=== PATIENT | male | born 1940 | race Caucasian/White ===

== ENCOUNTER → 2019-10-11 00:01 | Outpatient (RCR) | payer OTHER, SELFPAY | LOC: ONCRAD 09-12 14:19 | PROVIDERS: Family Provider Family Medicine; Visit Provider Specialist | DX: Z51.0 Encounter for antineoplastic radiation therapy (principal); C61 Malignant neoplasm of prostate | CPT/HCPCS: 77300; 77336 ×3; 77338; 77385 ×21 ==

== ENCOUNTER 2019-10-31 06:10 | Outpatient (RCR) | payer OTHER, SELFPAY ==
--- NOTE | 2019-10-18 09:43 | ONCRAD TMN_ITS ---
Radiation Oncology Weekly Treatment Management Patient: Gabriele Sommers MR#: [id number] : 1940 Age: 79 Sex: Male Dictated by: Dr. Vincenzo Oconnor Date of Service: 10/18/2019 Referring Physician(s) : Dr. Jose Chambers Primary Diagnosis: C61 - Malignant neoplasm of prostate, Diagnosed 01/15/2018 (Active) Stage X, T2b, NX, MX Radiotherapy to date: Course: Prostate2018, Treatment Site: [id number], Ref. ID: [id number], Energy: 6X, Dose/Fx (cGy): 200, #Fx: 33 / 33, Dose Correction (cGy): 0, Total Dose (cGy): 6,600, Start Date: 08/25/2019, End Date: 10/14/2019, Elapsed Days: 50 Course: Prostate2018, Treatment Site: [id number], Ref. ID: [id number], Energy: 6X, Dose/Fx (cGy): 200, #Fx: 2 / 3, Dose Correction (cGy): 0, Total Dose (cGy): 400, Start Date: 10/17/2019, Elapsed Days: 1 Current Complaints/Interval History: Constitutional Denies lack of appetite, fatigue, fever and night sweats. Gastrointestinal Denies constipation and diarrhea. Has no rectal bleeding or irritation Genitourinary (M) Complains of nocturia gets up about 2 to 3 times per night. Denies dysuria, frequency and urgency. Current Medications: Bicalutamide, calcium, lutein, magnesium, omega 3. Allergies: medical tape. Vital Signs: Performed on 10/18/2019 9:26 AM BMI - 26.0 kg/m2 (high), Height - 70.00 in, Weight - 181.2 lbs, Temperature - 98.6 f, Pulse - 72, Respiration - 20, O2 Sat - 97 %, Pain - 0, Fatigue - 0 and BP - 123/ 82 mm(hg). Physical Exam: Appears stable, no skin erythema or desquamation. Performance Status: 0 - Fully active, able to carry on all predisease activities without restrictions. (ECOG) Lab: None pending in Radiation Oncology. Imaging: No new diagnostic imaging was performed since the last weekly treatment visit. All radiation therapy related imaging (including but not limited to CBCT generated images) was reviewed. Appropriate changes, if any, were made to assure accurate target localization. Impression/Plan: Tolerating treatment well with expected side effects. Continue treatment as planned. CPT: 87830 Signed by: Dr. Vincenzo Oconnor>10/18/2019 9:40:56 AM <<Signature on File>>
[2019-10-31 13:48] LABS: Basophils % 0.4 %; Eosinophils # 0.3 10^3/uL (0.0-0.8); Eosinophils % 5.5 %; Hematocrit 37.9 % (42.0-52.0); Hemoglobin 12.8 g/dL (11.7-16.6); Lymphocytes # 0.5 10^3/uL (0.8-4.8); Lymphocytes % 10.4 %; Mean Corpuscular HGB Conc 33.8 g/dL (30.0-36.0); Mean Corpuscular Hemoglobin 31.3 pg (28.0-34.0); Mean Corpuscular Volume 92.7 fL (80-94); Mean Platelet Volume 10.1 fL (7.4-10.4); Monocytes # 0.3 10^3/uL (0.2-0.9); Monocytes % 6.7 %; Neutrophils # 3.9 10^3/uL (1.8-7.7); Neutrophils % 76.4 %; Nucleated Red Blood Cells % 0 %; Platelet Count 150 10^3/cmm (130-400); Red Blood Count 4.09 10^6/uL (4.1-5.3); Red Cell Distribution Width 13.8 % (12.1-15.1); White Blood Count 5.1 10^3/uL (4.0-10.0)
[2019-10-31 14:17] LABS: Prostate Specific Antigen < 0.02 ng/mL (0-4)
[2019-10-31 14:19] LABS: Testosterone Total 2.5 ng/dL (193-740)
[2019-10-31] MEDS: lidocaine 1% INJ 20 mL INJECTION (15:28)
--- NOTE | 2019-10-31 15:28 | ONC FU_ITS ---
Dr. Quintero follow up note Patient: Gabriele Sommers Unit #: [id number]: 1940 Dicatated By: Saturnino Quintero M.D.Date of Visit:Oct 31, 2019 Onc Med Follow-up/Prog Note History of Present Illness: Mr. Gabriele Sommers, is a 79-year-old gentleman with history of prostrate cancer with [place] score 7 tumor in the majority of right side of the prostate and left side was essentially benign except a small Micro Focus of [place] 6 at left apex underwent robotic-assisted laparoscopic radical prostatectomy on 04/05/2018 and final pathology report showed acinar adenocarcinoma primary [place] pattern 4, secondary [place] pattern 3, approximately 50% prostrate was involved tumor size 2 x 1.8 x 1.6 cm with extra prostatic extension and seminal vesicle invasion seen margins involved invasive carcinoma there is multifocal involvement of periprosthetic soft tissue margins in the anterior and mid aspect of right peripheral zone. There is also focal involvement of periprostatic soft tissue margin in the posterior aspect of the left peripheral zone. Adenocarcinoma also extends to within 1 mm of apical margin bilaterally, lymphovascular invasion seen along the perineural invasion. And now lymph nodes were identified. Post operatively patient developed persistent leakage And no return of erectile function During follow-up with his urologist on 08/19/2018 his PSA gone up to 0.11 compared to 0 .04 on previous visit, As per patient, at that point role of radiation therapy was discussed. But patient declined, patient also declined hormonal therapy rather wants to try herbal therapy e.g. black 'sev', knowing the risks involved this plan. Patient was referred to radiation oncology for evaluation, he was seen by Dr. Oconnor on 09/30/2018, salvage radiation was recommended but patient declined that too. Now being observed with PSA while on Alternative therapy with [place] herbs Finally patient agreed to see radiation oncology on 08/18/2019 because of progressive PSA and agreed to take Casodex in addition to Zoladex. Patient was started on radiation therapy to prostate bed last week and he has completed one month of Casodex.Completed radiation therapy on 10/19/2019 Came for follow-up, denies any specific complaints no fever or chills, no nausea or vomiting, no dysuria and no hematuria. Occasionally hot flashes. Has completed radiation therapy to prostate on 10/19/2019. Tolerating ADT with Zoladex well. Medications: Lutein 1 Tablet (of 20 mg) Oral daily, st. davis wort 1 Capsule Oral daily, Vitamin B12 1 Tablet Oral daily Allergies: medical tape Review of Systems: Constitutional - Appetite is good and weight is stable. No fever, chills, or night sweats. Energy level is good. Pt reports some hot flashes, ENMT - No sinus congestion/drainage. No mouth sores. No sore throat or difficulty swallowing, Hematologic/Lymphatic - No abnormal bruising or bleeding, Respiratory - No shortness of breath. No cough. No pleuritic pain or hemoptysis, Cardiovascular - No angina pain. No palpitations, Gastrointestinal - No nausea or vomiting. No heartburn or acid reflux. No diarrhea or constipation. No blood in the stool or black stools, Genitourinary (M) - No dysuria or hematuria. No urinary frequency. No urgency or incontinence, Musculoskeletal - No joint or bone pain, Neurologic - No headache or dizziness. No numbness/paresthesias or other focal neurologic symptoms, Psychiatric - No anxiety or depression. No insomnia. Vital Signs: Performed on Oct 31, 2019 14:41 Height - 70.00 in Weight - 181.4 lbs (HIGH) BSA - 2.00 sq.m BMI - 26.03 Temperature - 98.4 F Pulse - 63 /min Respiration - 18 /min BP - 128/79 mm(hg) O2 Sat - 97 % Pain - 0 Performance Status: 1 - No physically strenuous activity, but ambulatory and able to carry out light or sedentary work (e.g. office work, light house work). (ECOG) Physical Examination: ENMT - No oral exudates, ulcers, masses, thrush or mucositis. Oropharynx clear. Tongue normal, Respiratory - Lungs are clear to auscultation without rhonchi or wheezing, Cardiovascular - Regular rate and rhythm of heart, Abdomen - Non-tender, non-distended, Good bowel sounds. No guarding or rebound tenderness. No pulsatile masses, Extremities - no edema. Lab/Imaging: Test performed on Oct 31, 2019 13:05 Testosterone 2.5 ng/dL WBC 5.1 10 3/uL RBC 4.09 10^12/L HGB 12.8 g/dL HCT 37.9 % MCV 92.7 fL MCH 31.3 pg MCHC 33.8 g/dL RDW 13.8 % Platelet Count 150 10 3/cmm MPV 10.1 fL Lymphocytes 0.5 10^9/L Neutrophils 0.0 10 3/uL Monocytes 0.3 10^9/L Eosinophils 0.3 10^9/L Basophils 0.0 10^9/L Neutrophil % 5.5 % Manual Lymphocytes 10.4 % Manual Monocytes 6.7 % Manual Eosinophils 5.5 % Manual Basophils 0.4 % NRBCs 0.0 /100 WBC PSA 0.02 ng/mL Test performed on Jul 19, 2019 13:07 Sodium 140 mmol/L Potassium 4.2 mmol/L Chloride 103 mmol/L CO2 25 mmol/L Anion Gap 16.2 BUN 25 mg/dL Creatinine 1.2 mg/dL Cr Clearance (Est) 55.73 mL/min Glucose 118 mg/dl Calcium 9.3 mg/dL Protein, Total 6.6 g/dL Albumin 4.4 g/dL Globulin 2.2 gm/dL Bilirubin, Total 0.8 mg/dL ALT (SGPT) 17 U/L AST (SGOT) 17 U/L Alkaline Phosphatase 95 U/L Impression: Adenocarcinoma prostate status post robotic-assisted laparoscopic radical prostatectomy done on 04/05/2018 final pathology report showed pT3, tumor invades the right seminal vesicle, with positive surgical margins, pNx no lymph nodes submitted, stage pT3,pNx,pMx Intermediate risk Now with progressive PSA level. Initially patient tried alternative therapy but finally started on ADT with Zoladex and Casodex on 08/25/2019 and concurrent with radiation therapy which he completed on 10/19/2019 Plan: Discussed with patient regarding his labs white blood count 5.1 hemoglobin 12.8 crit 37.9 platelets 150,000 PSA 0.02, testosterone 2.5 Clinically, patient is doing well, with no evidence of disease progression.. Patient is tolerating ADT with Zoladex alone well. We'll proceed with next 3 monthly dose of Zoladex today and then return to clinic in 3 months and Being intermediate risk, planning was to give him a short course of adjuvant ADT Signed By: Saturnino Quintero M.D. <<Signature on File>>
[2019-10-31] MEDS: goserelin acetate 10.8 mg Implant IM (15:48)
== END 2019-11-11 23:59 | disposition home or self-care (01) ==
LOC: ONCMED 06:10
PROVIDERS: Family Provider Family Medicine; PCP Family Medicine; Visit Provider Internal Medicine Hematology & Oncology
DX: Z51.0 Encounter for antineoplastic radiation therapy (principal); C61 Malignant neoplasm of prostate; Z79.818 Long term (current) use of other agents affecting estrogen receptors and estrogen levels; Z79.899 Other long term (current) drug therapy; Z90.79 Acquired absence of other genital organ(s)
CPT/HCPCS: 77014; 77336; 77385; 77427; 84153; 84403; 85025; 96372; 96402; 99214; J2001; J9202

== ENCOUNTER 2020-01-30 13:55 | Outpatient (CLI) | payer OTHER, SELFPAY ==
[2020-01-30 14:52] LABS: Prostate Specific Antigen < 0.02 ng/mL (0-4)
[2020-01-30] MEDS: lidocaine 1% INJ 20 mL INJECTION (15:57)
[2020-01-30] MEDS: goserelin acetate 10.8 mg Implant IM (16:09)
--- NOTE | 2020-01-30 16:21 | ONC FU_ITS ---
Dr. Quintero follow up note Patient: Gabriele Sommers Unit #: [id number]: 1940 Dicatated By: Saturnino Quintero M.D.Date of Visit:Jan 30, 2020 Onc Med Follow-up/Prog Note History of Present Illness: Mr. 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 There is also focal involvement of periprostatic soft tissue margin in the posterior aspect of the left peripheral zone. Adenocarcinoma also extends to within 1 mm of apical margin bilaterally, lymphovascular invasion seen along the perineural invasion. And now lymph nodes were identified. Post operatively patient developed persistent leakage And no return of erectile function During follow-up with his urologist on 08/19/2018 his PSA gone up to 0.11 compared to 0 .04 on previous visit, As per patient, at that point role of radiation therapy was discussed. But patient declined, patient also declined hormonal therapy rather wants to try herbal therapy e.g. black 'sev', knowing the risks involved this plan. Patient was referred to radiation oncology for evaluation, he was seen by Dr. Oconnor on 09/30/2018, salvage radiation was recommended but patient declined that too. Now being observed with PSA while on Alternative therapy with [place] herbs Finally patient agreed to see radiation oncology on 08/18/2019 because of progressive PSA and agreed to take Casodex in addition to Zoladex. Patient was started on radiation therapy to prostate bed last week and he has completed one month of Casodex.Completed radiation therapy on 10/19/2019 Came for follow-up, denies any specific complaints no fever or chills, no nausea or vomiting, no dysuria and no hematuria. Occasionally hot flashes. Has completed radiation therapy to prostate on 10/19/2019. Tolerating ADT with Zoladex well Came for follow-up, denies any specific complaints, except generalized weakness and fatigue, occasionally hot flashes otherwise no fever or chills, no nausea vomiting and tolerating 3 monthly Zoladex well Medications: Calcium 1 Tablet (of 500 mg) Oral daily, Lutein 1 Tablet (of 20 mg) Oral daily, st. davis wort 1 Capsule Oral daily, Vitamin B12 1 Tablet Oral daily Allergies: medical tape Review of Systems: Review of Systems is not available for this patient. Vital Signs: Performed on Jan 30, 2020 15:06 Height - 70.00 in Weight - 186.6 lbs (HIGH) BSA - 2.03 sq.m BMI - 26.77 Temperature - 97.9 F (LOW) Pulse - 65 /min Respiration - 17 /min BP - 140/90 mm(hg) O2 Sat - 96 % Pain - 0 Performance Status: 0 - Fully active, able to carry on all predisease activities without restrictions. (ECOG) Physical Examination: ENMT - no sores or thrush, Tongue normal, Respiratory - Lungs are clear to auscultation, Cardiovascular - Regular rate and rhythm of heart, Abdomen - Non-tender, Good bowel sounds. No guarding or rebound tenderness, Extremities - no edema. Lab/Imaging: Test performed on Oct 31, 2019 13:05 Testosterone 2.5 ng/dL WBC 5.1 10 3/uL RBC 4.09 10^12/L HGB 12.8 g/dL HCT 37.9 % MCV 92.7 fL MCH 31.3 pg MCHC 33.8 g/dL RDW 13.8 % Platelet Count 150 10 3/cmm MPV 10.1 fL Lymphocytes 0.5 10^9/L Neutrophils 0.0 10 3/uL Monocytes 0.3 10^9/L Eosinophils 0.3 10^9/L Basophils 0.0 10^9/L Neutrophil % 5.5 % Manual Lymphocytes 10.4 % Manual Monocytes 6.7 % Manual Eosinophils 5.5 % Manual Basophils 0.4 % NRBCs 0.0 /100 WBC PSA 0.02 ng/mL Impression: Adenocarcinoma prostate status post robotic-assisted laparoscopic radical prostatectomy done on 04/05/2018 final pathology report showed pT3, tumor invades the right seminal vesicle, with positive surgical margins, pNx no lymph nodes submitted, stage pT3,pNx,pMx Intermediate risk Now with progressive PSA level. Initially patient tried alternative therapy but finally started on ADT with Zoladex and Casodex on 08/25/2019 and concurrent with radiation therapy which he completed on 10/19/2019 Plan: Discussed with patient regarding his labs his PSA is less than 0.02 Clinically, patient is doing well with no signs symptoms suggestive of recurrence/progression of prostrate cancer. His PSA is less than 0.02, and tolerating Zoladex well. We'll proceed with next 3 monthly dose of Zoladex today and then he will return to clinic in 3 months with PSA, patient continue to tolerate Zoladex well then we'll give him final dose of adjuvant Zoladex in 3 months. Signed By: Saturnino Quintero M.D. <<Signature on File>>
== END 2020-01-30 13:56 | disposition home or self-care (01) ==
PROVIDERS: Family Provider Family Medicine; PCP Family Medicine; Visit Provider Internal Medicine Hematology & Oncology
DX: C61 Malignant neoplasm of prostate (principal); Z79.818 Long term (current) use of other agents affecting estrogen receptors and estrogen levels; Z79.899 Other long term (current) drug therapy
CPT/HCPCS: 36415; 84153; 96372; 96402; 99214; J2001; J9202

== ENCOUNTER 2020-04-03 09:14 | Outpatient (CLI) | payer OTHER, SELFPAY ==
[2020-04-03 10:05] LABS: Prostate Specific Antigen 0.006 ng/mL (0-4)
[2020-04-03 10:06] LABS: Testosterone Total 2.5 ng/dL (193-740)
--- NOTE | 2020-04-03 18:46 | ONC FU_ITS ---
Dr. Quintero follow up note Patient: Gabriele Sommers Unit #: [id number]: 1940 Dicatated By: Saturnino Quintero M.D.Date of Visit:Apr 03, 2020 Onc Med Follow-up/Prog Note History of Present Illness: Mr. 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 There is also focal involvement of periprostatic soft tissue margin in the posterior aspect of the left peripheral zone. Adenocarcinoma also extends to within 1 mm of apical margin bilaterally, lymphovascular invasion seen along the perineural invasion. And now lymph nodes were identified. Post operatively patient developed persistent leakage And no return of erectile function During follow-up with his urologist on 08/19/2018 his PSA gone up to 0.11 compared to 0 .04 on previous visit, As per patient, at that point role of radiation therapy was discussed. But patient declined, patient also declined hormonal therapy rather wants to try herbal therapy e.g. black 'sev', knowing the risks involved this plan. Patient was referred to radiation oncology for evaluation, he was seen by Dr. Oconnor on 09/30/2018, salvage radiation was recommended but patient declined that too. Now being observed with PSA while on Alternative therapy with [place] herbs Finally patient agreed to see radiation oncology on 08/18/2019 because of progressive PSA and agreed to take Casodex in addition to Zoladex. Patient was started on radiation therapy to prostate bed last week and he has completed one month of Casodex.Completed radiation therapy on 10/19/2019 Now on 3 monthly Zoladex therapy Came for follow-up, denies any specific complaints except chronic bilateral shoulder pain more on the left side with restricted movement and also complaining of neck stiffness which is chronic in nature and bilateral wrist swellings. As per patient and his due to decline in his cognitive status he underwent MRI scan of the brain on March 02, 2020 which showed no significant abnormality but indeterminate 13 mm enhancing lesion within the right occipital bone which is nonspecific and bone scan was recommended so patient underwent bone scan on March 20, 2020 which showed calvarial lesion in question shows increased uptake and is concerning for potential neoplasm. And also asymmetric increased uptake pertaining to the left humeral head that may be simply represent degenerative changes although neoplasm cannot be excluded. Because of this abnormality he was sent to clinic for evaluation. Patient denies any trauma to his head or his right scalp. But he has a chronic left shoulder arthritis which is progressive and now restricting movement.Otherwise tolerating 3 monthly Zoladex well Medications: Calcium 1 Tablet (of 500 mg) Oral daily, Lutein 1 Tablet (of 20 mg) Oral daily, st. davis wort 1 Capsule Oral daily, Vitamin B12 1 Tablet Oral daily Allergies: medical tape Review of Systems: Constitutional - Appetite is good and weight is stable. No fever, chills, or night sweats. Energy level is good. Pt reports some hot flashes, ENMT - No sinus congestion/drainage. No mouth sores. No sore throat or difficulty swallowing, Hematologic/Lymphatic - No abnormal bruising or bleeding, Respiratory - No shortness of breath. No cough. No pleuritic pain or hemoptysis, Cardiovascular - No angina pain. No palpitations, Gastrointestinal - No nausea or vomiting. No heartburn or acid reflux. No diarrhea or constipation. No blood in the stool or black stools, Genitourinary (M) - No dysuria or hematuria. No urinary frequency. No urgency or incontinence, Musculoskeletal - No joint or bone pain, Neurologic - No headache or dizziness. No numbness/paresthesias or other focal neurologic symptoms, Psychiatric - No anxiety or depression. No insomnia. Vital Signs: Performed on Apr 03, 2020 08:19 Height - 70.00 in Weight - 188.0 lbs (HIGH) BSA - 2.03 sq.m BMI - 26.98 Temperature - 98.4 F Pulse - 66 /min Respiration - 18 /min BP - 126/87 mm(hg) O2 Sat - 97 % Pain - 5 Performance Status: 1 - No physically strenuous activity, but ambulatory and able to carry out light or sedentary work (e.g. office work, light house work). (ECOG) Physical Examination: ENMT - No mouth sores, no jaundice, no thrush, Respiratory - Lungs are clear, Cardiovascular - Regular rate and rhythm of heart, Abdomen - Soft, bowel sounds present, Extremities - No visible edema. Lab/Imaging: Test performed on Jan 30, 2020 14:13 PSA < 0.02 ng/mL Test performed on Oct 31, 2019 13:05 Testosterone 2.5 ng/dL WBC 5.1 10 3/uL RBC 4.09 10^12/L HGB 12.8 g/dL HCT 37.9 % MCV 92.7 fL MCH 31.3 pg MCHC 33.8 g/dL RDW 13.8 % Platelet Count 150 10 3/cmm MPV 10.1 fL Lymphocytes 0.5 10^9/L Neutrophils 0.0 10 3/uL Monocytes 0.3 10^9/L Eosinophils 0.3 10^9/L Basophils 0.0 10^9/L Neutrophil % 5.5 % Manual Lymphocytes 10.4 % Manual Monocytes 6.7 % Manual Eosinophils 5.5 % Manual Basophils 0.4 % NRBCs 0.0 /100 WBC Impression: Adenocarcinoma prostate status post robotic-assisted laparoscopic radical prostatectomy done on 04/05/2018 final pathology report showed pT3, tumor invades the right seminal vesicle, with positive surgical margins, pNx no lymph nodes submitted, stage pT3,pNx,pMx Intermediate risk Now with progressive PSA level. Initially patient tried alternative therapy but finally started on ADT with Zoladex and Casodex on 08/25/2019 and concurrent with radiation therapy which he completed on 10/19/2019 Plan: Discussed with patient regarding his bone scan/MRI scan of her head findings clinically it appears findings are very nonspecific and his last PSA was checked in January was almost undetectable and he is being treated with ADT with Zoladex with excellent disease control and his MRI scan of head findings were very nonspecific whereas bone scan findings again a single lesion in right calvarium and left humeral head lesion could be due to arthritis. We will repeat his PSA if his PSA shows progression then will consider further work-up which includes CT scan of abdomen pelvis otherwise we will continue with 3 monthly Zoladex which is due next month and repeat his bone scan in 3 months. Because of progressive musculoskeletal pain and arthritis involving bilateral wrists bilateral shoulder and neck, we will refer him to rheumatology for evaluation. Patient may benefit from MRI scan of left shoulder regarding shoulder pain and restricted movement management as well as evaluation of left humerus head lesion seen on bone scan. Patient return to clinic in a month for his 3 monthly scheduled Zoladex, and we will repeat his PSA at that time too. Signed By: Saturnino Quinetro M.D. <<Signature on File>>
== END 2020-04-03 09:15 | disposition home or self-care (01) ==
PROVIDERS: PCP Family Medicine; Visit Provider Internal Medicine Hematology & Oncology
DX: C61 Malignant neoplasm of prostate (principal); R97.21 Rising PSA following treatment for malignant neoplasm of prostate; R94.8 Abnormal results of function studies of other organs and systems; M79.10 Myalgia, unspecified site; M13.832 Other specified arthritis, left wrist; M13.831 Other specified arthritis, right wrist; M25.512 Pain in left shoulder; Z90.79 Acquired absence of other genital organ(s); Z79.818 Long term (current) use of other agents affecting estrogen receptors and estrogen levels
CPT/HCPCS: 84153; 84403; 99214

== ENCOUNTER → 2020-05-03 15:55 | Outpatient (BNVA) | payer OTHER, SELFPAY | PROVIDERS: PCP Family Medicine; Visit Provider Internal Medicine Rheumatology | DX: M19.90 Unspecified osteoarthritis, unspecified site (principal); Z79.899 Other long term (current) drug therapy; M25.541 Pain in joints of right hand; M25.542 Pain in joints of left hand; M75.00 Adhesive capsulitis of unspecified shoulder; G20 Parkinson's disease; C61 Malignant neoplasm of prostate; G89.29 Other chronic pain; M54.5 Low back pain | CPT/HCPCS: 99204 ==

== ENCOUNTER 2020-05-04 13:51 | Outpatient (CLI) | payer OTHER, SELFPAY ==
--- NOTE | 2020-05-04 13:55 | XRR_ITS ---
PROCEDURE INFORMATION: Exam: XR Left Foot Complete Exam date and time: 05/04/2020 2:22 PM Age: 80 years old Clinical indication: Foot; Left; Patient HX: C/O bilat joint pain extremities x 2 years. Inflammatory arthritis. HX of prostate cancer TECHNIQUE: Imaging protocol: XR Left foot. Views: 3 or more views. COMPARISON: No relevant prior studies available. FINDINGS: Bones/joints: Negative for acute bony abnormality Soft tissues: Normal. XR/XR foot LT min 3V* [id number] IMPRESSION: No acute findings.
--- NOTE | 2020-05-04 13:55 | XRR_ITS ---
PROCEDURE INFORMATION: Exam: XR Left Shoulder Exam date and time: 05/04/2020 2:22 PM Age: 80 years old Clinical indication: Shoulder; Left; Patient HX: C/O bilat joint pain extremities x 2 years. Inflammatory arthritis. HX of prostate cancer TECHNIQUE: Imaging protocol: XR Left shoulder. Views: 2 or more views. COMPARISON: No relevant prior studies available. FINDINGS: Bones/joints: Negative for acute bony abnormality. There is osteoarthritis involving the glenohumeral joint with narrowing sclerosis and bone spurs. Soft tissues: Unremarkable There is a ossific structure extending from the lateral aspect of the humeral head traversing the clavicle which may represent a normal variation XR/XR shoulder LT 1V [id number] IMPRESSION: 1. No acute findings. 2. Osteoarthritis
--- NOTE | 2020-05-04 13:55 | XRR_ITS ---
PROCEDURE INFORMATION: Exam: XR Right Shoulder Exam date and time: 05/04/2020 2:22 PM Age: 80 years old Clinical indication: Shoulder; Right; Patient HX: C/O bilat joint pain extremities x 2 years. Inflammatory arthritis. HX of prostate cancer TECHNIQUE: Imaging protocol: XR Right shoulder. Views: 1 view. COMPARISON: No relevant prior studies available. FINDINGS: Bones/joints: Negative for acute bony abnormality. Osteoarthritis is seen with sclerosis and narrowing with bone spurs in the glenohumeral joint. There is a nonanatomic structure extending from the lateral humeral head to the superior aspect of the clavicle. This finding is of unclear etiology . . Examination is negative for blastic metastatic changes associated with prostate disease Soft tissues: Unremarkable soft tissues. XR/XR shoulder RT 1V [id number] IMPRESSION: Osteoarthritis of the glenohumeral joint Negative for acute bony abnormality. Non anatomic structure right shoulder as described
--- NOTE | 2020-05-04 13:55 | XRR_ITS ---
PROCEDURE INFORMATION: Exam: XR Left Hand Exam date and time: 05/04/2020 2:17 PM Age: 80 years old Clinical indication: Hand; Left; Patient HX: C/O bilat joint pain extremities. Inflammatory arthritis. HX of prostate cancer TECHNIQUE: Imaging protocol: XR Left hand. Views: 3 or more views. COMPARISON: No relevant prior studies available. FINDINGS: Bones/joints: There is evidence of mild osteoarthritis seen with narrowing of the interphalangeal articulations and the radiocarpal articulation. No acute bony abnormalities seen. Soft tissues: Normal. XR/XR hand LT min 3V* [id number] IMPRESSION: No acute bony abnormality.
--- NOTE | 2020-05-04 13:55 | XRR_ITS ---
PROCEDURE INFORMATION: Exam: XR Right Foot Complete Exam date and time: 05/04/2020 2:20 PM Age: 80 years old Clinical indication: Foot; Right; Patient HX: C/O bilat joint pain extremities x 2 years. Inflammatory arthritis. HX of prostate cancer TECHNIQUE: Imaging protocol: XR Right foot. Views: 3 or more views. COMPARISON: No relevant prior studies available. FINDINGS: Bones/joints: Negative for acute bony abnormality. The exam is negative for bone changes corresponding to inflammatory arthritis Soft tissues: Normal. XR/XR foot RT min 3V* [id number] IMPRESSION: No acute findings.
--- NOTE | 2020-05-04 13:55 | XRR_ITS ---
PROCEDURE INFORMATION: Exam: XR Lumbosacral Spine, 2 or 3 Views Exam date and time: 05/04/2020 2:20 PM Age: 80 years old Clinical indication: Low back pain and other: Bilat joint pain; Patient HX: Low back pain x 2 weeks. Bilat joint pain x 2 years. HX of prostate cancer; Additional info: Inflammatory arthritis TECHNIQUE: Imaging protocol: XR of the lumbosacral spine, 2 or 3 views. COMPARISON: CT Abdomen/[facility]el[facility] [id number] 02/24/2018 10:11 AM FINDINGS: Vertebrae: Moderate to severe multilevel spine degenerative changes including degenerative disc disease, spondylosis and facet degenerative changes. Vasculature: Calcification of the abdominal aorta and/or iliac arteries consistent with atherosclerotic vessel disease. Soft tissues: Unremarkable. XR/XR lumbar spine 2-3V* [id number] IMPRESSION: Moderate to severe multilevel spine degenerative changes including degenerative disc disease, spondylosis and facet degenerative changes.
--- NOTE | 2020-05-04 13:55 | XRR_ITS ---
PROCEDURE INFORMATION: Exam: XR Chest, 2 Views Exam date and time: 05/04/2020 2:22 PM Age: 80 years old Clinical indication: Other: Bilat joint pain extremities; Patient HX: C/O bilat joint pain. No chest symptoms. Inflammatory arthritis. HX of prostate cancer TECHNIQUE: Imaging protocol: XR of the chest Views: 2 views. COMPARISON: No relevant prior studies available. FINDINGS: Lungs: Unremarkable. No consolidation. Pleural space: Unremarkable. No pleural effusion. No pneumothorax. Heart/Mediastinum: Unremarkable. No cardiomegaly. Bones/joints: Unremarkable. XR/XR chest 2V* [id number] IMPRESSION: No acute findings.
--- NOTE | 2020-05-04 13:55 | XRR_ITS ---
PROCEDURE INFORMATION: Exam: XR Right Hand Exam date and time: 05/04/2020 2:14 PM Age: 80 years old Clinical indication: Hand; Right; Patient HX: C/O bilat joint pain extremities x 2 years. Inflammatory arthritis. HX of prostate cancer TECHNIQUE: Imaging protocol: XR Right hand. Views: 3 or more views. COMPARISON: No relevant prior studies available. FINDINGS: Bones/joints: There is mild osteoarthritis seen with narrowing of the interphalangeal articulations of multiple digits. Sclerosis and narrowing is seen in the radiocarpal articulation and the 1st carpal metacarpal articulation. Exam is negative for acute fractures. Soft tissues: Normal. XR/XR hand RT min 3V* [id number] IMPRESSION: Negative for acute bony abnormality
[2020-05-04 14:40] LABS: Basophils % 0.4 %; Eosinophils # 0.2 10^3/uL (0.0-0.8); Eosinophils % 4.6 %; Hematocrit 38.7 % (42.0-52.0); Hemoglobin 12.8 g/dL (11.7-16.6); Lymphocytes # 0.9 10^3/uL (0.8-4.8); Mean Corpuscular HGB Conc 33.1 g/dL (30.0-36.0); Mean Corpuscular Hemoglobin 30.1 pg (28.0-34.0); Mean Corpuscular Volume 91.1 fL (80-94); Mean Platelet Volume 10.4 fL (7.4-10.4); Monocytes # 0.4 10^3/uL (0.2-0.9); Monocytes % 8.8 %; Neutrophils # 3.41 10^3/uL (1.8-7.7); Neutrophils % 68.4 %; Nucleated Red Blood Cells % 0 %; Platelet Count 147 10^3/cmm (130-400); Red Blood Count 4.25 10^6/uL (4.1-5.3); Red Cell Distribution Width 13.7 % (12.1-15.1)
[2020-05-04 15:08] LABS: Alanine Aminotransferase 15 U/L (0-41); Albumin Level 4.2 g/dL (3.5-5.2); Alkaline Phosphatase 78 IU/L (40-130); Aspartate Amino Transferase 16 U/L (0-40); C Reactive Protein 0.6 mg/L (0.0-4.9); Globulin 2.5 g/dL (1.3-4.6); Total Bilirubin 0.6 mg/dL (0.15-1.2); Total Protein 6.7 g/dL (6.6-8.7)
[2020-05-04 15:26] LABS: Erythrocyte Sedimentation Rate 13 mm/hr (0-10)
[2020-05-04 15:27] LABS: 25 Hydroxy Vitamin D 39 ng/mL (30-100)
[2020-05-04 16:10] LABS: Hepatitis C Virus Antibody Non-Reactive (Nonreactive)
[2020-05-04 16:11] LABS: Hepatitis B Surface Antigen Non-Reactive (Nonreactive)
[2020-05-04 16:21] LABS: Hepatitis B Core AB, Total Non-Reactive (Nonreactive)
[2020-05-07 12:45] LABS: Quantiferon Mitogen 9.92 IU/mL; Quantiferon Nil 0.01 IU/mL; Quantiferon Plus TB2 0.01 IU/mL; Quantiferon TB Gold NEGATIVE (NEGATIVE)
[2020-05-07 15:05] LABS: Cyclic Citrullinated Peptide <16 UNITS
== END 2020-05-04 13:52 | disposition home or self-care (01) ==
PROVIDERS: PCP Family Medicine; Visit Provider Internal Medicine Rheumatology
DX: M19.90 Unspecified osteoarthritis, unspecified site (principal); Z79.899 Other long term (current) drug therapy; Z11.59 Encounter for screening for other viral diseases; Z85.46 Personal history of malignant neoplasm of prostate; M19.012 Primary osteoarthritis, left shoulder; M19.011 Primary osteoarthritis, right shoulder; M51.36 Other intervertebral disc degeneration, lumbar region; M47.816 Spondylosis without myelopathy or radiculopathy, lumbar region
CPT/HCPCS: 36415; 71046; 72100; 73020; 73130; 73630; 80076; 82306; 82565; 85025; 85651; 86140; 86431; 86480; 86704; 86803; 87340

== ENCOUNTER → 2020-06-04 13:59 | Outpatient (BNVA) | payer OTHER, SELFPAY | PROVIDERS: PCP Family Medicine; Visit Provider Internal Medicine Rheumatology | DX: M25.541 Pain in joints of right hand (principal); Z79.899 Other long term (current) drug therapy; M25.542 Pain in joints of left hand; G20 Parkinson's disease; C61 Malignant neoplasm of prostate; M54.5 Low back pain; G89.29 Other chronic pain; M75.01 Adhesive capsulitis of right shoulder; M75.02 Adhesive capsulitis of left shoulder | CPT/HCPCS: 99214 ==

== ENCOUNTER 2020-06-21 10:25 | Outpatient (CLI) | payer OTHER, SELFPAY ==
--- NOTE | 2020-06-21 11:00 | MR_ITS ---
WS: [id number] MRI LEFT SHOULDER NONCONTRAST TECHNIQUE: Sagittal T2, coronal T1, T2 and proton density imaging. Axial gradient PDE imaging. CLINICAL INFORMATION: M19.90 Unspecified osteoarthritis, unspecified site COMPARISON: None. FINDINGS: Advanced degenerative arthritis AC joint. Loss of the subacromial space. Small amount of subacromial subdeltoid fluid. Advanced degenerative narrowing at the glenohumeral joint with subchondral cystic c hange involving the humeral head and glenoid. Advanced joint space narrowing. Hypertrophic spurring a long the medial humeral neck. Diffuse chronic thinning of the supraspinatus and infraspinatus. No full-thickness rotator cuff tears . Normal teres minor. Chronic thinning of the subscapularis. Normal biceps tendon in the bicipital gr oove. Physiologic fluid along the biceps tendon sheath. Cystic degenerative change involving the carlita ral head and greater tuberosity. MR/MR shoulder LT wo con* [id number] IMPRESSION: 1. Advanced degenerative arthritis at the glenohumeral joint with subchondral cystic change and complete loss of the joint space. 2. Loss of the subacromial space with chronic thinning of the rotator cuff. Ch ronic thinning of the supraspinatus and infraspinatus. No full-thickness rotato r cuff tears. 3. Normal biceps tendon in the bicipital groove. 4. Hypertrophic spurring along the medial humeral neck and glenoid. 5. Moderate degenerative arthritis AC joint with a small amount of edema.
--- NOTE | 2020-06-21 11:45 | MR_ITS ---
WS: [id number] MRI RIGHT SHOULDER NONCONTRAST TECHNIQUE: Sagittal T2, coronal T1, T2 and proton density imaging. Axial gradient PDE imaging. CLINICAL INFORMATION: M25.519 Pain in unspecified shoulder COMPARISON: None. FINDINGS: Advanced degenerative arthritis at the AC joint with a small amount of edema. Subacromial spurring. N arrowing of the subacromial space. Advanced degenerative narrowing at the glenohumeral joint with sub chondral cystic change. Hypertrophic spurring along the medial humeral neck. Normal supraspinatus and infraspinatus with chronic thinning. Normal teres minor. Chronic thinning of the subscapularis which is grossly intact. No full-thickness rotator cuff tears. Normal biceps tendon in the bicipital groove. Chronic degenerative fraying of the glenoid labrum. MR/MR shoulder RT wo con* [id number] IMPRESSION: 1. Moderate degenerative arthritis at the AC joint with small amount of edema and subacromial spurring. Narrowing of the subacromial space. 2. Advanced degenerative narrowing at the glenohumeral joint with hypertrophic spurring and subchondral cystic change. 3. Chronic thinning of the supraspinatus and infraspinatus. No full-thickness rotator cuff tears. 4. Normal biceps tendon in the bicipital groove.
== END 2020-06-21 10:26 | disposition home or self-care (01) ==
LOC: RADSHAW 10:26
PROVIDERS: PCP Family Medicine; Visit Provider Internal Medicine Rheumatology
DX: M19.90 Unspecified osteoarthritis, unspecified site (principal); R93.89 Abnormal findings on diagnostic imaging of other specified body structures; M19.011 Primary osteoarthritis, right shoulder; R60.0 Localized edema; M19.012 Primary osteoarthritis, left shoulder
CPT/HCPCS: 73221

== ENCOUNTER 2020-07-05 07:50 | Outpatient (CLI) | payer OTHER, SELFPAY ==
--- NOTE | 2020-07-05 07:56 | NM_ITS ---
WS: [id number] NUCLEAR MEDICINE BONE SCAN Radiopharmaceutical: 25.1 Tc-99m MDP mCi IV Injection site: Left antecubital Postinjection imaging delay: 1 hr CLINICAL INFORMATION: RE-STAGING EVALUATION/PROSTATE CA/BONE PAIN COMPARISON: FINDINGS: Bone lesions: There are no osseous lesions suspicious for metastatic disease. Soft tissue contours: Normal. Kidneys: Normal. Other findings: Degenerative arthritis left glenohumeral joint. This is stable since 2011. Previously described uptake at the left tibial tuberosity has decreased in intensity. NM/NM bone scan whole body* [id number] IMPRESSION: No evidence of osseous metastatic disease.
[2020-07-05 08:54] LABS: Prostate Specific Antigen < 0.006 ng/mL (0-4)
== END 2020-07-05 07:51 | disposition home or self-care (01) ==
LOC: NM 07:50
PROVIDERS: PCP Family Medicine; Visit Provider Internal Medicine Hematology & Oncology
DX: C61 Malignant neoplasm of prostate (principal)
CPT/HCPCS: 36415; 78306; 84153; A9561

== ENCOUNTER 2020-07-13 09:30 | Outpatient (CLI) | payer OTHER, SELFPAY ==
--- NOTE | 2020-07-13 12:20 | ONC FU_ITS ---
Dr. Quintero follow up note Patient: Gabriele Sommers Unit #: [id number]: 1940 Dicatated By: Saturnino Quintero M.D.Date of Visit:Jul 13, 2020 Onc Med Follow-up/Prog Note History of Present Illness: Mr. 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 There is also focal involvement of periprostatic soft tissue margin in the posterior aspect of the left peripheral zone. Adenocarcinoma also extends to within 1 mm of apical margin bilaterally, lymphovascular invasion seen along the perineural invasion. And now lymph nodes were identified. Post operatively patient developed persistent leakage And no return of erectile function During follow-up with his urologist on 08/19/2018 his PSA gone up to 0.11 compared to 0 .04 on previous visit, As per patient, at that point role of radiation therapy was discussed. But patient declined, patient also declined hormonal therapy rather wants to try herbal therapy e.g. black 'sev', knowing the risks involved this plan. Patient was referred to radiation oncology for evaluation, he was seen by Dr. Oconnor on 09/30/2018, salvage radiation was recommended but patient declined that too. Now being observed with PSA while on Alternative therapy with [place] herbs Finally patient agreed to see radiation oncology on 08/18/2019 because of progressive PSA and agreed to take Casodex in addition to Zoladex. Patient was started on radiation therapy to prostate bed last week and he has completed one month of Casodex.Completed radiation therapy on 10/19/2019 Patient continue with Zoladex still January 30, 2020, he was supposed to come back for 3 monthly dose in April 2020 but patient and his decided not to take anymore because of related side effects e.g. hot flashes. 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 Medications: Acetaminophen Extra Strength 2 Tablet (of 500 mg) Oral b.i.d., Calcium 1 Tablet (of 500 mg) Oral daily, Hydroxychloroquine Sulfate 1 Tablet (of 200 mg) Oral b.i.d., Lutein 1 Tablet (of 20 mg) Oral daily, st. davis wort 1 Capsule Oral daily, Vitamin B12 1 Tablet Oral daily Allergies: medical tape Review of Systems: Constitutional - Appetite is good and weight is stable. No fever, chills, or night sweats. Energy level is good. Pt reports some hot flashes, ENMT - No sinus congestion/drainage. No mouth sores. No sore throat or difficulty swallowing, Hematologic/Lymphatic - No abnormal bruising or bleeding, Respiratory - No shortness of breath. No cough. No pleuritic pain or hemoptysis, Cardiovascular - No angina pain. No palpitations, Gastrointestinal - No nausea or vomiting. No heartburn or acid reflux. No diarrhea or constipation. No blood in the stool or black stools, Genitourinary (M) - No dysuria or hematuria. No urinary frequency. No urgency or incontinence, Musculoskeletal - Positive for shoulder pain, Neurologic - No headache or dizziness. No numbness/paresthesias or other focal neurologic symptoms, Psychiatric - No anxiety or depression. No insomnia. Vital Signs: Performed on Jul 13, 2020 10:01 Height - 70.00 in Weight - 186.6 lbs (LOW) BSA - 2.03 sq.m BMI - 26.77 Temperature - 97.3 F (LOW) Pulse - 57 /min (LOW) Respiration - 20 /min BP - 159/92 mm(hg) (HIGH) O2 Sat - 99 % Pain - 0 Performance Status: 1 - No physically strenuous activity, but ambulatory and able to carry out light or sedentary work (e.g. office work, light house work). (ECOG) Physical Examination: ENMT - No mouth sores, no thrush no jaundice, Respiratory - Lungs are clear to auscultation, Cardiovascular - Regular rate and rhythm of heart, Abdomen - Soft, bowel sounds, Extremities - No visible edema. Lab/Imaging: Test performed on Apr 03, 2020 09:25 Testosterone, Total 2.5 ng/dL PSA 0.006 ng/mL Impression: Adenocarcinoma prostate status post robotic-assisted laparoscopic radical prostatectomy done on 04/05/2018 final pathology report showed pT3, tumor invades the right seminal vesicle, with positive surgical margins, pNx no lymph nodes submitted, stage pT3,pNx,pMx Intermediate risk Now with progressive PSA level. Initially patient tried alternative therapy but finally started on ADT with Zoladex and Casodex on 08/25/2019 and concurrent with radiation therapy which he completed on 10/19/2019 Plan: Discussed with patient regarding his labs PSA less than 0.006 and bone scan done on July 05, 2020 showed no evidence of bone mets Clinically, patient doing well with no new signs symptom except chronic bilateral shoulder pain more on the left side, patient is being followed by pot lining supervisor. As for the prostate cancer is concerned his PSA continues to improve now less than 0.006 and recently done follow-up bone scan shows no evidence of bone mets, patient decided to discontinue Zoladex on his own and did not come for his 3 monthly dose in April 2020 and now patient and his have decided to discontinue all the treatment rather opted for follow-up with observation alone. Knowing all the risk versus benefits involved with observation alone option. So at patient's request we will discontinue Zoladex rather observe he will return to clinic in 3 months with PSA. Signed By: Saturnino Quintero M.D. <<Signature on File>>
== END 2020-07-13 09:31 | disposition home or self-care (01) ==
LOC: ONCMED 09:31
PROVIDERS: PCP Family Medicine; Visit Provider Internal Medicine Hematology & Oncology
DX: C61 Malignant neoplasm of prostate (principal); Z92.23 Personal history of estrogen therapy; Z90.79 Acquired absence of other genital organ(s)
CPT/HCPCS: G0463

== ENCOUNTER → 2020-08-15 14:54 | Outpatient (BNVA) | payer OTHER, SELFPAY | PROVIDERS: PCP Family Medicine; Visit Provider Internal Medicine Rheumatology | DX: Z79.899 Other long term (current) drug therapy (principal) | CPT/HCPCS: 80076; 82565; 85025; 85651; 86140 ==

== ENCOUNTER → 2020-08-30 09:18 | Outpatient (BNVA) | payer OTHER, SELFPAY | PROVIDERS: PCP Family Medicine; Referring Provider Internal Medicine Rheumatology; Visit Provider Specialist | DX: M25.512 Pain in left shoulder (principal); M19.012 Primary osteoarthritis, left shoulder | CPT/HCPCS: 73030 ==

== ENCOUNTER → 2020-09-18 14:59 | Outpatient (BNVA) | payer OTHER, SELFPAY | PROVIDERS: PCP Family Medicine; Visit Provider Internal Medicine Rheumatology | DX: M15.9 Polyosteoarthritis, unspecified (principal); M75.00 Adhesive capsulitis of unspecified shoulder; Z79.899 Other long term (current) drug therapy; M54.5 Low back pain; G89.29 Other chronic pain; Z87.891 Personal history of nicotine dependence | CPT/HCPCS: 99214 ==

== ENCOUNTER 2020-11-06 11:18 | Outpatient (CLI) | payer OTHER, MEDICARE, SELFPAY ==
[2020-11-06 13:15] LABS: Prostate Specific Antigen 0.006 ng/mL (0-4)
--- NOTE | 2020-11-06 14:22 | ONC FU_ITS ---
Dr. Quintero follow up note Patient: Gabriele Sommers Unit #: [id number]: 1940 Dicatated By: Saturnino Quintero M.D.Date of Visit:Nov 06, 2020 Onc Med Follow-up/Prog Note History of Present Illness: Mr. 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 There is also focal involvement of periprostatic soft tissue margin in the posterior aspect of the left peripheral zone. Adenocarcinoma also extends to within 1 mm of apical margin bilaterally, lymphovascular invasion seen along the perineural invasion. And now lymph nodes were identified. Post operatively patient developed persistent leakage And no return of erectile function During follow-up with his urologist on 08/19/2018 his PSA gone up to 0.11 compared to 0 .04 on previous visit, As per patient, at that point role of radiation therapy was discussed. But patient declined, patient also declined hormonal therapy rather wants to try herbal therapy e.g. black 'sev', knowing the risks involved this plan. Patient was referred to radiation oncology for evaluation, he was seen by Dr. Oconnor on 09/30/2018, salvage radiation was recommended but patient declined that too.was observed with PSA while on Alternative therapy with [place] herbs Finally patient agreed to see radiation oncology on 08/18/2019 because of progressive PSA and agreed to take Casodex in addition to Zoladex. Patient was started on radiation therapy to prostate bed last week and he has completed one month of Casodex.Completed radiation therapy on 10/19/2019 Patient continue with Zoladex still January 30, 2020, he was supposed to come back for 3 monthly dose in April 2020 but patient and his decided not to take anymore because of related side effects e.g. hot flashes. Bone scan done on July 05, 2020 shows no evidence of bone metsAnd his PSA on July 05, 2020 was less than 0.006 Came for follow-up, denies any specific complaints, no fever chills, no nausea or vomiting, no diarrhea or constipation, no new bony pains, no hematuria or dysuria Medications: Acetaminophen Extra Strength 2 Tablet (of 500 mg) Oral b.i.d., Calcium 1 Tablet (of 500 mg) Oral daily, Hydroxychloroquine Sulfate 1 Tablet (of 200 mg) Oral b.i.d., Lutein 1 Tablet (of 20 mg) Oral daily, st. davis wort 1 Capsule Oral daily, Vitamin B12 1 Tablet Oral daily Allergies: medical tape Review of Systems: Review of Systems is not available for this patient. Vital Signs: Performed on Nov 06, 2020 13:24 Height - 70.00 in Weight - 190.6 lbs (HIGH) BSA - 2.05 sq.m BMI - 27.35 Temperature - 97.6 F (LOW) Pulse - 82 /min Respiration - 18 /min BP - 140/77 mm(hg) O2 Sat - 97 % Pain - 0 Performance Status: 0 - Fully active, able to carry on all predisease activities without restrictions. (ECOG) Physical Examination: ENMT - No mouth sores, no thrush, no jaundice, Respiratory - Lungs are clear to auscultation, Cardiovascular - Regular rate and rhythm of heart, Abdomen - Soft, bowel sounds present, Extremities - No visible edema. Lab/Imaging: Most recent lab results are not available for this patient. Impression: Adenocarcinoma prostate status post robotic-assisted laparoscopic radical prostatectomy done on 04/05/2018 final pathology report showed pT3, tumor invades the right seminal vesicle, with positive surgical margins, pNx no lymph nodes submitted, stage pT3,pNx,pMx Intermediate risk Now with progressive PSA level. Initially patient tried alternative therapy but finally started on ADT with Zoladex and Casodex on 08/25/2019 and concurrent with radiation therapy which he completed on 10/19/2019, At patient's request Zoladex was discontinued after dose given on January 30, 2020 And decided to observe with PSA Plan: Discussed with patient regarding his labs PSA 0.006 compared to 0.006 on April 03, 2020 Clinically, patient is doing well with no new signs symptoms suggestive of recurrence of disease, his PSA is subzero and stable we will continue to monitor return to clinic in 4 months with CMP and PSA Signed By: Saturnino Quintero M.D. <<Signature on File>>
== END 2020-11-06 11:19 | disposition home or self-care (01) ==
LOC: ONCMED 11:24
PROVIDERS: PCP Family Medicine; Visit Provider Internal Medicine Hematology & Oncology
DX: C61 Malignant neoplasm of prostate (principal); Z90.79 Acquired absence of other genital organ(s); Z92.3 Personal history of irradiation; Z92.23 Personal history of estrogen therapy
CPT/HCPCS: 36415; 84153; G0463

== ENCOUNTER → 2021-01-31 09:48 | Outpatient (BNVA) | payer OTHER, MEDICARE, SELFPAY | PROVIDERS: PCP Family Medicine; Visit Provider Internal Medicine Rheumatology | DX: M19.90 Unspecified osteoarthritis, unspecified site (principal); Z79.899 Other long term (current) drug therapy | CPT/HCPCS: 36415; 80076; 82565; 85025 ==

== ENCOUNTER → 2021-02-05 14:32 | Outpatient (BNVA) | payer OTHER, MEDICARE, SELFPAY | PROVIDERS: PCP Family Medicine; Visit Provider Internal Medicine Rheumatology | DX: M06.041 Rheumatoid arthritis without rheumatoid factor, right hand (principal); M06.042 Rheumatoid arthritis without rheumatoid factor, left hand; M15.9 Polyosteoarthritis, unspecified; Z79.899 Other long term (current) drug therapy; M75.01 Adhesive capsulitis of right shoulder; M75.02 Adhesive capsulitis of left shoulder; G89.29 Other chronic pain; M54.5 Low back pain; Z87.891 Personal history of nicotine dependence | CPT/HCPCS: 99214 ==

== ENCOUNTER → 2021-03-14 08:42 | Outpatient (BNVA) | payer OTHER, MEDICARE, SELFPAY | PROVIDERS: PCP Family Medicine; Visit Provider Internal Medicine Rheumatology | DX: M19.90 Unspecified osteoarthritis, unspecified site (principal); Z79.899 Other long term (current) drug therapy | CPT/HCPCS: 36415; 80076; 82565; 85025; 86140 ==

== ENCOUNTER 2021-04-04 08:53 | Outpatient (CLI) | payer OTHER, MEDICARE, SELFPAY ==
[2021-04-04 10:11] LABS: Prostate Specific Antigen 0.337 ng/mL (0-4)
[2021-04-04 10:22] LABS: Alanine Aminotransferase 11 U/L (0-41); Albumin Level 4.2 g/dL (3.5-5.2); Alkaline Phosphatase 93 IU/L (40-130); Anion Gap 15.3 (5-19); Aspartate Amino Transferase 18 U/L (0-40); Blood Urea Nitrogen 22 mg/dL (8-23); Calcium 9.1 mg/dL (8.5-10.5); Carbon Dioxide 23 mmol/L (22-29); Chloride 103 mmol/L (98-107); Globulin 1.7 g/dL (1.3-4.6); Glucose 104 mg/dL (65-115); Osmolality Calculated 288 mOsm/kg (285-295); Potassium 4.3 mmol/L (3.5-5.1); Sodium 137 mmol/L (136-145); Total Protein 5.9 g/dL (6.6-8.7)
--- NOTE | 2021-04-04 16:13 | ONC FU_ITS ---
Dr. Quintero follow up note Patient: Gabriele Sommers Unit #: [id number]: 1940 Dicatated By: Saturnino Quintero M.D.Date of Visit:Apr 04, 2021 Onc Med Follow-up/Prog Note History of Present Illness: Mr. 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 There is also focal involvement of periprostatic soft tissue margin in the posterior aspect of the left peripheral zone. Adenocarcinoma also extends to within 1 mm of apical margin bilaterally, lymphovascular invasion seen along the perineural invasion. And now lymph nodes were identified. Post operatively patient developed persistent leakage And no return of erectile function During follow-up with his urologist on 08/19/2018 his PSA gone up to 0.11 compared to 0 .04 on previous visit, As per patient, at that point role of radiation therapy was discussed. But patient declined, patient also declined hormonal therapy rather wants to try herbal therapy e.g. black 'sev', knowing the risks involved this plan. Patient was referred to radiation oncology for evaluation, he was seen by Dr. Oconnor on 09/30/2018, salvage radiation was recommended but patient declined that too.was observed with PSA while on Alternative therapy with [place] herbs Finally patient agreed to see radiation oncology on 08/18/2019 because of progressive PSA and agreed to take Casodex in addition to Zoladex. Patient was started on radiation therapy to prostate bed last week and he has completed one month of Casodex.Completed radiation therapy on 10/19/2019 Patient continue with Zoladex still January 30, 2020, he was supposed to come back for 3 monthly dose in April 2020 but patient and his decided not to take anymore because of related side effects e.g. hot flashes. Bone scan done on July 05, 2020 shows no evidence of bone metsAnd his PSA on July 05, 2020 was less than 0.006 Came for follow-up, denies any specific complaints, no fever chills, no nausea or vomiting, no diarrhea or constipation, no hematuria or dysuria, no new bony pains, appetite is good Medications: Acetaminophen Extra Strength 2 Tablet (of 500 mg) Oral b.i.d., Calcium 1 Tablet (of 500 mg) Oral daily, Hydroxychloroquine Sulfate 1 Tablet (of 200 mg) Oral b.i.d., Lutein 1 Tablet (of 20 mg) Oral daily, st. davis wort 1 Capsule Oral daily, Vitamin B12 1 Tablet Oral daily Allergies: medical tape Review of Systems: Review of Systems is not available for this patient. Vital Signs: Performed on Apr 04, 2021 11:17 Height - 70.00 in Weight - 182 lbs (LOW) BSA - 2.01 sq.m BMI - 26.11 Temperature - 98.0 F (LOW) Pulse - 61 /min Respiration - 18 /min BP - 125/81 mm(hg) O2 Sat - 96 % Pain - 0 Fatigue - 6 Performance Status: 0 - Fully active, able to carry on all predisease activities without restrictions. (ECOG) Physical Examination: ENMT - No mouth sores, no thrush, no jaundice, Respiratory - Lungs are clear to auscultation, Cardiovascular - Regular rate and rhythm of heart, Abdomen - Soft, bowel sounds present, Extremities - No visible edema. Lab/Imaging: Test performed on Nov 06, 2020 11:50 PSA 0.006 ng/mL Impression: Adenocarcinoma prostate status post robotic-assisted laparoscopic radical prostatectomy done on 04/05/2018 final pathology report showed pT3, tumor invades the right seminal vesicle, with positive surgical margins, pNx no lymph nodes submitted, stage pT3,pNx,pMx Intermediate risk Now with progressive PSA level. Initially patient tried alternative therapy but finally started on ADT with Zoladex and Casodex on 08/25/2019 and concurrent with radiation therapy which he completed on 10/19/2019, At patient's request Zoladex was discontinued after dose given on January 30, 2020 And decided to observe with PSA Plan: Discussed with patient regarding his labs CMP within normal limits PSA 0.337 compared to 0.006 previously Clinically, patient doing well with no new signs symptom suggestive of recurrence of disease but his PSA has gone up to 0.337 compared to 0.006 previously, , At this point will consider repeating his PSA and testosterone in 1 month if PSA continues to go up, will monitor him more closely and may consider further evaluation with scans, if there is a progressive trend and short doubling time Signed By: Saturnino Quintero M.D. <<Signature on File>>
== END 2021-04-04 08:54 | disposition home or self-care (01) ==
LOC: ONCMED 08:55
PROVIDERS: PCP Family Medicine; Visit Provider Internal Medicine Hematology & Oncology
DX: Z08 Encounter for follow-up examination after completed treatment for malignant neoplasm (principal); Z85.46 Personal history of malignant neoplasm of prostate; R97.20 Elevated prostate specific antigen [PSA]; Z79.899 Other long term (current) drug therapy; Z92.21 Personal history of antineoplastic chemotherapy
CPT/HCPCS: 36415; 80053; 84153; 99214

== ENCOUNTER → 2021-05-02 12:45 | Outpatient (BNVA) | payer OTHER, MEDICARE, SELFPAY | PROVIDERS: PCP Family Medicine; Visit Provider Internal Medicine Rheumatology | DX: M06.041 Rheumatoid arthritis without rheumatoid factor, right hand (principal); M06.042 Rheumatoid arthritis without rheumatoid factor, left hand; M15.9 Polyosteoarthritis, unspecified; M75.02 Adhesive capsulitis of left shoulder; M54.5 Low back pain; G89.29 Other chronic pain; Z79.899 Other long term (current) drug therapy; Z85.46 Personal history of malignant neoplasm of prostate; Z92.3 Personal history of irradiation; Z90.79 Acquired absence of other genital organ(s); Z71.89 Other specified counseling; Z87.891 Personal history of nicotine dependence | CPT/HCPCS: 99214 ==

== ENCOUNTER 2021-05-07 14:19 | Outpatient (CLI) | payer OTHER, MEDICARE, SELFPAY ==
[2021-05-07 16:06] LABS: Prostate Specific Antigen 0.595 ng/mL (0-4); Testosterone Total 353.7 ng/dL (193-740)
--- NOTE | 2021-05-07 16:44 | ONC FU_ITS ---
Dr. Quintero follow up note Patient: Gabriele Sommers Unit #: [id number]: 1940 Dicatated By: Saturnino Quintero M.D.Date of Visit:May 07, 2021 Onc Med Follow-up/Prog Note History of Present Illness: Mr. 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 There is also focal involvement of periprostatic soft tissue margin in the posterior aspect of the left peripheral zone. Adenocarcinoma also extends to within 1 mm of apical margin bilaterally, lymphovascular invasion seen along the perineural invasion. And now lymph nodes were identified. Post operatively patient developed persistent leakage And no return of erectile function During follow-up with his urologist on 08/19/2018 his PSA gone up to 0.11 compared to 0 .04 on previous visit, As per patient, at that point role of radiation therapy was discussed. But patient declined, patient also declined hormonal therapy rather wants to try herbal therapy e.g. black 'sev', knowing the risks involved this plan. Patient was referred to radiation oncology for evaluation, he was seen by Dr. Oconnor on 09/30/2018, salvage radiation was recommended but patient declined that too.was observed with PSA while on Alternative therapy with [place] herbs Finally patient agreed to see radiation oncology on 08/18/2019 because of progressive PSA and agreed to take Casodex in addition to Zoladex. Patient was started on radiation therapy to prostate bed last week and he has completed one month of Casodex.Completed radiation therapy on 10/19/2019 Patient continue with Zoladex still January 30, 2020, he was supposed to come back for 3 monthly dose in April 2020 but patient and his decided not to take anymore because of related side effects e.g. hot flashes. Bone scan done on July 05, 2020 shows no evidence of bone metsAnd his PSA on July 05, 2020 was less than 0.006 Came for follow-up, denies any specific complaints, no fever chills, no nausea or vomiting, no diarrhea or constipation, no new bony pains, patient denies any [id number] male hormone supplement Medications: Acetaminophen Extra Strength 2 Tablet (of 500 mg) Oral b.i.d., Calcium 1 Tablet (of 500 mg) Oral daily, Hydroxychloroquine Sulfate 1 Tablet (of 200 mg) Oral b.i.d., Lutein 1 Tablet (of 20 mg) Oral daily, st. davis wort 1 Capsule Oral daily, Vitamin B12 1 Tablet Oral daily Allergies: medical tape Review of Systems: Review of Systems is not available for this patient. Vital Signs: Performed on May 07, 2021 16:20 Height - 70.00 in Weight - 183.8 lbs (HIGH) BSA - 2.01 sq.m BMI - 26.37 Temperature - 98.4 F Pulse - 74 /min Respiration - 18 /min BP - 116/72 mm(hg) O2 Sat - 96 % Pain - 0 Fatigue - 0 Performance Status: 0 - Fully active, able to carry on all predisease activities without restrictions. (ECOG) Physical Examination: ENMT - No mouth sores, no thrush, no jaundice, Respiratory - Lungs are clear to auscultation, Cardiovascular - Regular rate and rhythm of heart, Abdomen - Soft, bowel sounds present, Extremities - No visible edema. Lab/Imaging: Most recent lab results are not available for this patient. Impression: Adenocarcinoma prostate status post robotic-assisted laparoscopic radical prostatectomy done on 04/05/2018 final pathology report showed pT3, tumor invades the right seminal vesicle, with positive surgical margins, pNx no lymph nodes submitted, stage pT3,pNx,pMx Intermediate risk Now with progressive PSA level. Initially patient tried alternative therapy but finally started on ADT with Zoladex and Casodex on 08/25/2019 and concurrent with radiation therapy which he completed on 10/19/2019, At patient's request Zoladex was discontinued after dose given on January 30, 2020 And decided to observe with PSA Plan: Discussed with patient regarding his labs, his PSA has gone up to 0.595 compared to 0.337 on April 04, 2021, testosterone 353.7 Clinically, patient doing well with no new signs symptom suggestive of recurrence of disease but his PSA continues to go up but still subzero. At this point we will continue monitor PSA closely and may consider choline PET scan to identify lesion if amenable to SBRT, She will return to clinic in 1 month with PSA Signed By: Saturnino Quintero M.D. <<Signature on File>>
== END 2021-05-07 14:20 | disposition home or self-care (01) ==
LOC: ONCMED 14:22
PROVIDERS: PCP Family Medicine; Visit Provider Internal Medicine Hematology & Oncology
DX: Z08 Encounter for follow-up examination after completed treatment for malignant neoplasm (principal); Z85.46 Personal history of malignant neoplasm of prostate; R97.20 Elevated prostate specific antigen [PSA]; Z79.899 Other long term (current) drug therapy; Z92.21 Personal history of antineoplastic chemotherapy
CPT/HCPCS: 36415; 84153; 84403; 99214

== ENCOUNTER → 2021-05-27 09:09 | Outpatient (BNVA) | payer OTHER, MEDICARE, SELFPAY | PROVIDERS: PCP Family Medicine; Visit Provider Internal Medicine Rheumatology | DX: Z71.89 Other specified counseling (principal); M15.9 Polyosteoarthritis, unspecified; M06.041 Rheumatoid arthritis without rheumatoid factor, right hand; M06.042 Rheumatoid arthritis without rheumatoid factor, left hand; Z79.899 Other long term (current) drug therapy; M25.541 Pain in joints of right hand; M25.542 Pain in joints of left hand | CPT/HCPCS: 36415 ==

== ENCOUNTER 2021-05-27 10:27 | Outpatient (CLI) | payer OTHER, MEDICARE, SELFPAY | END 2021-05-27 10:28 | disposition home or self-care (01) | PROVIDERS: PCP Family Medicine; Visit Provider Internal Medicine Rheumatology | DX: Z71.89 Other specified counseling (principal); M15.9 Polyosteoarthritis, unspecified; M06.041 Rheumatoid arthritis without rheumatoid factor, right hand; M06.042 Rheumatoid arthritis without rheumatoid factor, left hand; Z79.899 Other long term (current) drug therapy | CPT/HCPCS: 36415; 85025 ==

== ENCOUNTER 2021-07-19 09:55 | Outpatient (CLI) | payer OTHER, SELFPAY | END 2021-07-19 09:56 | disposition home or self-care (01) | LOC: ONCMED 09:57 | PROVIDERS: PCP Family Medicine; Visit Provider Internal Medicine Hematology & Oncology | DX: Z85.46 Personal history of malignant neoplasm of prostate (principal) | CPT/HCPCS: 36415; 84153 ==

== ENCOUNTER 2021-07-22 06:36 | Outpatient (CLI) | payer OTHER, SELFPAY ==
--- NOTE | 2021-07-29 10:29 | ONC FU_ITS ---
Dr. Quintero follow up note Patient: Gabriele Sommers Unit #: [id number]: 1940 Dicatated By: Saturnino Quintero M.D.Date of Visit:Jul 22, 2021 Onc Med Follow-up/Prog Note History of Present Illness: Mr. 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 There is also focal involvement of periprostatic soft tissue margin in the posterior aspect of the left peripheral zone. Adenocarcinoma also extends to within 1 mm of apical margin bilaterally, lymphovascular invasion seen along the perineural invasion. And now lymph nodes were identified. Post operatively patient developed persistent leakage And no return of erectile function During follow-up with his urologist on 08/19/2018 his PSA gone up to 0.11 compared to 0 .04 on previous visit, As per patient, at that point role of radiation therapy was discussed. But patient declined, patient also declined hormonal therapy rather wants to try herbal therapy e.g. black 'sev', knowing the risks involved this plan. Patient was referred to radiation oncology for evaluation, he was seen by Dr. Oconnor on 09/30/2018, salvage radiation was recommended but patient declined that too.was observed with PSA while on Alternative therapy with [place] herbs Finally patient agreed to see radiation oncology on 08/18/2019 because of progressive PSA and agreed to take Casodex in addition to Zoladex. Patient was started on radiation therapy to prostate bed last week and he has completed one month of Casodex.Completed radiation therapy on 10/19/2019 Patient continue with Zoladex still January 30, 2020, he was supposed to come back for 3 monthly dose in April 2020 but patient and his decided not to take anymore because of related side effects e.g. hot flashes. Bone scan done on July 05, 2020 shows no evidence of bone metsAnd his PSA on July 05, 2020 was less than 0.006 Came for follow-up, complaining of left hip/thigh pain of 2 weeks duration, sometimes is positional. Also complaining of lower back pain but no urine or stool incontinence, no trauma to his back, no trauma to his left hip, no fever chills, no dysuria or hematuria, no diarrhea or constipation Medications: Acetaminophen Extra Strength 2 Tablet (of 500 mg) Oral b.i.d., Calcium 1 Tablet (of 500 mg) Oral daily, Hydroxychloroquine Sulfate 1 Tablet (of 200 mg) Oral b.i.d., Lutein 1 Tablet (of 20 mg) Oral daily, st. davis wort 1 Capsule Oral daily, Vitamin B12 1 Tablet Oral daily Allergies: medical tape Review of Systems: Review of Systems is not available for this patient. Vital Signs: Performed on Jul 22, 2021 16:00 Height - 70.00 in Weight - 183.8 lbs BSA - 2.01 sq.m BMI - 26.37 Temperature - 98.2 F (LOW) Pulse - 67 /min Respiration - 18 /min BP - 145/83 mm(hg) (HIGH) O2 Sat - 96 % Pain - 2 Fatigue - 0 Performance Status: 1 - No physically strenuous activity, but ambulatory and able to carry out light or sedentary work (e.g. office work, light house work). (ECOG) Physical Examination: ENMT - No mouth sores, no thrush, no jaundice, Respiratory - Lungs are clear to auscultation, Cardiovascular - Regular rate and rhythm of heart, Abdomen - Soft, bowel sounds present, Extremities - No visible edema, no focal weakness. Lab/Imaging: Most recent lab results are not available for this patient. Impression: Adenocarcinoma prostate status post robotic-assisted laparoscopic radical prostatectomy done on 04/05/2018 final pathology report showed pT3, tumor invades the right seminal vesicle, with positive surgical margins, pNx no lymph nodes submitted, stage pT3,pNx,pMx Intermediate risk Now with progressive PSA level. Initially patient tried alternative therapy but finally started on ADT with Zoladex and Casodex on 08/25/2019 and concurrent with radiation therapy which he completed on 10/19/2019, At patient's request Zoladex was discontinued after dose given on January 30, 2020 And decided to observe with PSA Plan: Discussed with patient regarding his labs PSA is 2.09 compared to 0.595 on May 07, 2021 Clinically, patient is doing reasonably well but now with new signs symptoms like lower back pain/left hip/thigh pain of 2 weeks duration, denies any trauma, etiology of his pain could be musculoskeletal like disc bulging or severe arthritis but now with progressive PSA metastatic disease cannot be ruled out, will consider MRI scan of the lumbar spine/left hip and then he will return to clinic after scans for further discussion, as far as progressive PSA is concerned, will repeat his PSA in a month, if it shows progression will consider the PSMA scan to detect early metastatic disease Signed By: Saturnino Quintero M.D. <<Signature on File>>
== END 2021-07-22 06:37 | disposition home or self-care (01) ==
LOC: ONCMED 06:37
PROVIDERS: PCP Family Medicine; Visit Provider Internal Medicine Hematology & Oncology
DX: C61 Malignant neoplasm of prostate (principal); R97.20 Elevated prostate specific antigen [PSA]; Z79.818 Long term (current) use of other agents affecting estrogen receptors and estrogen levels
CPT/HCPCS: 99214

== ENCOUNTER 2021-07-24 13:48 | Outpatient (CLI) | payer OTHER, SELFPAY ==
--- NOTE | 2021-07-24 14:59 | MR_ITS ---
WS: [id number] MRI LUMBAR SPINE WITH CONTRAST TECHNIQUE: Sagittal T1, T2 and STIR imaging. Axial T1 and T2 imaging. Post gadolinium imaging was obt ained. CLINICAL INFORMATION: LEFT HIP AND THIGH PAIN X 2 WEEKS/ HX OF PROSTATE CANCER COMPARISON: None. FINDINGS: Mild lumbar curve. No acute compression. Disc bulging worse at L2-3 and L3-4. Moderate to severe cent ral canal stenosis L2-3 with a left pericentral protrusion. Moderate central canal stenosis L3-4. Numerous osseous lesions throughout the visualized bony structures with heterogeneous bone marrow sig nal. No suspicious enhancing lesions. 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 Mult iple incidental hemangiomas. L1-L2: Normal. L2-L3: Disc bulging with a left subarticular disc protrusion. Moderate to severe central canal stenos is with impingement on the left subarticular recess. Moderate facet arthropathy. Mild left foraminal narrowing. L3-L4: Mild annular bulging. Impingement subarticular recess bilaterally. Moderate central canal sten osis. Mild to moderate right L3-4 foraminal narrowing. Mild facet arthropathy. L4-L5: Mild annular bulging with mild central canal stenosis. Impingement traversing L5 nerve roots b ilaterally. Moderate facet arthropathy. Foramen are patent. L5-S1: Small central disc osteophyte protrusion with mild facet arthropathy. Mild bilateral foraminal narrowing. Bilateral renal cysts. Cortical lobulation and scarring both kidneys. Numerous incidental hemangiomas in the cervical and thoracic spine. MR/MR lumbar spine wo/w con [id number] IMPRESSION: 1. Mild lumbar curve. No acute compression. 2. Moderate to severe central canal stenosis L2-3 with impingement on the left subarticular recess and crowding of the cauda equina nerve rootlets. Impingeme nt traversing left L3 nerve root. 3. Moderate central canal stenosis L3-4. 4. Small left foraminal protrusion L2-3 with mild to moderate left foraminal n arrowing. 5. Mild to moderate right L3-4 foraminal narrowing. 6. Annular bulging L4-5 with impingement traversing L5 nerve roots bilaterally . 7. Diffuse heterogeneous bone marrow signal throughout the visualized bony str uctures. No suspicious enhancing lesions.Findings likely due to treated osseous metastatic disease. Multiple additional incidental hemangiomas. If suspicion f or active disease, bone scan could be obtained.
[2021-07-24 15:25] LABS: Anion Gap 14.2 (5-19); Blood Urea Nitrogen 23 mg/dL (8-23); Calcium 8.8 mg/dL (8.5-10.5); Carbon Dioxide 25 mmol/L (22-29); Chloride 102 mmol/L (98-107); Glucose 133 mg/dL (65-115); Osmolality Calculated 290 mOsm/kg (285-295); Potassium 4.2 mmol/L (3.5-5.1); Sodium 137 mmol/L (136-145)
[2021-07-24] MEDS: gadobenate dimeglumine 20 mL vial IV (15:37)
== END 2021-07-24 13:49 | disposition home or self-care (01) ==
PROVIDERS: PCP Family Medicine; Visit Provider Internal Medicine Hematology & Oncology
DX: C61 Malignant neoplasm of prostate (principal); M51.36 Other intervertebral disc degeneration, lumbar region; M48.061 Spinal stenosis, lumbar region without neurogenic claudication; M51.26 Other intervertebral disc displacement, lumbar region
CPT/HCPCS: 36415; 72158; 80048; A9577

== ENCOUNTER 2021-07-25 13:43 | Outpatient (CLI) | payer OTHER, SELFPAY ==
--- NOTE | 2021-07-25 13:50 | MR_ITS ---
WS: [id number] MRI LEFT HIP with and without CONTRAST. COMPARISON: None Multiplanar, multisequence imaging is performed with and without contrast. Sagittal and axial T1 fat sat sequences post-MultiHance 20 cc IV. No acute marrow edema or fracture. No marrow replacement process or asymmetry between the hips. There is a very small amount of increased signal in the gluteus tendons adjacent to the greater trochanter s but this is symmetric and very minimal with no fluid. SI joints are symmetric bilaterally with no e rosion or edema. There is a very small amount of increased T2 signal in the anterior labrum of the LE FT hip. This is asymmetric to the RIGHT. No muscle atrophy or edema. MR/MR hip LT wo/w con [id number] IMPRESSION: 1. No fracture or marrow edema. 2. No metastatic disease or enhancing lesion within the bones. 3. Simple linear tear in the anterior LEFT labrum.
== END 2021-07-25 13:44 | disposition home or self-care (01) ==
LOC: RADSHAW 13:47
PROVIDERS: PCP Family Medicine; Visit Provider Internal Medicine Hematology & Oncology
DX: M25.552 Pain in left hip (principal); S73.192A Other sprain of left hip, initial encounter; X58.XXXA Exposure to other specified factors, initial encounter
CPT/HCPCS: 73723; A9579

== ENCOUNTER 2021-07-26 06:38 | Outpatient (CLI) | payer OTHER, SELFPAY ==
--- NOTE | 2021-07-29 08:57 | ONC FU_ITS ---
Dr. Quintero follow up note Patient: Gabriele Sommers Unit #: [id number]: [id number] Dicatated By: Saturnino Quintero M.D.Date of Visit:Jul 26, 2021 Onc Med Follow-up/Prog Note History of Present Illness: Mr. 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 There is also focal involvement of periprostatic soft tissue margin in the posterior aspect of the left peripheral zone. Adenocarcinoma also extends to within 1 mm of apical margin bilaterally, lymphovascular invasion seen along the perineural invasion. And now lymph nodes were identified. Post operatively patient developed persistent leakage And no return of erectile function During follow-up with his urologist on 08/19/2018 his PSA gone up to 0.11 compared to 0 .04 on previous visit, As per patient, at that point role of radiation therapy was discussed. But patient declined, patient also declined hormonal therapy rather wants to try herbal therapy e.g. black 'sev', knowing the risks involved this plan. Patient was referred to radiation oncology for evaluation, he was seen by Dr. Oconnor on 09/30/2018, salvage radiation was recommended but patient declined that too.was observed with PSA while on Alternative therapy with [place] herbs Finally patient agreed to see radiation oncology on 08/18/2019 because of progressive PSA and agreed to take Casodex in addition to Zoladex. Patient was started on radiation therapy to prostate bed last week and he has completed one month of Casodex.Completed radiation therapy on 10/19/2019 Patient continue with Zoladex still January 30, 2020, he was supposed to come back for 3 monthly dose in April 2020 but patient and his decided not to take anymore because of related side effects e.g. hot flashes. Bone scan done on July 05, 2020 shows no evidence of bone metsAnd his PSA on July 05, 2020 was less than 0.006 MRI scan of lumbar spine and left hip done for lower back pain/left hip pain on July 24, 2021 showed multilevel disc protrusion with impingement on the left subarticular recess at L2-L3, and impingement traversing L5 nerve roots bilaterally, no metastatic disease Left hip MRI scan shows simple linear tear in the anterior left labrum and no evidence of metastatic disease Came for follow-up, still complaining of pain in the lower back and left hip but under control with current pain medication denies any fever chills rigors nausea or vomiting denies any lower extremity numbness denies any urine or stool incontinence, denies any dysuria or hematuria Medications: Acetaminophen Extra Strength 2 Tablet (of 500 mg) Oral b.i.d., Calcium 1 Tablet (of 500 mg) Oral daily, Hydroxychloroquine Sulfate 1 Tablet (of 200 mg) Oral b.i.d., Lutein 1 Tablet (of 20 mg) Oral daily, st. davis wort 1 Capsule Oral daily, Vitamin B12 1 Tablet Oral daily Allergies: medical tape Review of Systems: Review of Systems is not available for this patient. Vital Signs: Performed on Jul 26, 2021 11:51 Height - 70.00 in Weight - 185.4 lbs (HIGH) BSA - 2.02 sq.m BMI - 26.60 Temperature - 97.8 F (LOW) Pulse - 96 /min Respiration - 18 /min BP - 144/83 mm(hg) (HIGH) O2 Sat - 98 % Pain - 6 Fatigue - 0 Performance Status: 1 - No physically strenuous activity, but ambulatory and able to carry out light or sedentary work (e.g. office work, light house work). (ECOG) Physical Examination: ENMT - No mouth sores, no thrush, no jaundice, Respiratory - Lungs are clear to auscultation, Cardiovascular - Regular rate and rhythm of heart, Abdomen - Soft, bowel sounds present, Extremities - No visible edema. Lab/Imaging: Most recent lab results are not available for this patient. Impression: Adenocarcinoma prostate status post robotic-assisted laparoscopic radical prostatectomy done on 04/05/2018 final pathology report showed pT3, tumor invades the right seminal vesicle, with positive surgical margins, pNx no lymph nodes submitted, stage pT3,pNx,pMx Intermediate risk Now with progressive PSA level. Initially patient tried alternative therapy but finally started on ADT with Zoladex and Casodex on 08/25/2019 and concurrent with radiation therapy which he completed on 10/19/2019, At patient's request Zoladex was discontinued after dose given on January 30, 2020 And decided to observe with PSA Plan: Discussed with patient regarding his MRI scan of the lumbar spine and left hip findings which confirmed multilevel disc protrusion causing impingement which may be causing lower back pain and radiation to the left leg and his left hip pain could be due to linear tear seen in the anterior labrum but there is no evidence of metastatic disease. So at this point we will refer him to orthopedics for evaluation and patient will return to clinic in 1 month with a PSA, if PSA continues to go up, will consider further investigations with PSMA may scan to detect early metastatic disease. Signed By: Saturnino Quintero M.D. <<Signature on File>>
== END 2021-07-26 06:39 | disposition home or self-care (01) ==
LOC: ONCMED 06:38
PROVIDERS: PCP Family Medicine; Visit Provider Internal Medicine Hematology & Oncology
DX: C61 Malignant neoplasm of prostate (principal); R97.20 Elevated prostate specific antigen [PSA]; Z90.79 Acquired absence of other genital organ(s); Z79.818 Long term (current) use of other agents affecting estrogen receptors and estrogen levels; Z92.21 Personal history of antineoplastic chemotherapy
CPT/HCPCS: 99214

== ENCOUNTER → 2021-08-08 09:25 | Outpatient (BNVA) | payer OTHER, SELFPAY | PROVIDERS: PCP Family Medicine; Referring Provider Internal Medicine Hematology & Oncology; Visit Provider Orthopaedic Surgery | DX: M15.9 Polyosteoarthritis, unspecified (principal); M54.50 Low back pain, unspecified; M06.041 Rheumatoid arthritis without rheumatoid factor, right hand; M06.042 Rheumatoid arthritis without rheumatoid factor, left hand; M75.02 Adhesive capsulitis of left shoulder; Z79.899 Other long term (current) drug therapy; G89.29 Other chronic pain; Z71.89 Other specified counseling; Z87.891 Personal history of nicotine dependence; M25.552 Pain in left hip | CPT/HCPCS: 72110; 73502; 99214 ==

== ENCOUNTER 2021-10-03 09:27 | Outpatient (CLI) | payer OTHER, SELFPAY ==
--- NOTE | 2021-10-03 16:02 | ONC FU_ITS ---
Dr. Quintero follow up note Patient: Gabriele Sommers Unit #: [id number]: 1940 Dicatated By: Saturnino Quintero M.D.Date of Visit:Oct 03, 2021 Onc Med Follow-up/Prog Note History of Present Illness: Mr. 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 There is also focal involvement of periprostatic soft tissue margin in the posterior aspect of the left peripheral zone. Adenocarcinoma also extends to within 1 mm of apical margin bilaterally, lymphovascular invasion seen along the perineural invasion. And now lymph nodes were identified. Post operatively patient developed persistent leakage And no return of erectile function During follow-up with his urologist on 08/19/2018 his PSA gone up to 0.11 compared to 0 .04 on previous visit, As per patient, at that point role of radiation therapy was discussed. But patient declined, patient also declined hormonal therapy rather wants to try herbal therapy e.g. black 'sev', knowing the risks involved this plan. Patient was referred to radiation oncology for evaluation, he was seen by Dr. Oconnor on 09/30/2018, salvage radiation was recommended but patient declined that too.was observed with PSA while on Alternative therapy with [place] herbs Finally patient agreed to see radiation oncology on 08/18/2019 because of progressive PSA and agreed to take Casodex in addition to Zoladex. Patient was started on radiation therapy to prostate bed last week and he has completed one month of Casodex.Completed radiation therapy on 10/19/2019 Patient continue with Zoladex still January 30, 2020, he was supposed to come back for 3 monthly dose in April 2020 but patient and his decided not to take anymore because of related side effects e.g. hot flashes. Bone scan done on July 05, 2020 shows no evidence of bone metsAnd his PSA on July 05, 2020 was less than 0.006 MRI scan of lumbar spine and left hip done for lower back pain/left hip pain on July 24, 2021 showed multilevel disc protrusion with impingement on the left subarticular recess at L2-L3, and impingement traversing L5 nerve roots bilaterally, no metastatic disease Left hip MRI scan shows simple linear tear in the anterior left labrum and no evidence of metastatic disease Because of progressive PSA level ,PSMA scan done on September 02, 2021 at [place] shows PSMA avid nodules within the left retzius space, 1 of which has moderate intensity. Atypical site for prostate spread this is equivocal for recurrent prostate cancer. Moderate PSMA activity within the right posterior occipital bone suspicious for metastatic disease but not definitive, MRI recommended Mildly PSMA avid right upper quadrant mesenteric nodule is also equivocal given the relatively low level uptake and atypical location. Mild tracer activity within prostatectomy resection bed along the pelvic peritoneal reflections equivocal but favored to represent postsurgical changes enlarged heterogeneous left thyroid, recommend sonogram Came for follow-up, denies any specific complaints, no fever chills, no nausea vomiting, no diarrhea constipation, no melena hematochezia, no hemoptysis or hematemesis, no new bony pains, patient had PSMA scan done recently, here to discuss the results and further planning Medications: Acetaminophen Extra Strength 2 Tablet (of 500 mg) Oral b.i.d., Calcium 1 Tablet (of 500 mg) Oral daily, Hydroxychloroquine Sulfate 1 Tablet (of 200 mg) Oral b.i.d., Lutein 1 Tablet (of 20 mg) Oral daily, st. davis wort 1 Capsule Oral daily, Vitamin B12 1 Tablet Oral daily Allergies: medical tape Review of Systems: Review of Systems is not available for this patient. Vital Signs: Performed on Oct 03, 2021 11:38 Height - 70.00 in Weight - 185.2 lbs (LOW) BSA - 2.02 sq.m BMI - 26.57 Temperature - 97.1 F (LOW) Pulse - 58 /min (LOW) Respiration - 18 /min BP - 145/78 mm(hg) (HIGH) O2 Sat - 98 % Pain - 0 Fatigue - 6 Performance Status: 0 - Fully active, able to carry on all predisease activities without restrictions. (ECOG) Physical Examination: ENMT - No mouth sores, no thrush, no jaundice, Respiratory - Lungs are clear to auscultation, Cardiovascular - Regular rate and rhythm of heart, Abdomen - Soft, bowel sounds present, Extremities - No visible edema. Lab/Imaging: Most recent lab results are not available for this patient. Impression: Adenocarcinoma prostate status post robotic-assisted laparoscopic radical prostatectomy done on 04/05/2018 final pathology report showed pT3, tumor invades the right seminal vesicle, with positive surgical margins, pNx no lymph nodes submitted, stage pT3,pNx,pMx Intermediate risk Now with progressive PSA level. Initially patient tried alternative therapy but finally started on ADT with Zoladex and Casodex on 08/25/2019 and concurrent with radiation therapy which he completed on 10/19/2019, At patient's request Zoladex was discontinued after dose given on January 30, 2020 And decided to observe with PSA Plan: Discussed with patient regarding his labs, PSA is 4.88 compared to 2.09 on July 19, 2021 and is 0.595 on May 02, 2021 and is 0.006 on November 06, 2020 Clinically, patient is doing well with no new signs symptoms suggestive of disease progression but his PSA continues to go up, for that he was referred to [place] for PSMA scan, which showed above-mentioned abnormal sites, as it shows multiple nodules in retzius space and patient has history of prostatectomy, it was suggested to to discuss with his urologist in [place] regarding if prostatectomy was performed via a retzius space approach, which can cause disease spread via seeding. So we will call his urologist in [place] who ordered robotic assisted prostatectomy. As far as abnormality seen in the posterior occipital area is concerned, as per patient his neurologist Dr. Glenys Marino, neurologist in [place] did MRI scan of the brain while being evaluated for Parkinson's and there was a lesion seen in the skull bone that time. So we will obtain the MRI scan of the brain report from his neurologist office and compare with PSMA scan, if his same lesion, will monitor if it is new lesion on PSMA scan, may consider biopsy. Patient was recommended ultrasound thyroid, patient will discuss with his PMD. He will return to clinic in 2 months with PSA. Signed By: Saturnino Quintero M.D. <<Signature on File>>
== END 2021-10-03 09:28 | disposition home or self-care (01) ==
LOC: ONCMED 09:29
PROVIDERS: PCP Family Medicine; Visit Provider Internal Medicine Hematology & Oncology
DX: C61 Malignant neoplasm of prostate (principal); R97.21 Rising PSA following treatment for malignant neoplasm of prostate; Z92.21 Personal history of antineoplastic chemotherapy; Z79.899 Other long term (current) drug therapy
CPT/HCPCS: 36415; 84153; 99214

== ENCOUNTER 2021-11-18 12:55 | Outpatient (CLI) | payer OTHER, SELFPAY ==
[2021-11-18 14:13] LABS: Alanine Aminotransferase < 5 U/L (0-41); Albumin Level 4.5 g/dL (3.5-5.2); Alkaline Phosphatase 90 IU/L (40-130); Anion Gap 14.1 (5-19); Aspartate Amino Transferase 20 U/L (0-40); Blood Urea Nitrogen 19 mg/dL (8-23); Calcium 8.7 mg/dL (8.5-10.5); Carbon Dioxide 24 mmol/L (22-29); Chloride 104 mmol/L (98-107); Globulin 1.7 g/dL (1.3-4.6); Glucose 84 mg/dL (65-115); Osmolality Calculated 287 mOsm/kg (285-295); Potassium 4.1 mmol/L (3.5-5.1); Sodium 138 mmol/L (136-145); Total Bilirubin 0.7 mg/dL (0.15-1.2); Total Protein 6.2 g/dL (6.6-8.7)
--- NOTE | 2021-11-18 16:49 | ONC FU_ITS ---
Dr. Quintero follow up note Patient: Gabriele Sommers Unit #: [id number]: 1940 Dicatated By: Saturnino Quintero M.D.Date of Visit:Nov 18, 2021 Onc Med Follow-up/Prog Note History of Present Illness: Mr. 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 There is also focal involvement of periprostatic soft tissue margin in the posterior aspect of the left peripheral zone. Adenocarcinoma also extends to within 1 mm of apical margin bilaterally, lymphovascular invasion seen along the perineural invasion. And now lymph nodes were identified. Post operatively patient developed persistent leakage And no return of erectile function During follow-up with his urologist on 08/19/2018 his PSA gone up to 0.11 compared to 0 .04 on previous visit, As per patient, at that point role of radiation therapy was discussed. But patient declined, patient also declined hormonal therapy rather wants to try herbal therapy e.g. black 'sev', knowing the risks involved this plan. Patient was referred to radiation oncology for evaluation, he was seen by Dr. Oconnor on 09/30/2018, salvage radiation was recommended but patient declined that too.was observed with PSA while on Alternative therapy with [place] herbs Finally patient agreed to see radiation oncology on 08/18/2019 because of progressive PSA and agreed to take Casodex in addition to Zoladex. Patient was started on radiation therapy to prostate bed last week and he has completed one month of Casodex.Completed radiation therapy on 10/19/2019 Patient continue with Zoladex still January 30, 2020, he was supposed to come back for 3 monthly dose in April 2020 but patient and his decided not to take anymore because of related side effects e.g. hot flashes. Bone scan done on July 05, 2020 shows no evidence of bone metsAnd his PSA on July 05, 2020 was less than 0.006 MRI scan of lumbar spine and left hip done for lower back pain/left hip pain on July 24, 2021 showed multilevel disc protrusion with impingement on the left subarticular recess at L2-L3, and impingement traversing L5 nerve roots bilaterally, no metastatic disease Left hip MRI scan shows simple linear tear in the anterior left labrum and no evidence of metastatic disease Because of progressive PSA level ,PSMA scan done on September 02, 2021 at [facility] shows PSMA avid nodules within the left retzius space, 1 of which has moderate intensity. Atypical site for prostate spread this is equivocal for recurrent prostate cancer. Moderate PSMA activity within the right posterior occipital bone suspicious for metastatic disease but not definitive, MRI recommended Mildly PSMA avid right upper quadrant mesenteric nodule is also equivocal given the relatively low level uptake and atypical location. Mild tracer activity within prostatectomy resection bed along the pelvic peritoneal reflections equivocal but favored to represent postsurgical changes enlarged heterogeneous left thyroid, recommend sonogram Came for follow-up, denies any specific complaints, no fever chills, no nausea or vomiting, no diarrhea or constipation, no hematuria or dysuria Medications: Acetaminophen Extra Strength 2 Tablet (of 500 mg) Oral b.i.d., Calcium 1 Tablet (of 500 mg) Oral daily, Hydroxychloroquine Sulfate 1 Tablet (of 200 mg) Oral b.i.d., Lutein 1 Tablet (of 20 mg) Oral daily, st. davis wort 1 Capsule Oral daily, Vitamin B12 1 Tablet Oral daily Allergies: medical tape Review of Systems: Review of Systems is not available for this patient. Vital Signs: Performed on Nov 18, 2021 15:57 Height - 70.00 in Weight - 180.8 lbs (LOW) BSA - 2.00 sq.m BMI - 25.94 Temperature - 97.2 F (LOW) Pulse - 64 /min Respiration - 16 /min BP - 155/79 mm(hg) (HIGH) O2 Sat - 99 % Pain - 0 Fatigue - 6 Performance Status: 0 - Fully active, able to carry on all predisease activities without restrictions. (ECOG) Physical Examination: ENMT - No mouth sores, no thrush, no jaundice, Respiratory - Lungs are clear to auscultation, Cardiovascular - Regular rate and rhythm of heart, Abdomen - Soft, bowel sounds present, Extremities - No visible edema. Lab/Imaging: Most recent lab results are not available for this patient. Impression: Adenocarcinoma prostate status post robotic-assisted laparoscopic radical prostatectomy done on 04/05/2018 final pathology report showed pT3, tumor invades the right seminal vesicle, with positive surgical margins, pNx no lymph nodes submitted, stage pT3,pNx,pMx Intermediate risk Now with progressive PSA level. Initially patient tried alternative therapy but finally started on ADT with Zoladex and Casodex on 08/25/2019 and concurrent with radiation therapy which he completed on 10/19/2019, At patient's request Zoladex was discontinued after dose given on January 30, 2020 And decided to observe with PSA Plan: Discussed with patient regarding his labs CMP within normal limits and PSA is 10.65 compared to 4.88 on October 03, 2021 Clinically, patient denies any new signs symptom suggestive of disease progression but his PSA continues to progress and with a short doubling time, his recently done PSMA scan at [facility], shows no obvious metastatic disease but multiple vague lesions, discussed with patient regarding treatment options including observation or intermittent versus continuous ADT, as patient had excellent response to ADT in the past but with significant side effects specially hot flashes, patient agreed for intermittent therapy with ADT, at this point, will consider Zoladex alone 10.8 mg every 3 months, all the side effect possible benefits associated with ADT including but not limited to, hot flashes, generalized weakness and fatigue, fluid retention, mood swings, bone demineralization, gynecomastia were mentioned, patient is aware of most of the side effect and agreed to proceed with intermittent ADT with Zoladex, will obtain approval from his insurance prior to the treatment and then patient return to clinic 3 months after next dose of Zoladex with a testosterone/PSA and if PSA is subzero, may consider 1 more dose and then monitor. Signed By: Saturnino Quintero M.D. <<Signature on File>>
== END 2021-11-18 12:56 | disposition home or self-care (01) ==
LOC: ONCMED 13:00
PROVIDERS: Visit Provider Internal Medicine Hematology & Oncology
DX: C63.7 Malignant neoplasm of other specified male genital organs (principal); R97.20 Elevated prostate specific antigen [PSA]; Z79.811 Long term (current) use of aromatase inhibitors; Z79.899 Other long term (current) drug therapy
CPT/HCPCS: 36415; 80053; 84153; 99214

== ENCOUNTER → 2021-11-21 15:11 | Outpatient (BNVA) | payer OTHER, SELFPAY | PROVIDERS: Visit Provider Internal Medicine Rheumatology | DX: M06.041 Rheumatoid arthritis without rheumatoid factor, right hand (principal); M06.042 Rheumatoid arthritis without rheumatoid factor, left hand; M15.9 Polyosteoarthritis, unspecified; Z79.899 Other long term (current) drug therapy; Z71.89 Other specified counseling | CPT/HCPCS: 99214 ==

== ENCOUNTER 2021-11-28 08:51 | Outpatient (CLI) | payer OTHER, SELFPAY ==
[2021-11-28] MEDS: goserelin acetate 10.8 mg Implant SUBCUT (09:25)
== END 2021-11-28 08:52 | disposition home or self-care (01) ==
PROVIDERS: Visit Provider Internal Medicine Hematology & Oncology
DX: C61 Malignant neoplasm of prostate (principal); Z79.818 Long term (current) use of other agents affecting estrogen receptors and estrogen levels
CPT/HCPCS: 96372; 96402; J9202

== ENCOUNTER 2021-12-12 13:27 | Outpatient (CLI) | payer OTHER, SELFPAY ==
--- NOTE | 2021-12-16 09:01 | ONC FU_ITS ---
Radha Richardson Progress Note Patient: Gabriele Sommers Unit #: [id number]: 1940 Dicatated By: Radha Richardson N.P.Date of Visit:Dec 12, 2021 Onc MED Follow-up/Prog Note Chief Complaint: Prostrate cancer History of Present Illness: Mr. 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 There is also focal involvement of periprostatic soft tissue margin in the posterior aspect of the left peripheral zone. Adenocarcinoma also extends to within 1 mm of apical margin bilaterally, lymphovascular invasion seen along the perineural invasion. And now lymph nodes were identified. Post operatively patient developed persistent leakage And no return of erectile function During follow-up with his urologist on 08/19/2018 his PSA gone up to 0.11 compared to 0 .04 on previous visit, As per patient, at that point role of radiation therapy was discussed. But patient declined, patient also declined hormonal therapy rather wants to try herbal therapy e.g. black 'sev', knowing the risks involved this plan. Patient was referred to radiation oncology for evaluation, he was seen by Dr. Oconnor on 09/30/2018, salvage radiation was recommended but patient declined that too.was observed with PSA while on Alternative therapy with [place] herbs Finally patient agreed to see radiation oncology on 08/18/2019 because of progressive PSA and agreed to take Casodex in addition to Zoladex. Patient was started on radiation therapy to prostate bed last week and he has completed one month of Casodex.Completed radiation therapy on 10/19/2019 Patient continue with Zoladex still January 30, 2020, he was supposed to come back for 3 monthly dose in April 2020 but patient and his decided not to take anymore because of related side effects e.g. hot flashes. Bone scan done on July 05, 2020 shows no evidence of bone metsAnd his PSA on July 05, 2020 was less than 0.006 MRI scan of lumbar spine and left hip done for lower back pain/left hip pain on July 24, 2021 showed multilevel disc protrusion with impingement on the left subarticular recess at L2-L3, and impingement traversing L5 nerve roots bilaterally, no metastatic disease Left hip MRI scan shows simple linear tear in the anterior left labrum and no evidence of metastatic disease Because of progressive PSA level ,PSMA scan done on September 02, 2021 at [place] shows PSMA avid nodules within the left retzius space, 1 of which has moderate intensity. Atypical site for prostate spread this is equivocal for recurrent prostate cancer. Moderate PSMA activity within the right posterior occipital bone suspicious for metastatic disease but not definitive, MRI recommended Mildly PSMA avid right upper quadrant mesenteric nodule is also equivocal given the relatively low level uptake and atypical location. Mild tracer activity within prostatectomy resection bed along the pelvic peritoneal reflections equivocal but favored to represent postsurgical changes enlarged heterogeneous left thyroid, recommend sonogram Patient presents today for follow-up. He states he has been feeling pretty well he does have increased fatigue after restarting Zoladex on 11/28/2021. He does also experience hot flashes. He denies shortness of breath, cough, chest pain. No GI or problems. No joint pain or bone pain. No headache or dizziness. Review Of Symptoms:Review of Systems is not available for this patient. Past Medical History: Cardiac murmur Depression History of renal cell cancer Hypertension Type II diabetes Covid virus in 2021 Cancer (prostate) in 2018 Past Surgical History: TRUSP / biopsy in 2018 Partial Nephrectomy in 2012 - Right Cholecystectomy in 2007 Bilateral carpal tunnel release in 2005 Allergies: medical tape Medications: Acetaminophen Extra Strength 2 Tablet (of 500 mg) Oral b.i.d. Calcium 1 Tablet (of 500 mg) Oral daily Hydroxychloroquine Sulfate 1 Tablet (of 200 mg) Oral b.i.d. Lutein 1 Tablet (of 20 mg) Oral daily st. davis wort 1 Capsule Oral daily Vitamin B12 1 Tablet Oral daily Family History: Mr. Sommers's mother at age 88. Mr. Sommers's father at age 91. Social History: Mr. Sommers is and he is retired. Mr. Sommers quit smoking 54 years ago but had smoked 1.0 pack/day for 8 years. He has no history of drinking. Physical Examination: Performed on Dec 12, 2021 16:31: Height - 70.00 in, Weight - 182.2 lbs (HIGH), BSA - 2.01 sq.m, BMI - 26.14, Temperature - 97.8 F (LOW), Pulse - 72 /min, Respiration - 16 /min, BP - 145/80 mm(hg) (HIGH), O2 Sat - 96 %, Pain - 0, and Fatigue - 7. Performance Status: 0 - Fully active, able to carry on all predisease activities without restrictions. (ECOG) Constitutional Alert, cooperative, oriented. Mood and affect appropriate. Appears close to chronological age. Well nourished. Well developed. Head Normocephalic; no scars. Eyes Conjunctivae and sclerae are clear and without icterus. Pupils are reactive and equal. Respiratory Lungs are clear to auscultation without rhonchi or wheezing. Cardiovascular Regular rate and rhythm of heart without murmurs, gallops or rubs. Abdomen Non-tender, non-distended, no masses, ascites or hepatosplenomegaly. Good bowel sounds. No guarding or rebound tenderness. Psychiatric Alert and oriented times three. Coherent speech. Verbalizes understanding of our discussions today. Laboratory: Test performed on Dec 12, 2021 13:53 Testosterone, Total 98.0 ng/dL PSA 7.490 ng/mL Impression: Adenocarcinoma prostate status post robotic-assisted laparoscopic radical prostatectomy done on 04/05/2018 final pathology report showed pT3, tumor invades the right seminal vesicle, with positive surgical margins, pNx no lymph nodes submitted, stage pT3,pNx,pMx Intermediate risk Now with progressive PSA level. Initially patient tried alternative therapy but finally started on ADT with Zoladex and Casodex on 08/25/2019 and concurrent with radiation therapy which he completed on 10/19/2019, At patient's request Zoladex was discontinued after dose given on January 30, 2020 And decided to observe with PSA Plan: Discussed with patient regarding his labs CMP within normal limits and PSA is 10.65 compared to 4.88 on October 03, 2021 PSA continues to progress and with a short doubling time, his recently done PS[facility] scan at [facility], shows no obvious metastatic disease but multiple vague lesions, discussed with patient regarding treatment options including observation or intermittent versus continuous ADT, as patient had excellent response to ADT in the past but with significant side effects specially hot flashes, patient agreed for intermittent therapy with ADT with Zoladex alone 10.8 mg every 3 months. Patient PSA is improving with his Zoladex. It has decreased to 7.490 from 10.650 on 11/18/2021. He will return in February 2022 for next dose of Zoladex. If his PSA is subzero we will consider discontinuing and monitoring. Signed By: Radha Richardson N.P. <<Signature on File>>
== END 2021-12-12 13:28 | disposition home or self-care (01) ==
PROVIDERS: Visit Provider Nurse Practitioner Family
DX: C61 Malignant neoplasm of prostate (principal); I10 Essential (primary) hypertension; E11.9 Type 2 diabetes mellitus without complications; Z79.899 Other long term (current) drug therapy; Z87.891 Personal history of nicotine dependence; Z85.528 Personal history of other malignant neoplasm of kidney
CPT/HCPCS: 36415; 84153; 84403; 99214

== ENCOUNTER 2022-03-07 10:00 | Oncology outpatient (recurring) (ONCR) | payer OTHER, SELFPAY ==
[2022-03-07] MEDS: lidocaine 1% INJ 20 mL SUBCUT (09:38)
[2022-03-07] MEDS: goserelin acetate 10.8 mg Implant SUBCUT (09:52)
[2022-03-07 09:58] VITALS: BP 128/80; PULSE 64; TEMP 36.3; O2SAT 96
== END 2022-03-11 23:59 | disposition home or self-care (01) ==
PROVIDERS: Nurse Practitioner Family; Visit Provider Internal Medicine Hematology & Oncology
DX: C61 Malignant neoplasm of prostate (principal); R97.21 Rising PSA following treatment for malignant neoplasm of prostate; M06.041 Rheumatoid arthritis without rheumatoid factor, right hand; M06.042 Rheumatoid arthritis without rheumatoid factor, left hand; M15.9 Polyosteoarthritis, unspecified; G20 Parkinson's disease; M75.02 Adhesive capsulitis of left shoulder; Z51.11 Encounter for antineoplastic chemotherapy
CPT/HCPCS: 84153; 96372; 96402; 99214; 99999; J9202

== ENCOUNTER → 2022-03-20 14:07 | Outpatient (BNVA) | payer OTHER, SELFPAY | PROVIDERS: Visit Provider Internal Medicine Rheumatology | DX: M06.041 Rheumatoid arthritis without rheumatoid factor, right hand (principal); M06.042 Rheumatoid arthritis without rheumatoid factor, left hand; M15.9 Polyosteoarthritis, unspecified; Z79.899 Other long term (current) drug therapy; Z85.46 Personal history of malignant neoplasm of prostate; Z92.3 Personal history of irradiation; Z90.79 Acquired absence of other genital organ(s); Z71.89 Other specified counseling | CPT/HCPCS: 80076; 82565; 85025; 86140; 99214 ==

== ENCOUNTER 2022-04-04 13:10 | Emergency (ER) | payer OTHER, MEDICARE, SELFPAY ==
[2022-04-04 13:55] VITALS: BP 187/98; PULSE 79; RESP 14; TEMP 36.7; O2SAT 96; BMI 25.8
--- NOTE | 2022-04-04 17:44 | W.ED.GENADLT ---
HPI - General Adult General: Chief complaint: Urogenital-Male Stated complaint: unable to void Time Seen by Provider: 04/04/22 16:13 History of Present Illness: Mr. Gabriele Sommers is a 82-year-old gentleman with history of prostrate cancer of acinar adenocarcinoma w/ laparoscopic radical prostatectomy on 04/05/2018 who presents the emergency room for concerns of acute urinary retention and hematuria since 5:00 this morning. Patient tells me that previously after surgery he was on an indwelling Negron. Since then, patient tells me that his PSA number has been low. In addition, patient reports he has been unable to void since 5am and has had hematuria for the last 2 days. Denies any flank pain, nausea/vomiting fever/chills, or other complaint. Patient denies any new penile discharge. Patient denies nausea/vomiting, fever/chill, chest pain, shortness of breath, diarrhea/melena/hematochezia. Onset:5am today Duration:ongoing Location:home Severity:moderate Associated symptoms: Deny chest pain, dyspnea, nausea, rash, palpitations or vomiting Review of Systems Const: Denies: fever(s) or chills Eyes: Denies: change in vision ENMT: Denies: mouth pain Card: Denies: chest pain or palpitations Resp: Denies: dyspnea or non-productive cough GI: Denies: abdominal pain, nausea, vomiting or diarrhea : Reports: difficulty urinating (+acute urinary retention and hematuria); Denies: dysuria Musc: Denies: extremity pain Skin/Breast: Denies: rash or new lesions Neuro: Denies: weakness in extremities Psych: Reports: other (Normal mood) David/Lymph: Denies: easy bruising PFSH ED PFSH: Medical History Adhesive capsulitis Arthralgia of both hands Biochemically recurrent malignant neoplasm of prostate High risk medication use Immunization counseling Inflammatory arthritis Osteoarthritis, generalized Parkinsons Prostate cancer PSA elevation Seronegative rheumatoid arthritis of both hands Surgical History History of cholecystectomy History of kidney surgery Family History Other CAD (coronary artery disease) Cancer Chronic kidney disease (CKD) Denies family history of Rheumatoid arthritis Diabetes Lupus Clotting disorder Dementia Hyperlipidemia Psychiatric illness Suicide Anesthesia complication Bleeding disorder Lung disease Hypertension Stroke Social History Smoking and tobacco status: never smoked Alcohol intake: never History of recent travel: No Physical Exam Const: COMMON NORMALS: alert HENMT: COMMON NORMALS: atraumatic HEAD & SCALP: atraumatic MOUTH: moist mucous membranes not abnormal Eye: COMMON NORMALS: EOMs intact bilaterally and conjunctivae normal CONJUNCTIVA: Yes conjunctivae normal Neck/C-Spine: COMMON NORMALS: full ROM and supple Resp: COMMON NORMALS: normal respiratory effort and clear to auscultation bilaterally AUSCULTATION: clear to auscultation bilaterally Cardio: COMMON NORMALS: regular rate RATE: regular rate GI: COMMON NORMALS: Soft to palpation and non-tender PALPATION: Yes Soft to palpation : OTHER: Normal external genitalia, Testicles non-tender b/l, no erythema. Extremity: COMMON NORMALS: full ROM Neuro: SENSORIUM/ORIENTATION: Yes alert MOTOR EXAM: No Abnormal motor strength present and Other motor observations present (no focal motor deficits) Psych: COMMON NORMALS: speech normal SPEECH: Yes normal speech MOOD & AFFECT: Yes euthymic mood Course Vital Signs: Vital signs: Vital Signs Temperature 98.1 F 04/04/22 13:55 Pulse Rate 79 04/04/22 13:55 Respiratory Rate 16 04/04/22 23:24 Blood Pressure 139/76 04/04/22 23:24 Pulse Oximetry 97 04/04/22 23:24 MDM - General Adult Medical Decision Making 82-year-old male with a history of prostate cancer presenting to the emergency room for evaluation acute urinary pain since 5 AM. On physical exam, patient has no suprapubic tenderness. Initial bladder scan showed a volume of 240. Creatinine within normal limit. Patient shortly after was noted to void on himself. There is mild blood noted on the urine. However, we were not able to advance his 14 Australian or 16 Australian Negron. We attempted coud? however noted hematuria. Patient has moderate pain to coud? catheter and we were unsuccessful. We do not urology service today. Case was discussed with Dr. Diallo who agreed with the transfer to [facility] in [place] for acute urinary retention and hematuria Disposition: Transfer to outside hospital Lab Data : 04/04/22 18:52 04/04/22 18:52 Laboratory Results WBC 8.1 10^3/uL (4.0-10.0) 04/04/22 18:52 RBC 4.21 10^6/uL (4.1-5.3) 04/04/22 18:52 Hgb 13.4 g/dL (11.7-16.6) 04/04/22 18:52 Hct 38.8 % (42.0-52.0) L 04/04/22 18:52 MCV 92.2 fl (80-94) 04/04/22 18:52 MCH 31.8 pg (28.0-34.0) 04/04/22 18:52 MCHC 34.5 g/dL (30.0-36.0) 04/04/22 18:52 RDW 12.8 % (12.1-15.1) 04/04/22 18:52 Plt Count 132 10^3/cmm (130-400) 04/04/22 18:52 MPV 10.2 fL (7.4-10.4) 04/04/22 18:52 Neut % (Auto) 87.3 % 04/04/22 18:52 Lymph % (Auto) 6.2 % 04/04/22 18:52 [place] % (Auto) 5.8 % 04/04/22 18:52 Eos % (Auto) 0.1 % 04/04/22 18:52 Baso % (Auto) 0.4 % 04/04/22 18:52 Neut # (Auto) 7.08 10^3/uL (1.8-7.7) 04/04/22 18:52 Lymph # (Auto) 0.5 10^3/uL (0.8-4.8) L 04/04/22 18:52 [place] # (Auto) 0.5 10^3/uL (0.2-0.9) 04/04/22 18:52 Eos # (Auto) 0.0 10^3/uL (0.0-0.8) 04/04/22 18:52 Baso # (Auto) 0.0 10^3/uL (0.0-0.1) 04/04/22 18:52 Nucleated RBC % (auto) 0 % 04/04/22 18:52 Nucleated RBCs # 0.0 /100WBC 04/04/22 18:52 Sodium 139 mmol/L (136-145) 04/04/22 18:52 Potassium 4.8 mmol/L (3.5-5.1) 04/04/22 18:52 Chloride 103 mmol/L (98-107) 04/04/22 18:52 Carbon Dioxide 26 mmol/L (22-29) 04/04/22 18:52 Anion Gap 14.8 (5-19) 04/04/22 18:52 BUN 23 mg/dL (8-23) 04/04/22 18:52 Creatinine 0.8 mg/dL (0.7-1.2) 04/04/22 18:52 GFR Calculation Not Reportable 04/04/22 18:52 Glucose 106 mg/dL (65-115) 04/04/22 18:52 Calculated Osmolality 292 mOsm/kg (285-295) 04/04/22 18:52 Calcium 9.4 mg/dL (8.5-10.5) 04/04/22 18:52 Discharge Plan Discharge Patient Disposition: Transfer to ED Clinical Impression: Acute urinary retention, Hematuria Condition: Stable Prescriptions: No Action Staley's wort 300 mg capsule 300 mg PO QAM 0RF carbidopa-levodopa 25-100 mg tablet 2 tab PO TID 0RF tramadol 50 mg tablet 50 mg PO TID PRN (Reason: pain) Qty: 60 1RF hydroxychloroquine 200 mg tablet 200 mg PO BID Qty: 180 1RF sulfasalazine 500 mg tablet 1 g PO BID Qty: 360 0RF Rx Instructions: give with food (meal/snack) Calcium 500 500 mg calcium (1,250 mg) Tablet 500 mg PO DAILY 0RF vitamin B complex Tablet 1 tab PO TID 0RF Vitamin B-12 1 tab PO DAILY 0RF lutein 1 cap PO DAILY 0RF leflunomide 20 mg tablet 20 mg PO QAM 0RF diclofenac sodium 1 % gel 2 g topical QID PRN (Reason: Pain) 0RF Rx Instructions: apply to affected area as needed prochlorperazine maleate [Compazine] 10 mg Tablet 10 mg PO Q4H PRN (Reason: Mild Nausea) Qty: 30 3RF Discharge Diet: Advance as tolerated Discharge Activity: Increase activity as tolerated Patient Instructions: Urinary Retention in Men (ED) Activity Restrictions/Additional Instructions: Our director of casework department will have you follow-up with Dr. Chambers in the next few days. You would be expected to have a phone call with our director of casework department who will put you on the schedule. You can expect a call from us in the next 2-3 days. If you don't hear from us, call us back in the emergency room at [phone]. Come back to the emergency room for any fever or chills, any more urinary retention, bleeding with urination or any new or concerning complaints. Coding Level of Care Code ED Tenoner Operator for Rahel Fwd Exam Comprehensive
[2022-04-04 19:11] LABS: Basophils % 0.4 %; Eosinophils % 0.1 %; Hematocrit 38.8 % (42.0-52.0); Hemoglobin 13.4 g/dL (11.7-16.6); Lymphocytes # 0.5 10^3/uL (0.8-4.8); Lymphocytes % 6.2 %; Mean Corpuscular HGB Conc 34.5 g/dL (30.0-36.0); Mean Corpuscular Hemoglobin 31.8 pg (28.0-34.0); Mean Corpuscular Volume 92.2 fl (80-94); Mean Platelet Volume 10.2 fL (7.4-10.4); Monocytes # 0.5 10^3/uL (0.2-0.9); Monocytes % 5.8 %; Neutrophils # 7.08 10^3/uL (1.8-7.7); Neutrophils % 87.3 %; Nucleated Red Blood Cells % 0 %; Platelet Count 132 10^3/cmm (130-400); Red Blood Count 4.21 10^6/uL (4.1-5.3); Red Cell Distribution Width 12.8 % (12.1-15.1); White Blood Count 8.1 10^3/uL (4.0-10.0)
[2022-04-04 19:28] LABS: Blood Urea Nitrogen 23 mg/dL (8-23); Calcium 9.4 mg/dL (8.5-10.5); Carbon Dioxide 26 mmol/L (22-29); Chloride 103 mmol/L (98-107); Creatinine Clr Calc Pharmacy 78.3172; Glucose 106 mg/dL (65-115); Osmolality Calculated 292 mOsm/kg (285-295); Sodium 139 mmol/L (136-145)
[2022-04-04 20:41] LABS: Anion Gap 14.8 (5-19); Potassium 4.8 mmol/L (3.5-5.1)
[2022-04-04 23:24] VITALS: BP 139/76; RESP 16; O2SAT 97
--- NOTE | 2022-04-05 10:34 | DCPLANNER ---
Addendum entered by Amina Fairbanks 04/25/22 15:21: Patient had a follow up appointment scheduled for 04.18.22 with urology - patient did attend appointment. Addendum entered by Amina Fairbanks 04/05/22 10:46: chronic disease manager sent patients information to Mel with [facility] for the authorization process to begin. Original Note: chronic disease manager had message to schedule a follow up appointment for patient with urology. Patient was transferred to another hospital. chronic disease manager did sent patients information to the front office staff at urology, to check to see if he needed followup when he returns home.
== END 2022-04-04 23:29 ==
PROVIDERS: Emergency Provider Emergency Medicine
DX: R33.9 Retention of urine, unspecified (principal); R31.9 Hematuria, unspecified; Z85.46 Personal history of malignant neoplasm of prostate
CPT/HCPCS: 36415; 80048; 85025; 99283

== ENCOUNTER → 2022-04-18 07:30 | Outpatient (BNVA) | payer OTHER, MEDICARE, SELFPAY | PROVIDERS: Visit Provider Nurse Practitioner Family | DX: R33.8 Other retention of urine (principal); N32.0 Bladder-neck obstruction; C61 Malignant neoplasm of prostate | CPT/HCPCS: G0463; 99203 ==

== ENCOUNTER → 2022-04-24 15:14 | Outpatient (BNVA) | payer OTHER, SELFPAY | PROVIDERS: PCP Family Medicine; Visit Provider Urology | DX: C61 Malignant neoplasm of prostate (principal); R33.8 Other retention of urine; N32.0 Bladder-neck obstruction | CPT/HCPCS: 52000; 99213 ==

== ENCOUNTER → 2022-04-30 08:43 | Outpatient (BNVA) | payer OTHER, SELFPAY | PROVIDERS: PCP Family Medicine; Visit Provider Nurse Practitioner Family | DX: N32.0 Bladder-neck obstruction (principal); R33.8 Other retention of urine; N47.2 Paraphimosis | CPT/HCPCS: 99213 ==

== ENCOUNTER 2022-04-30 20:56 | Emergency (ER) | payer OTHER, MEDICARE, SELFPAY ==
[2022-04-30 21:02] VITALS: BP 181/87; PULSE 77; RESP 20; TEMP 36.4; O2SAT 95; BMI 25.8
--- NOTE | 2022-04-30 21:21 | W.ED.GENADLT ---
HPI - General Adult General: Chief complaint: Urogenital-Male Stated complaint: Can't Urinate Time Seen by Provider: 04/30/22 21:12 History of Present Illness: Patient is an 82-year-old male with a history of prostate cancer status post radical prostatectomy on 04/05/2018 chronically Oropeza dependent presenting to the emergency room with concerns of hematuria, acute urinary retention and dysuria. Patient tells me that since going home following seen in Dr. Chambers earlier today, patient has had urinary retention this evening. Patient report acute pain and inability to void. Patient came to the emergency room for for further evaluation. Patient denies any fever/chills, periurethral drainage, abdominal pain or flank pain. Of note, patient was recently started on cefuroxime. Onset: 7pm Duration:ongoing Location:home Severity:moderate Associated symptoms: Deny chest pain, dyspnea, nausea, rash, palpitations or vomiting Review of Systems Const: Denies: fever(s) or chills Eyes: Denies: change in vision ENMT: Denies: mouth pain Card: Denies: chest pain or palpitations Resp: Denies: dyspnea or non-productive cough GI: Denies: abdominal pain, nausea, vomiting or diarrhea : Reports: difficulty urinating, dysuria and other (+hematuria, +acute urinary retention) Musc: Denies: extremity pain Skin/Breast: Denies: rash or new lesions Neuro: Denies: weakness in extremities Psych: Reports: other (Normal mood) David/Lymph: Denies: easy bruising PFSH ED PFSH: Medical History Adhesive capsulitis Arthralgia of both hands Biochemically recurrent malignant neoplasm of prostate High risk medication use Immunization counseling Inflammatory arthritis Osteoarthritis, generalized Parkinsons Prostate cancer PSA elevation Seronegative rheumatoid arthritis of both hands Surgical History History of cholecystectomy History of kidney surgery Family History Other CAD (coronary artery disease) Cancer Chronic kidney disease (CKD) Denies family history of Rheumatoid arthritis Diabetes Lupus Clotting disorder Dementia Hyperlipidemia Psychiatric illness Suicide Anesthesia complication Bleeding disorder Lung disease Hypertension Stroke Social History Smoking and tobacco status: never smoked Alcohol intake: never Marital status: Current occupational status: retired History of recent travel: No Physical Exam Const: COMMON NORMALS: alert HENMT: COMMON NORMALS: atraumatic HEAD & SCALP: atraumatic MOUTH: moist mucous membranes not abnormal Eye: COMMON NORMALS: EOMs intact bilaterally and conjunctivae normal CONJUNCTIVA: Yes conjunctivae normal Neck/C-Spine: COMMON NORMALS: full ROM and supple Resp: COMMON NORMALS: normal respiratory effort and clear to auscultation bilaterally AUSCULTATION: clear to auscultation bilaterally Cardio: COMMON NORMALS: regular rate RATE: regular rate GI: COMMON NORMALS: Soft to palpation and non-tender PALPATION: Yes Soft to palpation OTHER: No focal TTP. NO guarding rebound, guarding, rigidity. No CVA tenderness to percussion. Neg David/Neg McBurney's point tenderness, no suprabupic tenderness to palpation. : OTHER: 16Fr indwelling oropeza in place with passage of blood clots in the urine bag Extremity: COMMON NORMALS: full ROM Neuro: SENSORIUM/ORIENTATION: Yes alert MOTOR EXAM: No Abnormal motor strength present and Other motor observations present (no focal motor deficits) Psych: COMMON NORMALS: speech normal SPEECH: Yes normal speech MOOD & AFFECT: Yes euthymic mood Course Vital Signs: Vital signs: Vital Signs Temperature 97.5 F L 04/30/22 21:02 Pulse Rate 77 04/30/22 21:02 Respiratory Rate 20 H 04/30/22 21:02 Blood Pressure 181/87 04/30/22 21:02 Pulse Oximetry 95 04/30/22 21:02 [facility] - General Adult Medical Decision Making 82-year-old male with history of radical prostatectomy for prostate cancer presenting to the emergency room with concerns for acute urinary retention, hematuria and dysuria. On exam, patient is hemodynamically stable without any focal lower abdominal or flank tenderness palpation. No guarding or rebound tenderness. There is no periurethral drainage. There is noted to be blood clots in the Oropeza bag. We will send urine today to ensure that the fever cefuroxime will cover the appropriate organism for patient symptom for dysuria. My nurse flush patient's Oropeza with dislodgment of clots. Patient has been able to void urine. I do not suspect any additional urinary retention as patient reports significant symptom improvement. In addition, I have instructed my nurse to teach patient how to perform flushes at home to avoid weight coming to the emergency room. Patient is given strict return approximately signs of infection including fever/chills, flank pain, nausea/vomiting, lower abdominal pain, or any new concerning complaints. Disposition: Discharge. Patient counseled regarding diagnostic impression, treatment plan. Patient given ED strict return precautions to return for continuation, worsening, or development of new symptoms. Instructed to f/u w/ Urology regarding symptoms today. Patient verbalized understanding. Discharge Plan Discharge Patient Disposition: Home Clinical Impression: Hematuria, Acute urinary retention Condition: Stable Prescriptions: No Action Rattan's wort 300 mg capsule 300 mg PO QAM 0RF carbidopa-levodopa 25-100 mg tablet 2 tab PO TID 0RF tramadol 50 mg tablet 50 mg PO TID PRN (Reason: pain) Qty: 60 1RF hydroxychloroquine 200 mg tablet 200 mg PO BID Qty: 180 1RF sulfasalazine 500 mg tablet 1 g PO BID Qty: 360 0RF Rx Instructions: give with food (meal/snack) cefuroxime axetil 500 mg tablet 500 mg PO BID Qty: 20 0RF Calcium 500 500 mg calcium (1,250 mg) Tablet 500 mg PO DAILY 0RF vitamin B complex Tablet 1 tab PO TID 0RF Vitamin B-12 1 tab PO DAILY 0RF lutein 1 cap PO DAILY 0RF leflunomide 20 mg tablet 20 mg PO QAM 0RF diclofenac sodium 1 % gel 2 g topical QID PRN (Reason: Pain) 0RF Rx Instructions: apply to affected area as needed Discharge Orders: Discharge ED (Routine); Ordered 04/30/22 Ordered By: Osmany Lipscomb Referrals: Rhonda Yousif MD [Primary Care Provider] - Discharge Diet: Advance as tolerated Discharge Activity: Increase activity as tolerated Patient Instructions: Hematuria (ED) Activity Restrictions/Additional Instructions: Please come back to the emergency room for any new extreme complaints. Our window caser will have you follow-up with Urology in the next few days. You would be expected to have a phone call with our window caser who will put you on the schedule. You can expect a call from us in the next 2-3 days. If you don't hear from us, call us back in the emergency room at [phone]. Coding Level of Care Code ED It Project Lead for Chg Fwd Exam Comprehensive
--- NOTE | 2022-04-30 22:00 | PC.NURSE ---
Flushed the catheter with no resistance. Drained well. Pt tolerated procedure.
[2022-04-30 22:19] VITALS: BP 169/78; PULSE 77; RESP 16; TEMP 36.7; O2SAT 95
[2022-04-30 22:26] LABS: Bilirubin Urine 1+ (Negative); Blood Urine 3+ (Negative); Glucose Urine UA Norm (Normal); Ketones Urine 1+ (Negative); Leukocyte Esterase Urine 2+ (Negative); Nitrate Urine Positive (Negative); Protein Urine 3+ (Negative); RBC Urine TOO NUMEROUS TO CNT /hpf (0-2); Urine Appearance Cloudy (CLEAR); Urine Color Brown (Yellow); Urobilinogen Urine 1 mg/dL (Negative); WBC Urine 0-4 /hpf (0-5); pH Urine 5 (5-7)
[2022-04-30 22:27] LABS: Add Urine Culture? Yes; Add Urine Microscopic? YES; Amorphous Sediment Urine 1+ /hpf; Bacteria Urine 4+ /hpf; Squamous Epithelial Cell Urine 0-4 /hpf (0-5)
== END 2022-04-30 22:21 | disposition home or self-care (01) ==
PROVIDERS: Emergency Provider Emergency Medicine; PCP Family Medicine
DX: R31.9 Hematuria, unspecified (principal); R33.9 Retention of urine, unspecified; G20 Parkinson's disease; Z85.46 Personal history of malignant neoplasm of prostate
CPT/HCPCS: 51702; 81001; 87077; 87086; 87186; 99283

== ENCOUNTER → 2022-05-19 15:02 | Outpatient (BNVA) | payer OTHER, SELFPAY | PROVIDERS: PCP Family Medicine; Visit Provider Urology | DX: N32.0 Bladder-neck obstruction (principal); N99.89 Other postprocedural complications and disorders of genitourinary system; C61 Malignant neoplasm of prostate; R97.21 Rising PSA following treatment for malignant neoplasm of prostate | CPT/HCPCS: 52000; 99213 ==

== ENCOUNTER → 2022-05-30 12:02 | Outpatient (BNVA) | payer OTHER, SELFPAY | PROVIDERS: PCP Family Medicine; Visit Provider Urology | DX: R33.8 Other retention of urine (principal); N32.0 Bladder-neck obstruction | CPT/HCPCS: 52001; 99213 ==

== ENCOUNTER → 2022-06-03 15:22 | Outpatient (BNVA) | payer OTHER, SELFPAY | PROVIDERS: PCP Family Medicine; Visit Provider Urology | DX: R33.8 Other retention of urine (principal); N47.2 Paraphimosis; N99.89 Other postprocedural complications and disorders of genitourinary system; C61 Malignant neoplasm of prostate; R97.21 Rising PSA following treatment for malignant neoplasm of prostate; G20 Parkinson's disease; N30.40 Irradiation cystitis without hematuria; N30.41 Irradiation cystitis with hematuria | CPT/HCPCS: 54150; 99214 ==

== ENCOUNTER 2022-06-03 17:30 | Inpatient (IN) | payer OTHER, SELFPAY ==
[2022-06-03 18:35] VITALS: BP 215/110; RESP 18
[2022-06-03] MEDS: HYDROmorphone 1 mg/mL INJ 1 mL IVP ×2 (18:35→18:46)
[2022-06-03 18:46] VITALS: RESP 18
[2022-06-03] MEDS: lidocaine 2% Urojet 20 mL TOPICAL (18:46)
[2022-06-03 18:48] VITALS: BP 162/95; PULSE 74; RESP 18; TEMP 37.2; O2SAT 93
--- NOTE | 2022-06-03 18:54 | P.HP_ITS ---
Providers/Chief Complaint Admitting Physician: oJse Chambers MD Primary Care Provider: Rhonda Yousif MD Chief Complaint: Hematermia History of Present Illness Gabriele Sommers Primary care: Dr. 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 Treated with robotic assisted laparoscopic radical prostatectomy March 2018 with large volume and significant extraprostatic extension and seminal vesicle involvement.? No obvious lymphadenopathy or lymph node involvement. Patient declined salvage radiation therapy following rising PSA post prostatectomy. 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 Follow-up May [address] Reyes ([facility]); MRI revealed bilateral renal lesions (no significant change from May 2015), small lesion right kidney, several <2cm on the left consistent with oncocyctomas; no further intervention was recommended; recommended follow-up in 1 year. URINARY RETENTION ANASTOMOTIC STRICTURE Development of urinary retention secondary to anastomotic stricture requiring emergency dilation while I was out of town.? Performed in [place]. Post active dilation with further passive dilation via indwelling Russell catheter with planned SCIC CLOT RETENTION CURRENT VISIT (office visit leading to direct admission) 06/03/2022: UROLOGY follow-up visit Last visit was last Thursday with Dr. Chambers for complaint of gross hematuria and urinary retention with a history of bladder neck contracture/anastomotic stricture managed with SCIC. He began having gross hematuria 3 days prior to that visit. Had tried cathing that morning but got very little bloody return. Had been performing SCIC daily. Cystoscopy was performed and revealed some clots in the urethra, could not easily advance the scope through the anastomotic stricture. Stricture was dilated with catheter sounds from 14 Malian to 20 Malian. Scope was then passed, was noted to have multiple clots in the bladder which were irrigated. A 16 Malian Russell catheter was left in place. Plan was for voiding trial tomorrow but he called today with complaint of catheter not draining. Current data Symptoms: Was having penis and bladder pain.? Catheter was not draining.? No fever or chills. Irrigated with sterile water some few small clots returned and very cloudy urine. Physical exam showed paraphimosis.? Despite aggressive squeezing to reduce the edema I could not get it reduced. His catheter was exchanged for a 18 Malian hematuria catheter.? Catheter was irrigated more clots were returned. After confirming that the foreskin could not be easily reduced I recommended a dorsal slit circumcision. Procedure dorsal slit circumcision: He was then prepped for a dorsal slit circumcision.? This was to break the tight dorsal band. Usual prep performed.? Tissue infiltration with 1% lidocaine was performed on the anterior surface of the penis onto the shaft skin all the way to the rubi in the midline.? 15 blade was utilized to incise the skin through the band in a vertical fashion.? The skin was undermined.? Electrocautery was utilized for hemostasis.? The skin was then brought to catheter in the midline from the distal and proximal aspect of the incision allowing relaxation of the tight band.? Interrupted 3-0 chromic horizontal mattress sutures were placed. Reinspection revealed that there was still some tightness of the band.? For that reason the middle suture was removed and the incision was further opened proximally and distally all the way to the glans which created more relaxation.? 3 more interrupted horizontal mattress sutures were placed to close the incision as before.? This appeared to be adequate for reducing the band. Xeroform gauze was placed around the phallus and a 4 x 4 was loosely wrapped covered by Coban tape.? The catheter was irrigated again.? Some clots were cleared but the urine remained bloody for that reason a three-way Russell catheter was placed and it was decided to direct admit for CBI. Arrangements were made for direct admission to [facility]. PRIOR VISITS 05/30/2022: UROLOGY follow-up visit Last visit was 05/19/2022 in follow-up of gross hematuria with a history of bladder neck contracture/anastomotic stricture status post laparoscopic radical prostatectomy March 2018. Cystoscopy revealed some old clots in the bladder that were cleared, anastomotic junction was wide open, scope was passed easily without any restriction. Did well with SCIC training for stricture patency maintenance. Was to perform SCIC for stricture patency maintenance. Plan was for follow-up in? 4 months but he called today with complaint of gross hematuria. Current data Bladder scan:271 ML. Began having gross hematuria approximately 3 days ago. He has noticed a slowing of his stream the same time. Woke this morning was unable to void. Has passed the catheter 4 times with very little bloody return and clots. Could not get his bladder completely drained was becoming uncomfortable. SCIC program conducting daily. Recommended cystoscopy. CYSTOSCOPY/CLOT EVACUATION: 2% lidocaine jelly, informed consent obtained, routine prep. ?? ? Findings: There was some small clots in the urethra.? Could not easily advance the scope through the anastomotic stricture.? He was then dilated with coud? catheter sounds from 14-20 Malian.? This allowed passage of the scope into the bladder without difficulty.? There are multiple clots in the bladder and these were irrigated clear. RUSSELL CATHETER PLACEMENT: 16 Malian coud? tip Russell catheter placed without difficulty.? Irrigated multiple times with no evidence of active bleeding or further clots. Discussion: Maintain catheter until mid next week and return then for voiding trial. We will resume intermittent catheterization for stricture patency maintenance at that point. Encouraged him to call if they have trouble with catheter function. 05/19/2022: UROLOGY follow-up visit Last visit was 04/30/2022 with Kath Romeo after emergent bladder neck dilation (in March 2022 in [place]) for bladder neck contracture/anastomotic stricture post robotic assisted laparoscopic radical prostatectomy in March 2018. At last visit he was found to have a catheter occlusion secondary to some blood clots. Catheter was irrigated and it worked well. Was also found to have paraphimosis which was reduced. Encouraged to force fluids. Placed on antibiotics to cover during time of instrumentation with interm ittently poorly draining catheter increasing his risk of symptomatic infection He is back now for reevaluation with cystoscopy of the area that had been previously dilated which had been found to be still quite tight at scope on 04/24/2022. Current data Catheter function: Doing well since his last visit.? No recurrent clots or retention. Physical findings: Normal genitourinary exam Symptoms: CYSTOSCOPY: 2% lidocaine jelly, informed consent obtained, routine prep. ?? ? Findings: Had some old clots in the bladder which were cleared.? The anastomotic junction was wide open.? Scope was easily passed without any restriction Voiding trial: [facility] instruction: Did well with 16 Malian in and out cath. Discussion: Self cath for stricture patency maintenance program. Can use also for poor emptying.? Can check PVRs.? Reviewed the difference between catheterization for emptying versus stricture patency maintenance. Encouraged him to slowly increase interval between catheterizations if catheter was passed easily without any increasing difficulty over time with increasing intervals. Recheck in 4 months.? Sooner for increasing symptoms.? Prescription for catheters provided. Review of Systems Narrative: Const:?? Denies: fever(s) o r chills Eyes:?? Denies: yellow eye s ENMT:?? Denies: hoarseness Card:?? Denies: palpitatio ns Resp:?? Denies: dyspnea or productive cough GI:?? Reports: abdominal pain (LOWER); Den ies: constipation :?? 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 Denies: joint redn ess Skin/Breast:?? Denies: new lesion s Neuro:?? Reports: involunta ry movements Psych:?? Denies: anxiety Endo:?? Denies: polydipsia Vital Signs Medications/Allergies Home Medications Medication Instructions Recorded Confirmed Last Taken Type Medley's wort 300 mg capsule 300 mg PO QAM 06/04/20 06/03/22 04/04/22 History carbidopa 25 mg-levodopa 100 mg 2 tab PO TID 09/18/20 06/03/22 04/04/22 06:00 History tablet hydroxychloroquine 200 mg tablet 200 mg PO BID #180 tabs 03/20/22 06/03/22 04/04/22 06:00 Rx sulfasalazine 500 mg tablet 1 g PO BID #360 tabs 03/20/22 06/03/22 04/04/22 06:00 Rx tramadol 50 mg tablet 50 mg PO TID PRN pain #60 tabs 03/20/22 06/03/22 Unknown Rx calcium carbonate 500 mg calcium 500 mg PO DAILY 04/04/22 06/03/22 Unknown History (1,250 mg) tablet leflunomide 20 mg tablet 20 mg PO QAM 04/04/22 06/03/22 04/04/22 06:00 History lutein 1 cap PO DAILY 04/04/22 06/03/22 Unknown History vitamin B complex 1 tab PO TID 04/04/22 06/03/22 Unknown History cyanocobalamin (vitamin B-12) 1,000 mcg PO DAILY 06/04/22 06/04/22 Unknown Hi story 1,000 mcg tablet (Vitamin B-12) Allergies Allergy/AdvReac Type Severity Reaction Status Date / Time adhesive tape Allergy Unknown Verified 06/03/22 15:27 PFSH Acute PFSH: Medical History Adhesive capsulitis Arthralgia of both hands Biochemically recurrent malignant neoplasm of prostate High risk medication use Immunization counseling Inflammatory arthritis Osteoarthritis, generalized Parkinsons Prostate cancer PSA elevation Seronegative rheumatoid arthritis of both hands Surgical History History of cholecystectomy History of kidney surgery Family History Other CAD (coronary artery disease) Cancer Chronic kidney disease (CKD) Denies family history of Rheumatoid arthritis Diabetes Lupus Clotting disorder Dementia Hyperlipidemia Psychiatric illness Suicide Anesthesia complication Bleeding disorder Lung disease Hypertension Stroke Social History Smoking and tobacco status: never smoked Alcohol intake: never Marital status: Current occupational status: retired History of recent travel: No Vitals/I&O/Wt Last Vital Signs Resp 18 06/03/22 18:46 Physical Exam Narrative: Const:?? COMMON NORMALS: no acute distress, a verage body habitu s and patient orie nted x3 Neck/C-Spine:?? OTHER: Good range of motion Lymph:?? LYMPHATIC: no lymp hadenopathy noted Resp:?? COMMON NORMALS: no rmal respiratory e ffort and No retra ctions Cardio:?? COMMON NORMALS: re gular rate and reg ular rhythm? RATE: regular rate? RHY THM: regular rhyth m GI:?? COMMON NORMALS: So ft to palpation an d non-tender? PALP ATION: Yes Soft to palpation :?? MALE GROIN/PERINEU M EXAM: No ecchymo sis? MEATUS: meatu s normal Back/Pelvis:?? OTHER: No CVA tend erness Neuro:?? COMMON NORMALS: pa tient oriented x3? OTHER: Parkinson' s tremor.? Cogniti vely intact Psych:?? COMMON NORMALS: me ntal status grossl y normal and Diana l thought process present? THOUGHT P ROCESS: Normal tho ught process prese nt Data : 06/04/22 03:13 06/04/22 03:13 A&P Assessment and plan (1) Clot retention of urine: Status: Acute Plan (1) Clot retention of urine: ?Assessment & Plan: Russell catheter irrigated Three-way Russell catheter placed irrigated and CBI initiated. ?Status:?Acute ?Code(s): R33.8 - Other retention of urine (2) Paraphimosis: ?Assessment & Plan: Dorsal slit circumcision performed in clinic prior to direct admission ?Status:?Acute ?Code(s): N47.2 - Paraphimosis (3) Anastomotic stricture of urinary tract: ?Status:?Acute ?Code(s): N99.89 - Other postprocedural complications and disorders of genitourinary system (4) Biochemically recurrent malignant neoplasm of prostate: ?Status:?Acute ?Code(s): C61 - Malignant neoplasm of prostate; R97.21 - Rising PSA following treatment for malignant neoplasm of prostate (5) Parkinsons: ?Status:?Acute ?Code(s): G20 - Parkinson's disease (6) Radiation cystitis: ?Status:?Deleted ?Code(s): N30.40 - Irradiation cystitis without hematuria (7) Irradiation cystitis with hematuria: ?Status:?Acute ?Code(s): N30.41 - Irradiation cystitis with hematuria (8) Prostate cancer: ?Status:?Acute ?Code(s): C61 - Malignant neoplasm of prostate Attestations Medical Necessity Statement*: Refractory clot retention requiring CBI. Coding Level of Care Code Acute Plumbing Designer for Chg Fwd Diagnoses Clot retention of urine R33.8
[2022-06-03] MEDS: sodium chloride 0.45% 1,000 ML 75 ML IV (19:00)
[2022-06-03 19:08] VITALS: BMI 25.8
[2022-06-03] MEDS: piperacillin-tazobactam 3.375 GM in sodium chloride 0.9% (plus) 50 ML IV (19:37)
--- NOTE | 2022-06-03 19:47 | PC.NURSE ---
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 Patient stated he did not feel well so got set of vitals and BP was elevated. Attempted to manually flush 3 way but was unable too. Physician notified and orders received with physician headed to floor. Phsysian at bedside with his cart to manually irrigate and change out patient 3 way oropeza. CBI now running aggressively and patients pain now contolled with VSS.
[2022-06-03 20:00] VITALS: BP 157/82; PULSE 68; RESP 18; TEMP 36.3; O2SAT 92
[2022-06-03] MEDS: carbidopa-levodopa 25-100mg Tablet 2 EACH PO (21:20)
[2022-06-04] VITALS (7 sets, daily range): BP systolic 105–162; BP diastolic 61–89; PULSE 59–82; RESP 15–24; TEMP 36.3–37; O2SAT 91–98
[2022-06-04 04:16] LABS: Basophils % 0.8 %; Eosinophils # 0.1 10^3/uL (0.0-0.8); Eosinophils % 2.5 %; Hematocrit 32.5 % (42.0-52.0); Hemoglobin 10.3 g/dL (11.7-16.6); Lymphocytes # 0.6 10^3/uL (0.8-4.8); Lymphocytes % 14.9 %; Mean Corpuscular HGB Conc 31.7 g/dL (30.0-36.0); Mean Corpuscular Hemoglobin 30.4 pg (28.0-34.0); Mean Corpuscular Volume 95.9 fl (80-94); Mean Platelet Volume 10.1 fL (7.4-10.4); Monocytes # 0.4 10^3/uL (0.2-0.9); Monocytes % 9.1 %; Neutrophils # 2.85 10^3/uL (1.8-7.7); Neutrophils % 72.2 %; Nucleated Red Blood Cells % 0 %; Platelet Count 128 10^3/cmm (130-400); Red Blood Count 3.39 10^6/uL (4.1-5.3); Red Cell Distribution Width 13.4 % (12.1-15.1)
[2022-06-04 04:50] LABS: Anion Gap 12.8 (5-19); Blood Urea Nitrogen 17 mg/dL (8-23); Calcium 8.7 mg/dL (8.5-10.5); Carbon Dioxide 26 mmol/L (22-29); Chloride 103 mmol/L (98-107); Glucose 119 mg/dL (65-115); Osmolality Calculated 289 mOsm/kg (285-295); Potassium 3.8 mmol/L (3.5-5.1); Sodium 138 mmol/L (136-145)
[2022-06-04 04:53] LABS: Creatinine Clr Calc Pharmacy 78.3172
[2022-06-04] MEDS: TRAMadol 50 mg Tablet PO ×3 (05:46→22:16)
[2022-06-04] MEDS: sodium chloride 0.45% 1,000 ML 75 ML IV ×2 (05:47→18:40)
--- NOTE | 2022-06-04 06:34 | PC.NURSE ---
During my shift [id number] CBI totals were 11 bags infused for a total 33,000 in and 36,825 out total urine was 3,825ml
[2022-06-04] MEDS: carbidopa-levodopa 25-100mg Tablet 2 EACH PO ×3 (09:12→20:32)
[2022-06-04] MEDS: sulfaSALAzine 500 mg Tablet 1000 MG PO ×2 (09:12→17:33)
--- NOTE | 2022-06-04 09:12 | PC.PHAR ---
pt states his takes care of his medications-pts marlen [phone] verified pts medications-pts [facility] med list had diclofenac sodium 2g qid and vitamin d 2000 units daily pts states the pt is no longer taking-
[2022-06-04] MEDS: HYDROmorphone 1 mg/mL INJ 1 mL IVP ×2 (09:21→20:32)
--- NOTE | 2022-06-04 09:27 | PM.PN ---
Subjective Subjective: Hospital day #2: Clot retention Had a rough night last night. Went through a lot of CBI but early in the morning his urine started to clear. Catheter irrigated this morning by myself with a few small clots returned. CBI has been decreased substantially in rate and his urine has remained for the most part clear to extremely light pink. Having some discomfort related to the catheter. No fever or chills. Denies chest pains or shortness of breath. Hungry No mental status changes etc. Penis looks okay. Dressing taken down. Medications: Reviewed: Yes Vitals/I&O/Wt Last Vital Signs Temp 98.4 F 06/04/22 08:00 Pulse 59 L 06/04/22 08:00 Resp 15 06/04/22 09:21 BP 162/89 06/04/22 08:00 Pulse Ox 91 06/04/22 08:00 O2 Del Method 06/04/22 08:00 06/03/22 06/04/22 06/04/22 22:59 06:59 14:59 Intake Total 290 / 290 928.75 / 1218.75 Output Total 2700 / 2700 2475 / 5175 Balance -2410 / -2410 -1546.25 / -3956.25 Weight last 48 hrs Weight 180 lb Physical Exam Narrative: Alert oriented no acute distress. Neck: Good range of motion HEENT: Atraumatic normocephalic Respiratory: No audible wheezes. Nonlabored respiration Cardiovascular: Regular rate and rhythm Abdomen: Soft nontender no palpable masses. Bladder not distended. : Dressing taken down. Much reduced edema. Meatus looks normal. Catheter draining clear urine with much decreased CBI rate. Extremities good range of motion, no severe edema Neuro: Parkinson's tremor. Skin no rashes or lesions Psychiatric: No confusion. Mental status normal Urinary Catheter Management: 3-way Urethral CBI: Cath Placed During This Visit: yes Reason for Continuing Indwelling Catheter: Acute Urinary Retention or Obstruction Urinary Catheter Date of Insertion: 06/03/22 Urinary Catheter Time of Insertion: 18:30 Data : 06/04/22 03:13 06/04/22 03:13 A&P Assessment and plan (1) Clot retention of urine: Marked improvement since yesterday. Able to wean CBI off. Bladder evacuated of a few small clots but nothing severe. No evidence of active ongoing bleeding. Status: Acute (2) Anastomotic stricture of urinary tract: Urethrovesical anastomotic stricture status post multiple dilations. Likely contributing factor to his gross hematuria. Status: Chronic (3) Parkinsons: Status: Chronic (4) Paraphimosis: Status post emergency modified circumcision yesterday in clinic. No evidence of residual severe edema. Status: Acute (5) Malignant neoplasm of prostate: Status: Chronic (6) Inflammatory arthritis: Status: Acute (7) Acute cystitis with hematuria: Present at time of admission. Likely secondary to multiple instrumentation and retention. Status: Acute Plan 1. Continue conservative management of acute bleeding with clot retention now that he is no longer actively bleeding and CBI is able to be reduced. Manual irrigation as needed. 2. Maintain light dressing at circumcision site. Later may require formal circumcision and that this was a recurrent paraphimosis. 3. Continue routine home medications 4. He will remain at least 1 more overnight again and therefore I will switch him to inpatient status. Attestations Medical Necessity Statement*: Requiring CBI. We will continue IV antibiotics. Coding Level of Care Code Acute Repairer Resistance Welding Machines for Rahel Estrada Diagnoses Clot retention of urine R33.8 Anastomotic stricture of urinary tract N99.89 Parkinsons G20 Paraphimosis N47.2 Malignant neoplasm of prostate C61 Inflammatory arthritis M19.90 Acute cystitis with hematuria N30.01
--- NOTE | 2022-06-04 09:29 | PC.NURSE ---
irrigate Dr Chambers manual irrigated pt and got out several lg clots.
[2022-06-04] MEDS: diclofenac 1% Topical Gel 100 gm 1 APPLIC TOPICAL ×4 (10:04→20:53)
[2022-06-04] MEDS: neomycin-poly-bacitracin oint 28 gm 1 APPLIC TOPICAL ×2 (10:04→17:33)
[2022-06-04] MEDS: magnesium hydroxide 30 mL UDC PO (20:50)
[2022-06-05] VITALS: BP 155/84; PULSE 62; RESP 16; TEMP 36.9; O2SAT 91
[2022-06-05 04:00] VITALS: BP 160/88; PULSE 64; RESP 13; TEMP 37; O2SAT 88
[2022-06-05 06:24] VITALS: RESP 18
[2022-06-05] MEDS: HYDROmorphone 1 mg/mL INJ 1 mL IVP (06:24)
--- NOTE | 2022-06-05 06:43 | PC.NURSE ---
CBI running moderate rate, used 5 bags for a total of 15,000ml during my shift, output was 15,000ml. Manual irrigation performed 4 times throughout my shift with several small clots removed. Urine is still watermelon in color. Patient having some pain and nausea this morning.
[2022-06-05] MEDS: sodium chloride 0.45% 1,000 ML 75 ML IV ×2 (06:59→21:15)
[2022-06-05] MEDS: diclofenac 1% Topical Gel 100 gm 1 APPLIC TOPICAL ×4 (08:19→21:15)
[2022-06-05] MEDS: neomycin-poly-bacitracin oint 28 gm 1 APPLIC TOPICAL ×2 (08:19→17:23)
[2022-06-05] MEDS: magnesium hydroxide 30 mL UDC PO ×2 (08:20→16:29)
[2022-06-05] MEDS: carbidopa-levodopa 25-100mg Tablet 2 EACH PO ×3 (08:20→21:14)
[2022-06-05] MEDS: sulfaSALAzine 500 mg Tablet 1000 MG PO ×2 (08:27→17:22)
[2022-06-05] MEDS: TRAMadol 50 mg Tablet PO ×2 (09:16→16:29)
--- NOTE | 2022-06-05 09:47 | PC.CHAP ---
Pastoral Care Encounter/Spiritual Assessment Type of Contact [] Declined cafeteria director visit [] Patient/Family/Request visit [] Outpatient visit [] Follow-up visit [] Physician referral [] Code/Alert [] Routine visit [] Staff referral [] Actively dying [] Patient sleeping [] Family support [] [] Out of room [] Palliative care [] [] Receiving care in room [] Pre-surgical visit [] Trauma [] Long length of stay [] ICU visit [x] Other: Isolation Relational/Emotional Strength [] Patient feels connected with others/family/visitors/staff [] Distress [] Loneliness/isolation [] Abandonment Spirituality of Patient [] Person of Chela [] Attends Oriental Orthodox of their [place]a [] Believes in Prayer [] Reads Bible or Taoism materials [] There are Spiritual issues to be addressed Apartment Maintenance Technician Interventions [] Prayer [] Active listening [] Non-anxious presence [] Spiritual/emotional support [] Crisis/trauma care [] Spiritual counseling [] Bereavement support [] Provided bereavement packet [] Provided Bible/devotional materials [] Provided toy/stuffed animal, coloring book to patient or family member [] Provided Communion [] Anointing/[place] [] Salvation [] Completed spiritual assessment [] Other: Impact on Illness or Injury [] Angry [] Fearful [] Anxious [] Often cries [] Exhaustion [] Unable to work [] Unable to attend orthodoxy [] Unable to walk/stand [] Unable to read [] Unable to drive [] Unable to eat/drink [] Unable to sleep [] Unable to be with family [] Patient intubated [] Other: Summary Isolation Time spent with patient 5 mis
[2022-06-05 12:00] VITALS: BP 157/89; PULSE 70; RESP 19; TEMP 36.9; O2SAT 94
[2022-06-05] MEDS: bisacodyl 10 mg Supp PR (15:01)
[2022-06-05 16:00] VITALS: PULSE 68; RESP 16; TEMP 36.9; O2SAT 96
--- NOTE | 2022-06-05 18:40 | PM.PN ---
Subjective Subjective: Urology follow-up: Hospital day #3 Urine this morning looks clear. Manual irrigation yielded declining number of clots in his urine remained completely clear in between irrigations as well. CBI was turned off this morning and over the day especially with increasing activity try to have a bowel movement he started noticing increasing blood in the urine. No severe increase in clots with irrigation but clearly more bleeding. CBI was restarted. Based on these findings I recommended cystoscopy under anesthesia tomorrow possible fulguration clot evacuation. Explained the findings of patient and family in context of our multiple conversations leading up to this point. Our hope would been that conservative measures would have been enough but obviously that not the case at this point. Informed consent was obtained for the above procedure. We will plan on approximately 1 PM on 06/06/2022. Vitals/I&O/Wt Last Vital Signs Temp 98.5 F 06/05/22 16:00 Pulse 68 06/05/22 16:00 Resp 16 06/05/22 16:00 BP 157/89 06/05/22 12:00 Pulse Ox 96 06/05/22 16:00 O2 Del Method 06/05/22 04:00 06/05/22 06/05/22 06/05/22 06:59 14:59 22:59 Intake Total 1023.75 / 2830.00 360 / 360 720 / 1080 Output Total 950 / 2050 250 / 250 Balance 73.75 / 780.00 360 / 360 470 / 830 Weight last 48 hrs Weight 180 lb Physical Exam Narrative: Alert oriented no acute distress. Neck: Good range of motion Respiratory: No audible wheezes. Nonlabored respiration Cardiovascular: Regular rate and rhythm Abdomen: Soft nontender no palpable masses. Bladder not distended. :Catheter draining clear urine with much decreased CBI rate. (Later became red) Extremities good range of motion, no severe edema Neuro: Parkinson's tremor. Psychiatric: No confusion. Mental status normal Urinary Catheter Management: 3-way Urethral CBI: Cath Placed During This Visit: yes Reason for Continuing Indwelling Catheter: Acute Urinary Retention or Obstruction Urinary Catheter Date of Insertion: 06/03/22 Urinary Catheter Time of Insertion: 18:30 Data : 06/04/22 03:13 06/04/22 03:13 A&P Assessment and plan (1) Clot retention of urine: Initially looks good but over the day developed increasing hematuria. We will plan on cystoscopy under anesthesia possible fulguration clot evacuation Status: Acute (2) Irradiation cystitis with hematuria: Status: Acute (3) Malignant neoplasm of prostate: Status: Chronic (4) Anastomotic stricture of urinary tract: Urethrovesical anastomotic stricture Status: Chronic Plan To the operating room tomorrow afternoon for clot evacuation cystoscopy possible fulguration Attestations Medical Necessity Statement*: Still requiring CBI. Failed conservative management. Surgery tomorrow. Coding Level of Care Code Acute Phonograph Needle Tip Maker for Chg Fwd Diagnoses Clot retention of urine R33.8 Irradiation cystitis with hematuria N30.41 Malignant neoplasm of prostate C61 Anastomotic stricture of urinary tract N99.89 Time Spent (min) 55 Comment Total of 2 visits, chart review, documentation. Greater than 50% counseling
[2022-06-05 20:00] VITALS: BP 164/92; PULSE 69; RESP 18; TEMP 36.9; O2SAT 94
[2022-06-06] VITALS (14 sets, daily range): BP systolic 125–191; BP diastolic 76–109; PULSE 61–72; RESP 12–21; TEMP 36.4–36.8; O2SAT 91–96
[2022-06-06] MEDS: diclofenac 1% Topical Gel 100 gm 1 APPLIC TOPICAL ×3 (08:29→20:15)
[2022-06-06] MEDS: neomycin-poly-bacitracin oint 28 gm 1 APPLIC TOPICAL ×2 (08:29→18:39)
[2022-06-06] MEDS: sulfaSALAzine 500 mg Tablet 1000 MG PO ×2 (08:29→18:41)
--- NOTE | 2022-06-06 09:57 | P.ANESASSM_ITS ---
Pre-Anesthetic Assessment Height/Weight: Height 1.78 m Weight 81.647 kg Temp Pulse Resp BP Pulse Ox O2 Del Method 98.2 F 67 17 165/94 93 06/06/22 08:00 06/06/22 08:00 06/06/22 08:00 06/06/22 08:00 06/06/22 08:00 06/06/22 08:00 Preop Diagnosis: clot retention Operation Date: 06/06/22 13:20 Proposed Procedures p Cystoscopy with clot evacuation possible fulguration(Not Applicable) - Jose Chambers MD Familial anesthetic complications: none Was Beta Lexa taken within 24 hours: N/A Was Clonidine taken within 24 hours: N/A Social No alcohol and No tobacco Exam alert, oriented x 3, clear to auscultation bilaterally and regular rate & rhythm Airway Submandibular: within normal limits Cervical ROM: within normal limits Mallampati: Class III Dentition: full Pulmonary None reported CV/HEM Anemia METS = 4 Prostate cancer Paraphimosis Cystitis w/ hematuria Hepatic None reported GI Gastroesophageal Reflux Disease (Well controlled, no symptoms on an empty stomach ) Metabolic None reported Musc/skel Osteoarthritis/DJD and Rheumatoid Arthritis Neuropsych Parkinson Anesthetic Plan ASA status: 3 Anesthesia: Anesthesia Evaluation and General Other: We discussed risk and benefits of general anesthesia including PONV, sore throat (sometimes severe), corneal abrasion, positioning and peripheral nerve injuries, life threatening allergic reaction, post operative ICU admission requiring prolonged intubation, aspiration, stroke, heart attack, , and rare incidences of recall. Patient consents to proceed with general anesthesia. Risk of > 500 ml blood loss (7ml/kg in children): No Medications/Allergies Home Medications Medication Instructions Recorded Confirmed Last Taken Type Park's wort 300 mg capsule 300 mg PO QAM 06/04/20 06/04/22 04/04/22 History carbidopa 25 mg-levodopa 100 mg 2 tab PO TID 09/18/20 06/04/22 04/04/22 06:00 History tablet hydroxychloroquine 200 mg tablet 200 mg PO BID #180 tabs 03/20/22 06/04/22 04/04/22 06:00 Rx sulfasalazine 500 mg tablet 1 g PO BID #360 tabs 03/20/22 06/04/22 04/04/22 06:00 Rx tramadol 50 mg tablet 50 mg PO TID PRN pain #60 tabs 03/20/22 06/04/22 Unknown Rx calcium carbonate 500 mg calcium 500 mg PO DAILY 04/04/22 06/04/22 Unknown History (1,250 mg) tablet leflunomide 20 mg tablet 20 mg PO QAM 04/04/22 06/04/22 04/04/22 06:00 History lutein 1 cap PO DAILY 04/04/22 06/04/22 Unknown History vitamin B complex 1 tab PO TID 04/04/22 06/04/22 Unknown History cyanocobalamin (vitamin B-12) 1,000 mcg PO DAILY 06/04/22 06/04/22 Unknown History 1,000 mcg tablet (Vitamin B-12) Allergies Allergy/AdvReac Type Severity Reaction Status Date / Time adhesive tape Allergy Unknown Verified 06/03/22 15:27 Current Medications Generic Name Dose Route Start Last Admin Trade Name Freq PRN Reason Stop Dose Admin Carbidopa/Levodopa 2 each 06/03/22 21:00 06/06/22 08:29 Carbidopa-Levodopa 25-100mg Tablet PO Not Given TID LIT Diclofenac Sodium 1 applic 06/03/22 21:00 06/06/22 08:29 Diclofenac 1% Topical Gel 100 Gm TOPICAL 1 applic QID LIT Administration Hydromorphone HCl 1 mg 06/03/22 18:58 06/05/22 06:24 Hydromorphone 1 Mg/Ml Inj 1 Ml IVP 1 mg Q2H PRN Administration PAIN Sodium Chloride 1,000 mls @ 75 mls/hr 06/03/22 19:00 06/05/22 21:15 Sodium Chloride 0.45% IV 75 mls/hr .[id number] LIT Administration Magnesium Hydroxide 30 ml 06/04/22 19:36 06/05/22 16:29 Magnesium Hydroxide 30 Ml Udc PO 30 ml Q8H PRN Administration constipation Neomycin/Polymyxin/Bacitracin 1 applic 06/04/22 09:45 06/06/22 08:29 Cfvatzyp-Cbdq-Wfglpwwufv Oint 28 Gm TOPICAL 1 applic BID LIT Administration Non-Formulary Medication 20 mg 06/04/22 06:00 06/06/22 06:15 Leflunomide PO Not Given QAM LIT Sulfasalazine 1,000 mg 06/04/22 09:00 06/06/22 08:29 Sulfasalazine 500 Mg Tablet PO 1,000 mg BID LIT Administration Protocol Tramadol HCl 50 mg 06/03/22 18:48 06/05/22 16:29 Tramadol 50 Mg Tablet PO 50 mg Q8H PRN Administration MODERATE PAIN PFSH Anesthesia Medical History Adhesive capsulitis Arthralgia of both hands Biochemically recurrent malignant neoplasm of prostate High risk medication use Immunization counseling Inflammatory arthritis Osteoarthritis, generalized Parkinsons Prostate cancer PSA elevation Seronegative rheumatoid arthritis of both hands Surgical History History of cholecystectomy History of kidney surgery Family History Other CAD (coronary artery disease) Cancer Chronic kidney disease (CKD) Denies family history of Rheumatoid arthritis Diabetes Lupus Clotting disorder Dementia Hyperlipidemia Psychiatric illness Suicide Anesthesia complication Bleeding disorder Lung disease Hypertension Stroke Social History Smoking and tobacco status: never smoked Alcohol intake: never Marital status: Current occupational status: retired History of recent travel: No Data Anesthesia : 06/04/22 03:13 06/04/22 03:13 Cardiac Studies: 2 No Data to Display
--- NOTE | 2022-06-06 10:39 | ECG_ITS ---
[facility] Test Date: 2022-06-06 Pat Name: Gabriele Sommers Department: Room: 257 Gender: Male Infectious Disease Technician: : 1940 Requested By: Sunni Arrington Order Number: [id number] MD: Victor Hugo Sinha M.D. Measurements Intervals [place] Rate: 63 P: 30 DC: 178 QRS: -45 QRSD: 94 T: 11 QT: 407 QTc: 419 Interpretive Statements SINUS RHYTHM LEFT AXIS DEVIATION [QRS AXIS < -30] No previous ECG available for comparison Electronically Signed On 06-07-2022 9:19:37 CDT by Victor Hugo Sinha M.D. [id number]
[2022-06-06] MEDS: sodium chloride 0.45% 1,000 ML 75 ML IV (11:02)
[2022-06-06] MEDS: carbidopa-levodopa 25-100mg Tablet 2 EACH PO ×2 (13:00→20:15)
[2022-06-06] MEDS: sodium chloride 0.9% 1,000 ML 30 ML IV (13:02)
--- NOTE | 2022-06-06 13:06 | PM.PN ---
Subjective Subjective: Urology follow-up: Yesterday after moving around more, stopping the CBI, and attempted bowel movement he started having more blood in the urine. This required more manual irrigation as well as restarting the CBI. This continued through this morning with clots returned on manual irrigation. We talked about cystoscopy under anesthesia with clot evacuation possible fulguration yesterday and because of the persistence of clots today we will follow through with that. Procedure fully explained to the patient and his family. Informed consent was obtained. To the operating room today for cystoscopy, clot evacuation, fulguration. Medications: Reviewed: Yes Vitals/I&O/Wt Last Vital Signs Temp 97.7 F 06/06/22 12:46 Pulse 68 06/06/22 12:46 Resp 14 06/06/22 12:46 BP 183/109 06/06/22 12:46 Pulse Ox 94 06/06/22 12:46 O2 Del Method 06/06/22 12:46 06/05/22 06/06/22 06/06/22 22:59 06:59 14:59 Intake Total 2080 / 2440 1000 / 1000 Output Total 1150 / 1150 Balance 930 / 1290 1000 / 1000 Physical Exam Narrative: Alert oriented no acute distress. Respiratory: No audible wheezes. Nonlabored respiration Cardiovascular: Regular rate and rhythm Abdomen: Soft nontender no palpable masses. :Catheter draining pink urine. Catheter functioning well Extremities good range of motion, no severe edema Neuro: Parkinson's tremor. Not severe Psychiatric: No confusion. Mental status normal Urinary Catheter Management: 3-way Urethral CBI: Cath Placed During This Visit: yes Reason for Continuing Indwelling Catheter: Acute Urinary Retention or Obstruction Urinary Catheter Date of Insertion: 06/03/22 Urinary Catheter Time of Insertion: 18:30 Data : 06/04/22 03:13 06/04/22 03:13 A&P Assessment and plan (1) Prostate cancer: Status: Acute (2) Clot retention of urine: Status: Acute Attestations Medical Necessity Statement*: To the operating room today for evaluation under anesthesia via cystoscopy. Possible clot evacuation fulguration Coding Level of Care Code Acute University Relations Recruiter for Rahel Estrada Diagnoses Prostate cancer C61 Clot retention of urine R33.8
[2022-06-06] MEDS: levofloxacin-dextrose 5 % 500 MG/100 ML PREMIX 100 MG IV (13:07)
--- NOTE | 2022-06-06 13:10 | PM.OP ---
Operative Report Date of procedure: June 06, 2022 Pre-op diagnosis: Refractory gross hematuria clot retention Post-op diagnosis: Radiation cystitis with recurrent hematuria Procedure done: 1. Cystoscopy, clot evacuation 2. Fulguration of multiple radiation cystitis leading sites Surgeon: Reyes Estimated blood loss: Minimal Urine output: Not measured Complications: None Findings: Anesthesia: General Condition: Stable Disposition: PACU Small amount of clot in the bladder. Significant amount of radiation cystitis changes with hypervascularity in multiple areas of the bladder. Several areas with active but low flow oozing of blood. All sites well away from the orifices which were easily identified and avoided. No active bleeding from the urethrovesical anastomotic stricture. Brief History: Mr. Sommers is a delightful 82-year-old white male with a history of prostate cancer status post radiation therapy as an adjunct treatment for PSA recurrence post radical prostatectomy. 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 He has been utilizing SCIC for stricture patency maintenance. More recently started having recurrent gross hematuria with several episodes of clot retention requiring irrigation. Was hospitalized 3 days ago for moderate to severe gross hematuria with clot retention required large bore catheter for irrigation and then CBI. After clots were cleared CBI kept his urine clear but he would continue to form intermittently some small clots in the bladder which were easily managed with manual irrigation but there was enough persistent oozing that CBI being turned off led to trouble with maintenance of catheter patency. On initially we thought we would be able to manage this conservatively with CBI manual irrigation alone became apparent that we were not gaining ground and for that reason he was taken to the operating room today for clot evacuation and fulguration further assessment of the bladder wall Procedure: After routine preoperative evaluation examination and obtaining of informed consent he was taken to the operating suite on 06/06/2022 where general anesthesia was administered without difficulty after appropriate timeout was performed, SCDs confirmed to be functioning, preoperative antibiotics administered, beta-get protocol confirmed. Prepped and draped in the usual sterile fashion in dorsolithotomy position paying careful attention to avoiding pressure points. 21 Gambian cystoscope with 30 degree lens was introduced into the urethra meatus and advanced into the bladder without difficulty. The urethra had some mild inflammatory changes but nothing significant and no active bleeding. The anastomotic stricture was well dilated and easily bypassable with a 21 [place]ian scope. There was some clot in the bladder which was evacuated with irrigation through the scope. The bladder was then carefully inspected with both 30 and 70 degree lenses with findings of fairly diffuse radiation cystitis and several areas with active but low flow oozing of blood. The orifices were easily identified and well away from any active bleeding. Bugbee cautery probe was then utilized to fulgurate the actively bleeding areas for meticulous hemostasis. With the water turned off the bladder was inspected for several minutes with no recurrent bleeding. My general impression was that there were enough areas of radiation cystitis changes similar to the areas of active bleeding and I expect that this will be potentially an ongoing problem. The bladder was then drained with a 20 Gambian three-way Negron catheter with CBI initiated. Efflux was clear. Manual irrigation was conducted with no clots. He tolerated the procedure well without complications and was awakened in the operating room and returned to the recovery room in stable condition. PLANS: 1. Return to the floor with CBI running 2. Try to taper CBI as capable 3. Consultation for hyperbaric oxygen therapy for refractory bleeding related to radiation cystitis 4. Had a good discussion with the family regarding the findings and the need for trying to change the risk for bleeding by considering hyperbaric oxygen therapy.
--- NOTE | 2022-06-06 14:07 | ANE.PACU2 ---
Inpatient post-anesthesia follow up: Airway intact: Yes Vital signs: Temperature 98.1 F Pulse Rate 72 Respiratory Rate 16 Blood Pressure 146/84 Pulse Oximetry 95 Oxygen Delivery Me thod Room Air Oxygen Flow Rate Fraction of Inspir ed Oxygen Hydration adequate: Yes Nausea and vomiting: No Pain level: 1 Mental status: Baseline
[2022-06-06] MEDS: TRAMadol 50 mg Tablet PO (14:55)
[2022-06-06] MEDS: HYDROcodone-acetaminophen 5-325 mg Tablet 1 TAB PO (20:26)
[2022-06-07] MEDS: magnesium hydroxide 30 mL UDC PO ×2 (01:49→09:52)
[2022-06-07] MEDS: TRAMadol 50 mg Tablet PO ×2 (01:49→16:12)
[2022-06-07 02:06] VITALS: BP 160/81; PULSE 63; RESP 17; TEMP 36.4; O2SAT 93
[2022-06-07] MEDS: sodium chloride 0.45% 1,000 ML 75 ML IV ×2 (02:57→16:11)
[2022-06-07 04:00] VITALS: BP 168/80; PULSE 63; RESP 16; TEMP 36.9; O2SAT 92
[2022-06-07] MEDS: levoFLOXacin 500 mg Tablet PO (05:22)
[2022-06-07] MEDS: HYDROcodone-acetaminophen 5-325 mg Tablet 1 TAB PO ×2 (07:33→21:00)
[2022-06-07 08:00] VITALS: BP 135/75; PULSE 73; RESP 16; TEMP 36.4; O2SAT 93
--- NOTE | 2022-06-07 08:09 | PM.PN ---
Subjective Subjective: Postop day #1: Cystoscopy, clot evacuation, fulguration He experienced a lot of pain in the bladder area postop. Probably from distention from the procedure. Manual irrigation periodically throughout the night revealed no large clots. CBI has been required to keep urine clear. Not a high rate though. No fever or chills. No chest pain or shortness of breath. Discussed new strategy. Given the status of his radiation cystitis I do not think that it is reasonable to expect that he will have no blood in his urine. He may still have some small amount of generalized oozing and if he can keep a brisk urine output without a catheter in place I think there is a chance that we will actually reduce overall irritation by removing the catheter. Has had about 6 months of intermittent bleeding with just this 1 episode of severe bleeding. His urethrovesical anastomotic stricture as well dilated so I think he will be able to pass clots larger than what he had caused occlusion previously. He is on antibiotic therapy. Family felt encouraged to try having the catheter removed but understood that he may have to have it replaced if he has significant bleeding to impair his voiding. Filled his bladder with about 100 cc of CBI fluid while occluding the outlet. Balloon was deflated and catheter was removed without difficulty. He did have some spontaneous voiding of clear urine. Plan: 1. 6 bottle void 2. Frequent bladder scan checks PVRs to confirm adequate emptying 3. If stays clear throughout the day will consider discharge in the evening. If its marginal observe again overnight. Vitals/I&O/Wt Last Vital Signs Temp 98.4 F 06/07/22 04:00 Pulse 63 06/07/22 04:00 Resp 16 06/07/22 04:00 BP 168/80 06/07/22 04:00 Pulse Ox 92 06/07/22 04:00 O2 Del Method 06/06/22 16:00 06/06/22 06/07/22 06/07/22 22:59 06:59 14:59 Intake Total 360 / 1860 1240 / 3100 Balance 360 / 1860 1240 / 3100 Physical Exam Const: OTHER: Alert oriented no acute distress Still having some intermittent discomfort in the bladder area Neck/C-Spine: OTHER: Good range of motion. Lymph: OTHER: No severe lymphedema. No palpable lymphadenopathy Resp: OTHER: Unlabored. No audible wheezing GI: OTHER: Soft nontender no palpable masses bladder not distended : OTHER: Urine light pink on CBI at low rate Still has some ventral edema post paraphimosis. Not severe. Wound healing well. No evidence of infection Back/Pelvis: OTHER: No CVA tenderness Extremity: NARRATIVE EXTREMITY EXAM: Good range of motion, no severe edema Neuro: OTHER: No focal defects. Psych: OTHER: Frustrated. Urinary Catheter Management: 3-way Urethral CBI: Cath Placed During This Visit: yes, but has since been removed by the nurse Reason for Continuing Indwelling Catheter: Acute Urinary Retention or Obstruction Urinary Catheter Date of Insertion: 06/06/22 Urinary Catheter Time of Insertion: 13:46 Date Urinary Catheter Removed: 06/06/22 Time Urinary Catheter Discontinued: 13:10 Data : 06/04/22 03:13 06/04/22 03:13 A&P Assessment and plan (1) Clot retention of urine: Only small clots being formed now. Status: Acute (2) Irradiation cystitis with hematuria: I think he will require hyperbaric oxygen therapy. Status: Acute Plan 1. He is not having severe bleeding. I think his radiation cystitis will continue to intermittently bleed like it has been for roughly 6 months. While the catheter and irrigation seems to be helping preventing large clots, the kind that brought him into the clinic the other day, it may be contributing to ongoing irritation of areas of radiation cystitis changes. 2. I reviewed with him the option of taking the catheter out today if he demonstrates no further significant bleeding over the next couple of hours. I do expect with the catheter out he will still have some bleeding. You will be required not to do any heavy straining, will need to consume significant mount of fluid to have brisk urine output, and void on a regular basis to prevent clot accumulation. 3. Regarding his urethrovesical anastomotic stricture he is as dilated as he has been since its diagnosis. Hopefully this will allow easy passage of small clots that might form. 4. Hopefully taking the catheter out will reduce irritation, allow passage of small clots being formed via natural passage of urine, and facilitate discharge sooner than later. 5. Planning for hyperbaric oxygen therapy ongoing. Because of his chronic nature of recurrent bleeding and with this more severe episode of I think he will require hyperbaric oxygen to change the natural history of this process. Attestations Medical Necessity Statement*: Still requiring CBI. Coding Level of Care Code Acute Systems Integration Analyst for [employer] Diagnoses Clot retention of urine R33.8 Irradiation cystitis with hematuria N30.41 Time Spent (min) 60 Comment >50% [id number] counseling
[2022-06-07] MEDS: phenazopyridine 100 mg Tablet 200 MG PO ×3 (09:51→20:58)
[2022-06-07] MEDS: carbidopa-levodopa 25-100mg Tablet 2 EACH PO ×3 (09:51→20:57)
[2022-06-07] MEDS: sulfaSALAzine 500 mg Tablet 1000 MG PO ×2 (09:51→17:32)
[2022-06-07] MEDS: diclofenac 1% Topical Gel 100 gm 1 APPLIC TOPICAL ×2 (09:55→16:15)
[2022-06-07] MEDS: neomycin-poly-bacitracin oint 28 gm 1 APPLIC TOPICAL ×2 (09:57→17:29)
[2022-06-07 12:00] VITALS: BP 134/86; PULSE 75; RESP 13; TEMP 36.6; O2SAT 94
--- NOTE | 2022-06-07 13:50 | PC.SOCIAL ---
IMM update IMM updated with patient and family at bedside. Copy Pg 2 provided. Patient asked that sign for him. Initialled, dated, timed, and placed in chart.
[2022-06-07 16:00] VITALS: BP 127/79; PULSE 74; RESP 16; TEMP 36.9; O2SAT 92
[2022-06-07] MEDS: cefdinir 300 MG CAPSULE PO (17:28)
[2022-06-07 20:38] VITALS: BP 129/75; PULSE 75; RESP 15; TEMP 36.5; O2SAT 94
[2022-06-08 01:09] VITALS: BP 151/81; PULSE 66; RESP 18; TEMP 36.7; O2SAT 94
[2022-06-08 04:56] VITALS: BP 147/81; PULSE 62; RESP 15; TEMP 36.7; O2SAT 92
[2022-06-08] MEDS: TRAMadol 50 mg Tablet PO (05:11)
[2022-06-08] MEDS: sodium chloride 0.45% 1,000 ML 75 ML IV (05:15)
--- NOTE | 2022-06-08 07:34 | PM.DCS ---
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 Could not get the bladder cleared with catheter. Was using catheter for stricture patency maintenance program for anastomotic stricture. Also complaining of penile pain and was found to have paraphimosis. Treatment in the clinic prior to direct admission included aggressive bladder irrigation with several different catheters in order to clear clots. I could not manually reduce the paraphimosis and performed a modified circumcision with a relaxing vertical incision to ilsa the crisis. Through a Negron catheter was placed with initiation of CBI. That evening on the floor that catheter occluded. I placed a Paul 20 [place] three-way hematuria catheter and manually irrigated large amount of clot and restarted CBI. Overnight he required brisk CBI rates but substantially improved by the morning. Manual irrigation would reveal only a small amount of clot formation periodically but never reoccluding of his catheter. Unfortunately could not completely stop the process with CBI and manual irrigation and for that reason on 06/06/2022 he underwent cystoscopy, clot evacuation and fulguration under anesthesia. Bladder showed fairly prominent signs of radiation cystitis with multiple small areas of bleeding that were fulgurated. There was no severe bleeding but a fair percentage of the bladder wall was involved with radiation cystitis changes. CBI was reinitiated after return to the floor with essentially the same picture clinically as had been demonstrated preoperatively. On postop day #1 (06/07/2022) is Negron catheter was removed and a 6 bottle void with frequent PVR bladder scans was performed. The goal of this change in process was to reduce bladder irritation by taking the catheter out recognizing that other than the initial event that led to hospitalization he had had only small volume bleeding. While also in the past he had difficulty clearing the clots because of a tight bladder neck contracture/urethrovesical anastomotic stricture, his stricture was well dilated now having had at least a 20 [place] catheter in for couple days which should allow passage of even substantial clots if they did form. It was recognized that the catheter might be required again if bleeding was worse than anticipated. Thankfully he did very well with a catheter out. Urine remained clear. Frequent PVR showed no evidence of retention. He was experiencing some urgency and frequency at times with small voids. His baseline incontinence was also present. On 06/08/2022 he was deemed a good candidate for further convalescence at home. He was discharged in stable condition Physical Exam Const: OTHER: Alert oriented no acute distress Still having some intermittent discomfort in the bladder area Neck/C-Spine: OTHER: Good range of motion. Lymph: OTHER: No severe lymphedema. No palpable lymphadenopathy Resp: OTHER: Unlabored. No audible wheezing GI: OTHER: Soft nontender no palpable masses bladder not distended : OTHER: Urine light pink on CBI at low rate Still has some ventral edema post paraphimosis. Not severe. Wound healing well. No evidence of infection Back/Pelvis: OTHER: No CVA tenderness Extremity: NARRATIVE EXTREMITY EXAM: Good range of motion, no severe edema Neuro: OTHER: Parkinson's tremor. No change from baseline Psych: OTHER: Baseline Urinary Catheter Management: 3-way Urethral CBI: Cath Placed During This Visit: yes, but has since been removed by the nurse Reason for Continuing Indwelling Catheter: Acute Urinary Retention or Obstruction Urinary Catheter Date of Insertion: 06/06/22 Urinary Catheter Time of Insertion: 13:46 Date Urinary Catheter Removed: 06/06/22 Time Urinary Catheter Discontinued: 13:10 Discharge Data Studies Completed and Pending Laboratory Results WBC 4.0 10^3/uL (4.0-10.0) 06/04/22 03:13 RBC 3.39 10^6/uL (4.1-5.3) L 06/04/22 03:13 Hgb 10.3 g/dL (11.7-16.6) L 06/04/22 03:13 Hct 32.5 % (42.0-52.0) L 06/04/22 03:13 MCV 95.9 fl (80-94) H 06/04/22 03:13 MCH 30.4 pg (28.0-34.0) 06/04/22 03:13 MCHC 31.7 g/dL (30.0-36.0) 06/04/22 03:13 RDW 13.4 % (12.1-15.1) 06/04/22 03:13 Plt Count 128 10^3/cmm (130-400) L 06/04/22 03:13 MPV 10.1 fL (7.4-10.4) 06/04/22 03:13 Neut % (Auto) 72.2 % 06/04/22 03:13 Lymph % (Auto) 14.9 % 06/04/22 03:13 [place] % (Auto) 9.1 % 06/04/22 03:13 Eos % (Auto) 2.5 % 06/04/22 03:13 Baso % (Auto) 0.8 % 06/04/22 03:13 Neut # (Auto) 2.85 10^3/uL (1.8-7.7) 06/04/22 03:13 Lymph # (Auto) 0.6 10^3/uL (0.8-4.8) L 06/04/22 03:13 [place] # (Auto) 0.4 10^3/uL (0.2-0.9) 06/04/22 03:13 Eos # (Auto) 0.1 10^3/uL (0.0-0.8) 06/04/22 03:13 Baso # (Auto) 0.0 10^3/uL (0.0-0.1) 06/04/22 03:13 Nucleated RBC % (auto) 0 % 06/04/22 03:13 Nucleated RBCs # 0.0 /100WBC 06/04/22 03:13 Sodium 138 mmol/L (136-145) 06/04/22 03:13 Potassium 3.8 mmol/L (3.5-5.1) 06/04/22 03:13 Chloride 103 mmol/L (98-107) 06/04/22 03:13 Carbon Dioxide 26 mmol/L (22-29) 06/04/22 03:13 Anion Gap 12.8 (5-19) 06/04/22 03:13 BUN 17 mg/dL (8-23) 06/04/22 03:13 Creatinine 0.5 mg/dL (0.7-1.2) L 06/04/22 03:13 GFR Calculation Not Reportable 06/04/22 03:13 Glucose 119 mg/dL (65-115) H 06/04/22 03:13 Calculated Osmolality 289 mOsm/kg (285-295) 06/04/22 03:13 Calcium 8.7 mg/dL (8.5-10.5) 06/04/22 03:13 Vitals Last Vital Signs Temp 97.5 F L 06/07/22 08:00 Pulse 73 06/07/22 08:00 Resp 16 06/07/22 08:00 BP 135/75 06/07/22 08:00 Pulse Ox 93 06/07/22 08:00 O2 Del Method 06/07/22 08:00 Discharge Plan Discharge Patient Disposition: Home Condition: Stable Prescriptions: New cefdinir 300 mg capsule 300 mg PO BID 10 Days Qty: 20 0RF Continued [place]'s wort 300 mg capsule 300 mg PO QAM carbidopa-levodopa 25-100 mg tablet 2 tab PO TID tramadol 50 mg tablet 50 mg PO TID PRN (Reason: pain) Qty: 60 1RF hydroxychloroquine 200 mg tablet 200 mg PO BID Qty: 180 1RF sulfasalazine 500 mg tablet 1 g PO BID Qty: 360 0RF Rx Instructions: give with food (meal/snack) calcium carbonate 500 mg calcium (1,250 mg) Tablet 500 mg PO DAILY vitamin B complex Tablet 1 tab PO TID lutein 1 cap PO DAILY leflunomide 20 mg tablet 20 mg PO QAM Vitamin B-12 1,000 mcg Tablet 1,000 mcg PO DAILY Discharge Orders: Discharge Order (Routine); Ordered 06/07/22 Ordered By: Jose Chambers Referrals: Jose Chambers MD [Physician] - 1 month Rhonda Yousif MD [Primary Care Provider] - (Please call Saturday 06/09 to schedule a follow up appointment with Dr. Yousif.) Discharge Diet: Usual diet Discharge Activity: Limit activity as instructed Patient Instructions: Cystoscopy, Cefdinir (By mouth), Urinary Tract Infection in Men (ED), Opioid Safety Activity Restrictions/Additional Instructions: 1. Emps-mem-dystmgl Azo Standard for discomfort with voiding. It turns your urine orange and stain your clothing. Not required if no burning. 2. Continue to drink a lot of fluids for several days to keep your urine output high. 3. Avoid all straining. Use what ever is necessary to avoid constipation. Treat aggressively if present. 4. Prescription for antibiotics have been sent to the pharmacy. Discharge Attestations Time Spent in Discharge Care*: other Quality Metrics Clinical Quality Measures [ No reported AMI, CVA or VTE this stay] Coding Level of Care Code Acute g [facility] note Diagnoses Clot retention of urine R33.8 Irradiation cystitis with hematuria N30.41 Prostate cancer C61 Parkinsons G20 Paraphimosis N47.2 Inflammatory arthritis M19.90 High risk medication use Z79.899 Anastomotic stricture of urinary tract N99.89
[2022-06-08 07:42] VITALS: BP 149/86; PULSE 66; RESP 16; TEMP 36.4; O2SAT 91
[2022-06-08] MEDS: sulfaSALAzine 500 mg Tablet 1000 MG PO (08:18)
[2022-06-08] MEDS: phenazopyridine 100 mg Tablet 200 MG PO (08:19)
[2022-06-08] MEDS: carbidopa-levodopa 25-100mg Tablet 2 EACH PO (08:19)
[2022-06-08] MEDS: diclofenac 1% Topical Gel 100 gm 1 APPLIC TOPICAL (08:19)
[2022-06-08] MEDS: neomycin-poly-bacitracin oint 28 gm 1 APPLIC TOPICAL (08:20)
[2022-06-08] MEDS: cefdinir 300 MG CAPSULE PO (08:25)
[2022-06-08 09:19] VITALS: BP 149/86; PULSE 66; RESP 16; TEMP 36.4; O2SAT 91
== END 2022-06-08 09:10 | disposition home or self-care (01) | DRG 670 ==
PROVIDERS: Admitting Provider Urology; PCP Family Medicine; Visit Provider Urology
PROC: 0TJB8ZZ Inspection of Bladder, Via Natural or Artificial Opening Endoscopic (ICD-10-PCS; CPT 52000; principal; 2022-06-06 13:00)
PROC: 0T5B8ZZ Destruction of Bladder, Via Natural or Artificial Opening Endoscopic (ICD-10-PCS; 2022-06-06 13:00)
DX: N30.41 Irradiation cystitis with hematuria (principal); R33.8 Other retention of urine; N47.2 Paraphimosis; N99.89 Other postprocedural complications and disorders of genitourinary system; C61 Malignant neoplasm of prostate; R97.21 Rising PSA following treatment for malignant neoplasm of prostate; G20 Parkinson's disease; K21.9 Gastro-esophageal reflux disease without esophagitis; Z79.2 Long term (current) use of antibiotics; M13.80 Other specified arthritis, unspecified site; Z79.899 Other long term (current) drug therapy
CPT/HCPCS: 36415; 51702; 51798; 80048; 85025; 93005; G0378; G0379; J1170; J1956; J2270; J2543; J7030

== ENCOUNTER 2022-06-16 16:03 | Emergency (ER) | payer OTHER, MEDICARE, SELFPAY ==
[2022-06-16 16:13] VITALS: BP 164/92; PULSE 77; RESP 18; TEMP 36.6; O2SAT 96; BMI 25.8
--- NOTE | 2022-06-16 16:51 | W.ED.GENADLT ---
HPI - General Adult General: Chief complaint: General Medical Stated complaint: Unable to urinate Time Seen by Provider: 06/16/22 16:40 Source: patient Mode of arrival: ambulatory Limitations: no limitations History of Present Illness: 82-year-old male who presents to the emergency room directed here by his urologist. He has not been able to urinate since around 9 AM this morning. He told the nurse 11 AM. His is specifically states she said at 9 AM he was not able to void he became more progressively uncomfortable throughout the day she had attempted to do some irrigation at home got a few small clots over that only was able to get back blood-tinged urine. He has not had any fever sweats chills patient has a history of prostate cancer and is seen by Dr. Chambers. Dr. Chambers had called advising us patient becoming in. Onset (ago): hour(s) Location: abdomen Radiation: back Severity: moderate Quality: aching Pain Consistency: constant Relieving factors: none Exacerbating factors: none Associated symptoms: Deny chest pain, confusion, cough, diaphoresis, decreased appetite, dyspnea, fevers/chills, headache(s), malaise, nausea, rash, palpitations, seizures, short of breath, syncope, vomiting or weakness Review of Systems Const: Denies: fever(s), chills, malaise or diaphoresis Card: Denies: chest pain, palpitations or syncope Resp: Denies: dyspnea GI: Denies: nausea or vomiting Skin/Breast: Denies: rash Neuro: Denies: headache(s) or confusion PFS ED PFSH: Medical History Adhesive capsulitis Arthralgia of both hands Biochemically recurrent malignant neoplasm of prostate High risk medication use Immunization counseling Inflammatory arthritis Osteoarthritis, generalized Parkinsons Prostate cancer PSA elevation Seronegative rheumatoid arthritis of both hands Surgical History History of cholecystectomy History of kidney surgery Family History Other CAD (coronary artery disease) Cancer Chronic kidney disease (CKD) Denies family history of Rheumatoid arthritis Diabetes Lupus Clotting disorder Dementia Hyperlipidemia Psychiatric illness Suicide Anesthesia complication Bleeding disorder Lung disease Hypertension Stroke Social History Smoking and tobacco status: former smoker (smoked x 5 years) Alcohol intake: never Marital status: Current occupational status: retired History of recent travel: No Physical Exam Const: GENERAL APPEARANCE: cooperative ORIENTATION/CONSCIOUSNESS: Yes awake, Yes oriented to person, Yes oriented to place and Yes oriented to time HENMT: COMMON NORMALS: normocephalic, atraumatic and hearing grossly normal bilaterally HEAD & SCALP: normocephalic and atraumatic Resp: COMMON NORMALS: normal respiratory effort, No retractions, No use of accessory muscles and clear to auscultation bilaterally AUSCULTATION: clear to auscultation bilaterally Cardio: COMMON NORMALS: regular rate, regular rhythm and No murmurs present (Cardio) RATE: regular rate RHYTHM: regular rhythm GI: COMMON NORMALS: Soft to palpation and No hepatosplenomegaly present AUSCULTATION: Yes normoactive bowel sounds PALPATION: Yes Soft to palpation, No Tenderness to palpation present (GI), No Guarding due to palpation present (GI) and Yes No hepatosplenomegaly present Extremity: COMMON NORMALS: normal to inspection, capillary refill normal, no clubbing, cyanosis or edema, no calf tenderness and no pedal edema Neuro: SENSORIUM/ORIENTATION: Yes oriented to person, Yes oriented to place and Yes oriented to time Skin: COMMON NORMALS: no rashes or lesions noted GENERAL SKIN EXAM: no rashes or lesions noted Course Vital Signs: Vital signs: Vital Signs Temperature 97.9 F 06/16/22 16:13 Pulse Rate 69 06/16/22 18:21 Respiratory Rate 16 06/16/22 18:21 Blood Pressure 164/92 06/16/22 16:13 Pulse Oximetry 93 06/16/22 18:21 Oxygen Delivery Me thod 06/16/22 16:13 [facility] - General Adult Medical Decision Making Dr. Chambers was consulted in the emergency room he placed a catheter successfully and irrigated the bladder only small amount of blood came out. Catheter was removed. Dr. Chambers advised patient on irrigation of bladder at home and gave him supplies with a 16 [place] Couvelaire hematuria catheter. Follow-up with Dr. Chambers as scheduled. Return if his inability to urinate or increasing hematuria. Medical Records I reviewed the patient's medical records. Lab Data I reviewed the patient's lab results. Discharge Plan Discharge Patient Disposition: Home Clinical Impression: Prostate cancer, Hematuria Condition: Stable Prescriptions: No Action [place]'s wort 300 mg capsule 300 mg PO QAM carbidopa-levodopa 25-100 mg tablet 2 tab PO TID tramadol 50 mg tablet 50 mg PO TID PRN (Reason: pain) Qty: 60 1RF hydroxychloroquine 200 mg tablet 200 mg PO BID Qty: 180 1RF sulfasalazine 500 mg tablet 1 g PO BID Qty: 360 0RF Rx Instructions: give with food (meal/snack) leflunomide 20 mg tablet 20 mg PO QAM Qty: 30 3RF calcium carbonate 500 mg calcium (1,250 mg) Tablet 500 mg PO DAILY vitamin B complex Tablet 1 tab PO TID lutein 1 cap PO DAILY Vitamin B-12 1,000 mcg Tablet 1,000 mcg PO DAILY Discharge Orders: Discharge ED (Routine); Ordered 06/16/22 Ordered By: Felix Uribe Referrals: Rhonda Yousif MD [Primary Care Provider] - Discharge Diet: Usual diet Discharge Activity: Increase activity as tolerated Patient Instructions: Opioid Safety Activity Restrictions/Additional Instructions: Follow-up with Dr. Chambers as previously scheduled. If you have difficulty urinating or are unable to urinate or pass more clots either contact Dr. Chambers or come to the emergency room. Coding Level of Care Code ED Pharmacy Laboratory Technician for [facility] Fwd Exam Detailed
--- NOTE | 2022-06-16 17:48 | PM.CONSULT ---
Providers/Reason For Consult Consulting Physician/Specialty*: Urology/Chambers Reason for Consult*: Recurrent gross hematuria with clot retention Requesting Physician: ED Primary Care Provider: Rhonda Yousif MD History of Present Illness History of Present Illness Gabriele Sommers is a 82 year old male well-known to me for history of complicated radiation cystitis with recurrent bleeding and clot retention. Further complicated by a urethrovesical anastomotic stricture post radical prostatectomy. He had persistence of elevated PSA post prostatectomy and underwent radiation therapy. Was recently hospitalized for about 5 days for management of clot retention including CBI, manual irrigation, and cystoscopy with fulguration. At cystoscopy he was discovered to have fairly diffuse and active radiation cystitis but no severe bleeding. Ultimately was decided to take the catheter out, pushes fluid intake at home, in and out cath as needed for irrigation at home and also periodically for stricture patency maintenance related to the urethrovesical anastomotic stricture. A consult has been sent for hyperbaric oxygen therapy. We are waiting on approval at this time apparently. He had been doing well at home but then developed some increasing hematuria and difficulty voiding. His diligently tried to clear the clots with manual irrigation was able to achieve some but still he felt full. Scented to the emergency department for further evaluation. Prior to my arrival in the ER he spontaneously voided some clots and a large amount of urine and had relief. Procedure: Bladder irrigation with hematuria catheter An 18 [place] Couvelaire hematuria catheter was attempted to be advanced into the bladder but was unsuccessful due to his anastomotic stricture. A 16 [place] catheter was then placed without difficulty and the bladder manually irrigated. Only a very few small clots returned and yellow urine. Catheter was removed due to no active bleeding at this time. Recommendations: Encouraged increasing his fluid intake even more for the immediate future. He is to call tomorrow to check on status of hyperbaric oxygen treatment. Also has been having trouble getting an appointment and follow-up with oncology. Apparently scheduling problem. He was provided with a 16 [place] Couvelaire hematuria catheter to use as an In-N-Out catheter for irrigation as needed. They are very familiar catheter care for [facility]. Review of Systems Const: Denies: fever(s) or chills Eyes: Denies: change in vision ENMT: Denies: hoarseness Card: Denies: chest pain or palpitations Resp: Denies: dyspnea or productive cough GI: Reports: abdominal pain (With bladder distention only. Resolved after voiding.) : Reports: other (As above) Neuro: Reports: other (Parkinson's tremor) Psych: Reports: depression; Denies: memory loss David/Lymph: Reports: easy bleeding Medications/Allergies Home Medications Medication Instructions Recorded Confirmed Last Taken Type [place] wort 300 mg capsule 300 mg PO QAM 06/04/20 06/04/22 04/04/22 History carbidopa 25 mg-levodopa 100 mg 2 tab PO TID 09/18/20 06/04/22 04/04/22 06:00 History tablet hydroxychloroquine 200 mg tablet 200 mg PO BID #180 tabs 03/20/22 06/04/22 04/04/22 06:00 Rx sulfasalazine 500 mg tablet 1 g PO BID #360 tabs 03/20/22 06/04/22 04/04/22 06:00 Rx tramadol 50 mg tablet 50 mg PO TID PRN pain #60 tabs 03/20/22 06/04/22 Unknown Rx calcium carbonate 500 mg calcium 500 mg PO DAILY 04/04/22 06/04/22 Unknown History (1,250 mg) tablet leflunomide 20 mg tablet 20 mg PO QAM 04/04/22 06/04/22 04/04/22 06:00 History lutein 1 cap PO DAILY 04/04/22 06/04/22 Unknown History vitamin B complex 1 tab PO TID 04/04/22 06/04/22 Unknown History cyanocobalamin (vitamin B-12) 1,000 mcg PO DAILY 06/04/22 06/04/22 Unknown History 1,000 mcg tablet (Vitamin B-12) cefdinir 300 mg capsule 300 mg PO BID 10 days #20 caps 06/07/22 Unknown Rx Allergies Allergy/AdvReac Type Severity Reaction Status Date / Time adhesive tape Allergy Unknown Verified 06/03/22 15:27 PFSH Acute PFSH: Medical History (Updated 06/16/22 @ 17:57 by Jose Chambers MD) Adhesive capsulitis Arthralgia of both hands Biochemically recurrent malignant neoplasm of prostate High risk medication use Immunization counseling Inflammatory arthritis Osteoarthritis, generalized Parkinsons Prostate cancer PSA elevation Seronegative rheumatoid arthritis of both hands Surgical History History of cholecystectomy History of kidney surgery Family History Other CAD (coronary artery disease) Cancer Chronic kidney disease (CKD) Denies family history of Rheumatoid arthritis Diabetes Lupus Clotting disorder Dementia Hyperlipidemia Psychiatric illness Suicide Anesthesia complication Bleeding disorder Lung disease Hypertension Stroke Social History Smoking and tobacco status: never smoked Alcohol intake: never Marital status: Current occupational status: retired History of recent travel: No Vitals/I&O/Wt Last Vital Signs Temp 97.9 F 06/16/22 16:13 Pulse 77 06/16/22 16:13 Resp 18 06/16/22 16:13 BP 164/92 06/16/22 16:13 Pulse Ox 96 06/16/22 16:13 O2 Del Method 06/16/22 16:13 Weight last 48 hrs Weight 180 lb Physical Exam Const: COMMON NORMALS: no acute distress, alert and well nourished GENERAL APPEARANCE: well kempt and well developed ORIENTATION/CONSCIOUSNESS: not confused HENMT: COMMON NORMALS: normocephalic HEAD & SCALP: normal to inspection and normocephalic Eye: COMMON NORMALS: conjunctivae normal and no scleral icterus CONJUNCTIVA: Yes conjunctivae normal Neck/C-Spine: GENERAL: Yes normal visual inspection Resp: COMMON NORMALS: normal respiratory effort EFFORT & INSPECTION: Yes able to speak in complete sentences, No labored and No Actively coughing : COMMON NORMALS: Yes no CVA tenderness, Yes normal external exam, Yes Testes normal, Yes scrotum normal and Yes no scrotal swelling BLADDER/KIDNEY EXAM: Yes no CVA tenderness OTHER: Status post emergent dorsal slit circumcision for paraphimosis. Healing well. Decreased ventral edema. 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 Follow-up as scheduled. 2. We will pursue status of consult for hyperbaric oxygen therapy. We will also pursue status of the recommended scheduled follow-up with Dr. Quintero's office. 3. Continue manual irrigation as needed. Return to the emergency department if refractory retention develops again. Consult Attestations Medical Necessity Statement: Able to be discharged from the ED today. Coding Level of Care Code Acute Director Clinical Information Services for [facility] Fwd Diagnoses Prostate cancer C61 Irradiation cystitis with hematuria N30.41 Anastomotic stricture of urinary tract N99.89 Clot retention of urine R33.8
--- NOTE | 2022-06-16 18:20 | PC.NURSE ---
16 fr couvaire oropeza placed by DR sanchez bladder irrigated and then removed.
[2022-06-16 18:21] VITALS: PULSE 69; RESP 16; O2SAT 93
== END 2022-06-16 18:23 | disposition home or self-care (01) ==
PROVIDERS: Emergency Provider Family Medicine; PCP Family Medicine
DX: R31.9 Hematuria, unspecified (principal); C61 Malignant neoplasm of prostate; Z87.891 Personal history of nicotine dependence; G20 Parkinson's disease
CPT/HCPCS: 99283

== ENCOUNTER 2022-06-20 16:07 | Outpatient (CLI) | payer OTHER, SELFPAY ==
--- NOTE | 2022-06-20 16:38 | XRR_ITS ---
PROCEDURE INFORMATION: Exam: XR Chest Exam date and time: 06/20/2022 4:42 PM Age: 82 years old Clinical indication: Shortness of breath; Patient HX: Prostate CA; Additional info: Screen for hyperbaric oxygen treatment R/O bolus disease TECHNIQUE: Imaging protocol: Radiologic exam of the chest. Views: 2 views. PA and Lateral COMPARISON: CR XR chest 2V* [id number] 05/04/2020 1:59 PM FINDINGS: Lungs: There are normal lung volumes without interstitial or airspace opacities. Pleural spaces: There are no pleural effusions or pneumothorax. Heart/Mediastinum: The heart size is normal. The pulmonary vasculature is normal. There is a mildly tortuous thoracic aorta. The trachea is in the midline. Bones/joints: No acute abnormalities. Confluent small degenerative osteophytes and mild degenerative disc disease changes are seen mid to lower thoracic spine. Surgical clips are seen in the right upper quadrant of the abdomen, likely related to prior cholecystectomy. XR/XR chest 2V* [id number] IMPRESSION: No chest radiographic evidence of acute cardiopulmonary disease.
== END 2022-06-20 16:08 | disposition home or self-care (01) ==
PROVIDERS: PCP Family Medicine; Visit Provider Surgery
DX: Z13.6 Encounter for screening for cardiovascular disorders (principal); N30.01 Acute cystitis with hematuria
CPT/HCPCS: 71046; 99212

== ENCOUNTER → 2022-06-25 09:18 | Outpatient (BNVA) | payer OTHER, SELFPAY | PROVIDERS: PCP Family Medicine; Visit Provider Nurse Practitioner Family | DX: L59.8 Other specified disorders of the skin and subcutaneous tissue related to radiation (principal); Y84.2 Radiological procedure and radiotherapy as the cause of abnormal reaction of the patient, or of later complication, without mention of misadventure at the time of the procedure | CPT/HCPCS: G0277 ==

== ENCOUNTER 2022-06-26 08:19 | Oncology outpatient (recurring) (ONCR) | payer OTHER, SELFPAY ==
[2022-06-26] MEDS: leuprolide 22.5 mg Kit IM (14:47)
== END 2022-07-11 23:59 | disposition home or self-care (01) ==
PROVIDERS: Nurse Practitioner; PCP Family Medicine; Visit Provider Internal Medicine Hematology & Oncology
DX: Z79.818 Long term (current) use of other agents affecting estrogen receptors and estrogen levels (principal); Z87.891 Personal history of nicotine dependence; C61 Malignant neoplasm of prostate; R97.21 Rising PSA following treatment for malignant neoplasm of prostate; N30.41 Irradiation cystitis with hematuria; Y84.2 Radiological procedure and radiotherapy as the cause of abnormal reaction of the patient, or of later complication, without mention of misadventure at the time of the procedure; M15.9 Polyosteoarthritis, unspecified
CPT/HCPCS: 36415; 84153; 96402; 99214; 99215; G0277; J9217

== ENCOUNTER → 2022-06-27 10:38 | Outpatient (BNVA) | payer OTHER, SELFPAY | PROVIDERS: PCP Family Medicine; Visit Provider Nurse Practitioner Family | DX: N30.41 Irradiation cystitis with hematuria (principal); L59.8 Other specified disorders of the skin and subcutaneous tissue related to radiation; Y84.2 Radiological procedure and radiotherapy as the cause of abnormal reaction of the patient, or of later complication, without mention of misadventure at the time of the procedure | CPT/HCPCS: G0277 ==

== ENCOUNTER → 2022-06-30 08:51 | Outpatient (BNVA) | payer OTHER, SELFPAY | PROVIDERS: PCP Family Medicine; Referring Provider Thoracic Surgery (Cardiothoracic Vascular Surgery); Visit Provider Thoracic Surgery (Cardiothoracic Vascular Surgery) | DX: N30.41 Irradiation cystitis with hematuria (principal); L59.8 Other specified disorders of the skin and subcutaneous tissue related to radiation; Y84.2 Radiological procedure and radiotherapy as the cause of abnormal reaction of the patient, or of later complication, without mention of misadventure at the time of the procedure | CPT/HCPCS: G0277 ==

== ENCOUNTER → 2022-07-01 08:38 | Outpatient (BNVA) | payer OTHER, SELFPAY | PROVIDERS: PCP Family Medicine; Visit Provider Thoracic Surgery (Cardiothoracic Vascular Surgery) | DX: N30.41 Irradiation cystitis with hematuria (principal); L59.8 Other specified disorders of the skin and subcutaneous tissue related to radiation; Y84.2 Radiological procedure and radiotherapy as the cause of abnormal reaction of the patient, or of later complication, without mention of misadventure at the time of the procedure | CPT/HCPCS: G0277 ==

== ENCOUNTER 2022-07-07 08:18 | Outpatient (CLI) | payer OTHER, SELFPAY ==
--- NOTE | 2022-07-07 08:45 | US_ITS ---
WS: [id number] RENAL ULTRASOUND HISTORY: HX OF KIDNEY MASS PROSTATE CA/HEMATURIA URINARY RETENTION COMPARISON: 03/27/2017 TECHNIQUE: 2-D and color Doppler imaging of the kidney submitted. Right kidney: 8.1 cm x 6.2 cm x 5.2 cm. RIGHT kidney is difficult to image. The entire kidney has probably not been evaluated well. The corti manuela medullary differentiation is decreased but this is probably due to difficulty imaging the kidney. No hydronephrosis. Left kidney: 13.6 cm x 6.5 cm x 4.3 cm. Normal size kidney. Normal cortical medullary differentiation. Simple cyst inferior kidney measures 3 .5 x 3.9 x 3.4 cm. No hydronephrosis. No solid mass. Aorta: Normal. Urinary Bladder: Poorly distended bladder. US/US renal BI* [id number] IMPRESSION: 1. Simple cyst LEFT kidney with a maximum diameter of 3.9 cm. 2. RIGHT kidney is very poorly visualized and imaged. Kidney appears small and echogenic. If patient is having symptoms of urinary tract infections or hematu josafat consider follow-up renal mass CT protocol.
== END 2022-07-07 08:19 | disposition home or self-care (01) ==
PROVIDERS: PCP Family Medicine; Visit Provider Family Medicine
DX: N30.41 Irradiation cystitis with hematuria (principal); L59.8 Other specified disorders of the skin and subcutaneous tissue related to radiation; Y84.2 Radiological procedure and radiotherapy as the cause of abnormal reaction of the patient, or of later complication, without mention of misadventure at the time of the procedure
CPT/HCPCS: 76770; G0277; J2704

== ENCOUNTER → 2022-07-08 08:23 | Outpatient (BNVA) | payer OTHER, SELFPAY | PROVIDERS: PCP Family Medicine; Visit Provider Nurse Practitioner Family | DX: N30.41 Irradiation cystitis with hematuria (principal); L59.8 Other specified disorders of the skin and subcutaneous tissue related to radiation; Y84.2 Radiological procedure and radiotherapy as the cause of abnormal reaction of the patient, or of later complication, without mention of misadventure at the time of the procedure | CPT/HCPCS: G0277 ==

== ENCOUNTER → 2022-07-09 08:05 | Outpatient (BNVA) | payer OTHER, SELFPAY | PROVIDERS: PCP Family Medicine; Visit Provider Thoracic Surgery (Cardiothoracic Vascular Surgery) | DX: N30.41 Irradiation cystitis with hematuria (principal); L59.8 Other specified disorders of the skin and subcutaneous tissue related to radiation; Y84.2 Radiological procedure and radiotherapy as the cause of abnormal reaction of the patient, or of later complication, without mention of misadventure at the time of the procedure | CPT/HCPCS: G0277 ==

== ENCOUNTER → 2022-07-10 07:56 | Outpatient (BNVA) | payer OTHER, SELFPAY | PROVIDERS: PCP Family Medicine; Visit Provider Nurse Practitioner Family | DX: N30.41 Irradiation cystitis with hematuria (principal); L59.8 Other specified disorders of the skin and subcutaneous tissue related to radiation; Y84.2 Radiological procedure and radiotherapy as the cause of abnormal reaction of the patient, or of later complication, without mention of misadventure at the time of the procedure | CPT/HCPCS: G0277 ==

== ENCOUNTER → 2022-07-10 13:05 | Outpatient (BNVA) | payer OTHER, SELFPAY | PROVIDERS: PCP Family Medicine; Visit Provider Internal Medicine Rheumatology | DX: M06.041 Rheumatoid arthritis without rheumatoid factor, right hand (principal); M06.042 Rheumatoid arthritis without rheumatoid factor, left hand; Z79.899 Other long term (current) drug therapy; Z71.89 Other specified counseling; D64.9 Anemia, unspecified; Z90.79 Acquired absence of other genital organ(s); N32.0 Bladder-neck obstruction; N99.89 Other postprocedural complications and disorders of genitourinary system; R33.8 Other retention of urine; N30.41 Irradiation cystitis with hematuria; N02.9 Recurrent and persistent hematuria with unspecified morphologic changes; Y84.2 Radiological procedure and radiotherapy as the cause of abnormal reaction of the patient, or of later complication, without mention of misadventure at the time of the procedure; Z92.3 Personal history of irradiation; Z92.23 Personal history of estrogen therapy; Z85.46 Personal history of malignant neoplasm of prostate | CPT/HCPCS: 36415; 82728; 83540; 83550; 85025; 99214 ==

== ENCOUNTER → 2022-07-11 07:59 | Outpatient (BNVA) | payer OTHER, SELFPAY | PROVIDERS: PCP Family Medicine; Visit Provider Surgery | DX: N30.41 Irradiation cystitis with hematuria (principal); L59.8 Other specified disorders of the skin and subcutaneous tissue related to radiation; Y84.2 Radiological procedure and radiotherapy as the cause of abnormal reaction of the patient, or of later complication, without mention of misadventure at the time of the procedure | CPT/HCPCS: G0277 ==

== ENCOUNTER → 2022-07-14 07:55 | Outpatient (BNVA) | payer OTHER, SELFPAY | PROVIDERS: PCP Family Medicine; Visit Provider Thoracic Surgery (Cardiothoracic Vascular Surgery) | DX: N30.41 Irradiation cystitis with hematuria (principal); L59.8 Other specified disorders of the skin and subcutaneous tissue related to radiation; Y84.2 Radiological procedure and radiotherapy as the cause of abnormal reaction of the patient, or of later complication, without mention of misadventure at the time of the procedure | CPT/HCPCS: G0277 ==

== ENCOUNTER → 2022-07-15 08:14 | Outpatient (BNVA) | payer OTHER, SELFPAY | PROVIDERS: PCP Family Medicine; Visit Provider Nurse Practitioner Family | DX: N30.41 Irradiation cystitis with hematuria (principal); L59.8 Other specified disorders of the skin and subcutaneous tissue related to radiation; Y84.2 Radiological procedure and radiotherapy as the cause of abnormal reaction of the patient, or of later complication, without mention of misadventure at the time of the procedure | CPT/HCPCS: G0277 ==

== ENCOUNTER → 2022-07-16 07:59 | Outpatient (BNVA) | payer OTHER, SELFPAY | PROVIDERS: PCP Family Medicine; Visit Provider Thoracic Surgery (Cardiothoracic Vascular Surgery) | DX: N30.41 Irradiation cystitis with hematuria (principal); L59.8 Other specified disorders of the skin and subcutaneous tissue related to radiation; Y84.2 Radiological procedure and radiotherapy as the cause of abnormal reaction of the patient, or of later complication, without mention of misadventure at the time of the procedure | CPT/HCPCS: G0277 ==

== ENCOUNTER → 2022-07-17 07:59 | Outpatient (BNVA) | payer OTHER, SELFPAY | PROVIDERS: PCP Family Medicine; Visit Provider Nurse Practitioner Family | DX: N30.41 Irradiation cystitis with hematuria (principal); L59.8 Other specified disorders of the skin and subcutaneous tissue related to radiation; Y84.2 Radiological procedure and radiotherapy as the cause of abnormal reaction of the patient, or of later complication, without mention of misadventure at the time of the procedure | CPT/HCPCS: G0277 ==

== ENCOUNTER → 2022-07-18 08:03 | Outpatient (BNVA) | payer OTHER, SELFPAY | PROVIDERS: PCP Family Medicine; Visit Provider Nurse Practitioner Family | DX: N30.41 Irradiation cystitis with hematuria (principal); L59.8 Other specified disorders of the skin and subcutaneous tissue related to radiation; Y84.2 Radiological procedure and radiotherapy as the cause of abnormal reaction of the patient, or of later complication, without mention of misadventure at the time of the procedure | CPT/HCPCS: G0277 ==

== ENCOUNTER → 2022-07-21 08:07 | Outpatient (BNVA) | payer OTHER, SELFPAY | PROVIDERS: PCP Family Medicine; Visit Provider Thoracic Surgery (Cardiothoracic Vascular Surgery) | DX: N30.41 Irradiation cystitis with hematuria (principal); L59.8 Other specified disorders of the skin and subcutaneous tissue related to radiation; Y84.2 Radiological procedure and radiotherapy as the cause of abnormal reaction of the patient, or of later complication, without mention of misadventure at the time of the procedure | CPT/HCPCS: G0277 ==

== ENCOUNTER → 2022-07-22 07:50 | Outpatient (BNVA) | payer OTHER, SELFPAY | PROVIDERS: PCP Family Medicine; Visit Provider Nurse Practitioner Family | DX: N30.41 Irradiation cystitis with hematuria (principal); L59.8 Other specified disorders of the skin and subcutaneous tissue related to radiation; Y84.2 Radiological procedure and radiotherapy as the cause of abnormal reaction of the patient, or of later complication, without mention of misadventure at the time of the procedure | CPT/HCPCS: G0277 ==

== ENCOUNTER → 2022-07-23 08:22 | Outpatient (BNVA) | payer OTHER, SELFPAY | PROVIDERS: PCP Family Medicine; Visit Provider Thoracic Surgery (Cardiothoracic Vascular Surgery) | DX: N30.41 Irradiation cystitis with hematuria (principal); L59.8 Other specified disorders of the skin and subcutaneous tissue related to radiation; Y84.2 Radiological procedure and radiotherapy as the cause of abnormal reaction of the patient, or of later complication, without mention of misadventure at the time of the procedure | CPT/HCPCS: G0277 ==

== ENCOUNTER → 2022-07-24 08:15 | Outpatient (BNVA) | payer OTHER, SELFPAY | PROVIDERS: PCP Family Medicine; Visit Provider Nurse Practitioner Family | DX: N30.41 Irradiation cystitis with hematuria (principal); L59.8 Other specified disorders of the skin and subcutaneous tissue related to radiation; Y84.2 Radiological procedure and radiotherapy as the cause of abnormal reaction of the patient, or of later complication, without mention of misadventure at the time of the procedure | CPT/HCPCS: G0277 ==

== ENCOUNTER → 2022-07-28 08:09 | Outpatient (BNVA) | payer OTHER, SELFPAY | PROVIDERS: PCP Family Medicine; Visit Provider Nurse Practitioner Family | DX: N30.41 Irradiation cystitis with hematuria (principal); L59.8 Other specified disorders of the skin and subcutaneous tissue related to radiation; Y84.2 Radiological procedure and radiotherapy as the cause of abnormal reaction of the patient, or of later complication, without mention of misadventure at the time of the procedure | CPT/HCPCS: G0277 ==

== ENCOUNTER → 2022-07-29 08:10 | Outpatient (BNVA) | payer OTHER, SELFPAY | PROVIDERS: PCP Family Medicine; Visit Provider Nurse Practitioner Family | DX: N30.41 Irradiation cystitis with hematuria (principal); L59.8 Other specified disorders of the skin and subcutaneous tissue related to radiation; Y84.2 Radiological procedure and radiotherapy as the cause of abnormal reaction of the patient, or of later complication, without mention of misadventure at the time of the procedure | CPT/HCPCS: G0277 ==

== ENCOUNTER → 2022-07-30 08:04 | Outpatient (BNVA) | payer OTHER, SELFPAY | PROVIDERS: PCP Family Medicine; Visit Provider Thoracic Surgery (Cardiothoracic Vascular Surgery) | DX: N30.41 Irradiation cystitis with hematuria (principal); L59.8 Other specified disorders of the skin and subcutaneous tissue related to radiation; Y84.2 Radiological procedure and radiotherapy as the cause of abnormal reaction of the patient, or of later complication, without mention of misadventure at the time of the procedure | CPT/HCPCS: G0277 ==

== ENCOUNTER → 2022-07-31 08:14 | Outpatient (BNVA) | payer OTHER, SELFPAY | PROVIDERS: PCP Family Medicine; Visit Provider Nurse Practitioner Family | DX: N30.41 Irradiation cystitis with hematuria (principal); L59.8 Other specified disorders of the skin and subcutaneous tissue related to radiation; Y84.2 Radiological procedure and radiotherapy as the cause of abnormal reaction of the patient, or of later complication, without mention of misadventure at the time of the procedure | CPT/HCPCS: G0277 ==

== ENCOUNTER → 2022-08-01 08:48 | Outpatient (BNVA) | payer OTHER, SELFPAY | PROVIDERS: PCP Family Medicine; Visit Provider Urology | DX: N30.41 Irradiation cystitis with hematuria (principal) | CPT/HCPCS: 81003; 87086 ==

== ENCOUNTER → 2022-08-04 07:56 | Outpatient (BNVA) | payer OTHER, SELFPAY | PROVIDERS: PCP Family Medicine; Visit Provider Thoracic Surgery (Cardiothoracic Vascular Surgery) | DX: N30.41 Irradiation cystitis with hematuria (principal); L59.8 Other specified disorders of the skin and subcutaneous tissue related to radiation; Y84.2 Radiological procedure and radiotherapy as the cause of abnormal reaction of the patient, or of later complication, without mention of misadventure at the time of the procedure | CPT/HCPCS: G0277 ==

== ENCOUNTER → 2022-08-05 07:53 | Outpatient (BNVA) | payer OTHER, SELFPAY | PROVIDERS: PCP Family Medicine; Visit Provider Nurse Practitioner Family | DX: N30.41 Irradiation cystitis with hematuria (principal); L59.8 Other specified disorders of the skin and subcutaneous tissue related to radiation; Y84.2 Radiological procedure and radiotherapy as the cause of abnormal reaction of the patient, or of later complication, without mention of misadventure at the time of the procedure | CPT/HCPCS: G0277 ==

== ENCOUNTER → 2022-08-06 07:58 | Outpatient (BNVA) | payer OTHER, SELFPAY | PROVIDERS: PCP Family Medicine; Visit Provider Thoracic Surgery (Cardiothoracic Vascular Surgery) | DX: N30.41 Irradiation cystitis with hematuria (principal); L59.8 Other specified disorders of the skin and subcutaneous tissue related to radiation; Y84.2 Radiological procedure and radiotherapy as the cause of abnormal reaction of the patient, or of later complication, without mention of misadventure at the time of the procedure | CPT/HCPCS: G0277 ==

== ENCOUNTER → 2022-08-07 07:56 | Outpatient (BNVA) | payer OTHER, SELFPAY | PROVIDERS: PCP Family Medicine; Visit Provider Nurse Practitioner Family | DX: N30.41 Irradiation cystitis with hematuria (principal); L59.8 Other specified disorders of the skin and subcutaneous tissue related to radiation; Y84.2 Radiological procedure and radiotherapy as the cause of abnormal reaction of the patient, or of later complication, without mention of misadventure at the time of the procedure | CPT/HCPCS: G0277 ==

== ENCOUNTER → 2022-08-12 14:30 | Outpatient (BNVA) | payer OTHER, SELFPAY | PROVIDERS: PCP Family Medicine; Visit Provider Urology | DX: C61 Malignant neoplasm of prostate (principal); N30.41 Irradiation cystitis with hematuria | CPT/HCPCS: 81003; 87086; 99213 ==

== ENCOUNTER 2022-08-25 18:48 | Emergency (ER) | payer OTHER, SELFPAY ==
[2022-08-25 18:58] VITALS: BP 216/93; PULSE 77; RESP 16; TEMP 36.2; O2SAT 96; BMI 25.5
--- NOTE | 2022-08-25 20:22 | ED_ITS ---
HPI - Male Genitourinary General: Chief complaint: Urogenital-Male Stated complaint: cant void Time Seen by Provider: 08/25/22 20:17 Source: patient Mode of arrival: ambulatory Limitations: no limitations History of Present Illness: 82-year-old male has had a history of urinary retention in the past. He states that he has not had any issues with retention over a month but states that today has not been able to urinate and his home health has not been able to place a Negron. He does have suprapubic pain he rates a 7 out of 10 denies any fever denies any vomiting denies any diarrhea. Review of Systems Const: Denies: fever(s), chills, body aches or change in appetite Eyes: Denies: blurry vision or eye discomfort ENMT: Denies: throat pain or dental pain Card: Denies: chest pain Resp: Denies: dyspnea GI: Reports: abdominal pain : Reports: difficulty urinating Musc: Denies: neck pain or back pain Skin/Breast: Denies: rash Neuro: Denies: headache(s) Psych: Denies: depression David/Lymph: Denies: easy bruising All/Imm: Denies: urticaria PFSH ED PFSH: Medical History Adhesive capsulitis Anemia Arthralgia of both hands Biochemically recurrent malignant neoplasm of prostate High risk medication use Immunization counseling Inflammatory arthritis Osteoarthritis, generalized Parkinsons Prostate cancer PSA elevation Seronegative rheumatoid arthritis of both hands Surgical History History of cholecystectomy History of kidney surgery Family History Other CAD (coronary artery disease) Cancer Chronic kidney disease (CKD) Denies family history of Rheumatoid arthritis Diabetes Lupus Clotting disorder Dementia Hyperlipidemia Psychiatric illness Suicide Anesthesia complication Bleeding disorder Lung disease Hypertension Stroke Social History Smoking and tobacco status: never smoked Alcohol intake: never Marital status: Current occupational status: retired History of recent travel: No Physical Exam Const: COMMON NORMALS: no acute distress, patient oriented x3 and healthy appearing HENMT: COMMON NORMALS: normocephalic and atraumatic HEAD & SCALP: normocephalic and atraumatic Eye: COMMON NORMALS: Equal, round and reactive pupils present and EOMs intact bilaterally PUPIL: Yes Equal, round and reactive pupils present Neck/C-Spine: COMMON NORMALS: full ROM and supple Chest: COMMONS NORMALS: normal inspection of the chest and normal palpation of entire chest wall Resp: COMMON NORMALS: normal respiratory effort, No retractions, No use of accessory muscles and clear to auscultation bilaterally AUSCULTATION: clear to auscultation bilaterally Cardio: COMMON NORMALS: regular rate, regular rhythm and No murmurs present (Cardio) RATE: regular rate RHYTHM: regular rhythm GI: COMMON NORMALS: Normal to inspection, nondistended, normoactive bowel sounds present, Soft to palpation and no masses PALPATION: Yes Soft to palpation OTHER: Suprapubic tenderness Extremity: COMMON NORMALS: normal to inspection and full ROM Neuro: COMMON NORMALS: patient oriented x3, moves all extremities and no focal motor deficits Psych: COMMON NORMALS: mental status grossly normal, Normal thought process present and cooperative THOUGHT PROCESS: Normal thought process present Skin: COMMON NORMALS: no rashes or lesions noted and no wounds GENERAL SKIN EXAM: no rashes or lesions noted Course 2 Vital Signs: Vital signs: Vital Signs Temperature 97.2 F L 08/25/22 18:58 Pulse Rate 77 08/25/22 18:58 Respiratory Rate 16 08/25/22 22:48 Blood Pressure 216/93 08/25/22 18:58 Pulse Oximetry 96 08/25/22 18:58 Oxygen Delivery Me thod 08/25/22 18:58 MDM - Male Medical Decision Making Patient presents here with urinary retention he feels much improved here after Negron was placed I did draw blood work he feels improved and would like to go on home he does not want to stay for his results he is to follow-up with Dr. Chambers and return if worsening. Lab Data 08/25/22 22:00 08/25/22 22:00 Laboratory Results WBC 6.0 10^3/uL (4.0-10.0) 08/25/22 22:00 RBC 2.56 10^6/uL (4.1-5.3) L 08/25/22 22:00 Hgb 7.6 g/dL (11.7-16.6) L 08/25/22 22:00 Hct 24.3 % (42.0-52.0) L 08/25/22 22:00 MCV 94.9 fl (80-94) H 08/25/22 22:00 MCH 29.7 pg (28.0-34.0) 08/25/22 22:00 MCHC 31.3 g/dL (30.0-36.0) 08/25/22 22:00 RDW 15.3 % (12.1-15.1) H 08/25/22 22:00 Plt Count 130 10^3/cmm (130-400) 08/25/22 22:00 MPV 9.7 fL (7.4-10.4) 08/25/22 22:00 Neut % (Auto) 84.2 % 08/25/22 22:00 Lymph % (Auto) 6.5 % 08/25/22 22:00 [place] % (Auto) 7.5 % 08/25/22 22:00 Eos % (Auto) 1.2 % 08/25/22 22:00 Baso % (Auto) 0.3 % 08/25/22 22:00 Neut # (Auto) 5.04 10^3/uL (1.8-7.7) 08/25/22 22:00 Lymph # (Auto) 0.4 10^3/uL (0.8-4.8) L 08/25/22 22:00 [place] # (Auto) 0.5 10^3/uL (0.2-0.9) 08/25/22 22:00 Eos # (Auto) 0.1 10^3/uL (0.0-0.8) 08/25/22 22:00 Baso # (Auto) 0.0 10^3/uL (0.0-0.1) 08/25/22 22:00 Nucleated RBC % (auto) 0 % 08/25/22 22:00 Nucleated RBCs # 0.0 /100WBC 08/25/22 22:00 Urine Color Yellow (Yellow) 08/25/22 21:00 Urine Appearance Sl hazy (CLEAR) A 08/25/22 21:00 Urine pH 6 (5-7) 08/25/22 21:00 Ur Specific [place] 1.015 (1.005-1.030) 08/25/22 21:00 Urine Protein 1+ (Negative) H 08/25/22 21:00 Urine Glucose (UA) Norm (Normal) 08/25/22 21:00 Urine Ketones Negative (Negative) 08/25/22 21:00 Urine Blood 3+ (Negative) H 08/25/22 21:00 Urine Nitrate Negative (Negative) 08/25/22 21:00 Urine Bilirubin Neg (Negative) 08/25/22 21:00 Urine Urobilinogen Norm mg/dL (Negative) 08/25/22 21:00 Ur Leukocyte Esterase 2+ (Negative) H 08/25/22 21:00 Urine RBC Too numerous to cnt /hpf (0-2) H 08/25/22 21:00 Urine WBC Too numerous to cnt /hpf (0-5) H 08/25/22 21:00 Ur Squamous Epith Cells None /hpf (0-5) 08/25/22 21:00 Amorphous Sediment Not Reportable 08/25/22 21:00 Urine Bacteria 2+ /hpf (NONE) H 08/25/22 21:00 Discharge Plan Discharge Patient Disposition: Home Clinical Impression: Acute retention of urine Condition: Stable Prescriptions: No Action [place]'s wort 300 mg capsule 300 mg PO QAM carbidopa-levodopa 25-100 mg tablet 2 tab PO TID sulfasalazine 500 mg tablet 1 g PO BID Qty: 360 0RF Rx Instructions: give with food (meal/snack) leflunomide 20 mg tablet See Rx Instructions .ROUTE .COMPLEX Qty: 90 0RF Dose Instruction: TAKE ONE TABLET BY MOUTH ONCE A DAY FOR ARTHRITIS. TAKE AT SAME TIME EACH DAY. Rx Instructions: TAKE ONE TABLET BY MOUTH ONCE A DAY FOR ARTHRITIS. TAKE AT SAME TIME EACH DAY. hydroxychloroquine 200 mg tablet 200 mg PO BID Qty: 180 1RF tamsulosin 0.4 mg capsule 0.4 mg PO DAILY phenazopyridine [Pyridium] 100 mg tablet 100 mg PO TID PRN ciprofloxacin HCl 100 mg tablet 500 mg PO BID Qty: 60 1RF calcium carbonate 500 mg calcium (1,250 mg) Tablet 500 mg PO DAILY vitamin B complex Tablet 1 tab PO TID lutein 1 cap PO DAILY Vitamin B-12 1,000 mcg Tablet 1,000 mcg PO DAILY Discharge Orders: Discharge ED (Routine); Ordered 08/25/22 Ordered By: Marycruz George Referrals: Jose Chambers MD [Physician] - 1-3 days Rhonda Yousif MD [Primary Care Provider] - Discharge Diet: Advance as tolerated Discharge Activity: Resume usual activity Patient Instructions: Urinary Retention in Men (ED) Coding Level of Care Code ED Composing Room Machinist Apprentice for Chg Fwd Exam Comprehensive
[2022-08-25 21:36] LABS: Blood Urine 3+ (Negative); Glucose Urine UA Norm (Normal); Ketones Urine Negative (Negative); Nitrate Urine Negative (Negative); Protein Urine 1+ (Negative); Specific Gravity, Urine 1.015 (1.005-1.030); Urine Appearance SL Hazy (CLEAR); Urine Color Yellow (Yellow); pH Urine 6 (5-7)
[2022-08-25 21:37] LABS: Add Urine Culture? Yes; Add Urine Microscopic? YES; Bacteria Urine 2+ /hpf; Bilirubin Urine Neg (Negative); Leukocyte Esterase Urine 2+ (Negative); RBC Urine TOO NUMEROUS TO CNT /hpf (0-2); Urobilinogen Urine Norm (Negative); WBC Urine TOO NUMEROUS TO CNT /hpf (0-5)
[2022-08-25 22:48] VITALS: RESP 16
[2022-08-25 22:56] LABS: Basophils % 0.3 %; Eosinophils # 0.1 10^3/uL (0.0-0.8); Eosinophils % 1.2 %; Hematocrit 24.3 % (42.0-52.0); Hemoglobin 7.6 g/dL (11.7-16.6); Lymphocytes # 0.4 10^3/uL (0.8-4.8); Lymphocytes % 6.5 %; Mean Corpuscular HGB Conc 31.3 g/dL (30.0-36.0); Mean Corpuscular Hemoglobin 29.7 pg (28.0-34.0); Mean Corpuscular Volume 94.9 fl (80-94); Mean Platelet Volume 9.7 fL (7.4-10.4); Monocytes # 0.5 10^3/uL (0.2-0.9); Monocytes % 7.5 %; Neutrophils # 5.04 10^3/uL (1.8-7.7); Neutrophils % 84.2 %; Nucleated Red Blood Cells % 0 %; Platelet Count 130 10^3/cmm (130-400); Red Blood Count 2.56 10^6/uL (4.1-5.3); Red Cell Distribution Width 15.3 % (12.1-15.1)
[2022-08-25 23:10] LABS: INR 1.21 (0.8-1.2)
[2022-08-25 23:19] LABS: Alanine Aminotransferase < 5 U/L (0-41); Albumin Level 3.2 g/dL (3.5-5.2); Alkaline Phosphatase 68 U/L (40-130); Anion Gap 20.6 (5-19); Aspartate Amino Transferase 20 U/L (0-40); Blood Urea Nitrogen 68 mg/dL (8-23); Calcium 8.4 mg/dL (8.5-10.5); Carbon Dioxide 20 mmol/L (22-29); Chloride 97 mmol/L (98-107); Globulin 2.5 g/dL (1.3-4.6); Glucose 78 mg/dL (65-115); Osmolality Calculated 295 mOsm/kg (285-295); Potassium 4.6 mmol/L (3.5-5.1); Sodium 133 mmol/L (136-145); Total Bilirubin 0.4 mg/dL (0.15-1.2); Total Protein 5.7 g/dL (6.6-8.7)
--- NOTE | 2022-08-26 07:47 | PC.SOCIAL ---
Urology Follow-Up Referral sent to urology for follow up. Clinic to contact patient with appt date/time. [facility] for [facility] as well.
== END 2022-08-25 23:47 | disposition home or self-care (01) ==
PROVIDERS: Emergency Provider Emergency Medicine; PCP Family Medicine
DX: R33.9 Retention of urine, unspecified (principal); Z85.46 Personal history of malignant neoplasm of prostate; G20 Parkinson's disease
CPT/HCPCS: 36415; 51702; 80053; 81001; 85025; 85610; 87086; 99283

== ENCOUNTER → 2022-08-29 08:00 | Outpatient (BNVA) | payer OTHER, SELFPAY | PROVIDERS: PCP Family Medicine; Visit Provider Urology | DX: N30.41 Irradiation cystitis with hematuria (principal); N35.913 Unspecified membranous urethral stricture, male; R33.8 Other retention of urine; C61 Malignant neoplasm of prostate | CPT/HCPCS: 52281; 99213 ==

== ENCOUNTER 2022-08-29 11:22 | Emergency (ER) | payer OTHER, SELFPAY ==
[2022-08-29 11:45] VITALS: BP 149/77; PULSE 72; RESP 16; TEMP 37; O2SAT 97; BMI 25.5
--- NOTE | 2022-08-29 11:47 | XR_ITS ---
WS: [id number] Exam: XR chest 1V portable [id number] Date/Time of Exam: 08/29/2022 11:53 AM Reason For Exam: dyspnea/cough Comparison 06/20/2022. The lungs are clear and fully inflated. Heart size is top limits normal. No pleural effusions. Bony e lements are intact. The mediastinum is normal in contour. Mild levoscoliosis of the thoracic spine. D BINTA of both shoulders. XR/XR chest 1V portable [id number] IMPRESSION: 1. No acute cardiopulmonary process.
--- NOTE | 2022-08-29 11:47 | ECG_ITS ---
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 [id number]
--- NOTE | 2022-08-29 12:25 | W.ED.WEAKNES ---
HPI - Weakness General: Chief complaint: Weakness Stated complaint: body aches Time Seen by Provider: 08/29/22 11:43 Source: patient Mode of arrival: ambulatory History of Present Illness: 82-year-old male presents to the emergency room with generalized body aches and not feeling well. Is been increasingly weak for the last 1 week. He has a history of prostate CA. He was seen earlier this week with urinary outlet obstruction Negron catheter was placed his creatinine at that time was significantly elevated at 6.9. Additionally at that same visit his hemoglobin was 7.6 down from 6 weeks earlier at 11.6. He tells me he chronically has small amounts of blood in the stool he is not had any increased amounts lately. He also is noticing blood in the urine ever since he had the Negron placed. He has not had any fever sweats or chills but generally felt very weak. He was contacted Dr. Quintero and directed to the emergency room today because the previous abnormal labs. MD Complaint: generalized weakness Onset (ago): week(s) (1) Duration: constant Location: generalized Migration: none Severity: moderate Relieving factors: rest Exacerbating factors: none Associated symptoms: Reports decreased appetite and nausea; Denies chest pain, chills, confusion, melena, diaphoresis, easy bruising, fever(s), headache(s), myalgias, rash, short of breath, syncope or vomiting Review of Systems Const: Denies: fever(s), chills, fatigue, malaise or diaphoresis Card: Denies: chest pain or syncope GI: Reports: nausea; Denies: abdominal pain, vomiting or melena : Reports: difficulty urinating (Urinary retention Negron in place) Neuro: Denies: headache(s) or confusion David/Lymph: Denies: easy bruising PFS ED PFSH: Medical History Adhesive capsulitis Anemia Arthralgia of both hands Biochemically recurrent malignant neoplasm of prostate High risk medication use Immunization counseling Inflammatory arthritis Osteoarthritis, generalized Parkinsons Prostate cancer PSA elevation Seronegative rheumatoid arthritis of both hands Surgical History History of cholecystectomy History of kidney surgery Family History Other CAD (coronary artery disease) Cancer Chronic kidney disease (CKD) Denies family history of Rheumatoid arthritis Diabetes Lupus Clotting disorder Dementia Hyperlipidemia Psychiatric illness Suicide Anesthesia complication Bleeding disorder Lung disease Hypertension Stroke Social History Smoking and tobacco status: never smoked Alcohol intake: never Marital status: Current occupational status: retired History of recent travel: No Physical Exam Const: GENERAL APPEARANCE: cooperative and comfortable ORIENTATION/CONSCIOUSNESS: Yes awake, Yes oriented to person, Yes oriented to place and Yes oriented to time HENMT: COMMON NORMALS: normocephalic, atraumatic and hearing grossly normal bilaterally HEAD & SCALP: normocephalic and atraumatic Resp: COMMON NORMALS: normal respiratory effort, No retractions, No use of accessory muscles and clear to auscultation bilaterally AUSCULTATION: clear to auscultation bilaterally Cardio: COMMON NORMALS: regular rate, regular rhythm and No murmurs present (Cardio) RATE: regular rate RHYTHM: regular rhythm GI: COMMON NORMALS: Soft to palpation and No hepatosplenomegaly present AUSCULTATION: Yes normoactive bowel sounds PALPATION: Yes Soft to palpation, No Tenderness to palpation present (GI), No Guarding due to palpation present (GI) and Yes No hepatosplenomegaly present Extremity: COMMON NORMALS: normal to inspection, capillary refill normal, no clubbing, cyanosis or edema, no calf tenderness and no pedal edema Neuro: SENSORIUM/ORIENTATION: Yes oriented to person, Yes oriented to place and Yes oriented to time Skin: COMMON NORMALS: no rashes or lesions noted GENERAL SKIN EXAM: no rashes or lesions noted Course Vital Signs: Vital signs: Vital Signs Temperature 98.6 F 08/29/22 11:45 Pulse Rate 68 08/29/22 13:44 Respiratory Rate 14 08/29/22 13:44 Blood Pressure 162/87 08/29/22 13:44 Pulse Oximetry 94 08/29/22 13:44 Oxygen Delivery Me thod 08/29/22 13:44 MDM - Weakness Medical Decision Making Labs reviewed as found on the chart. Hemoglobin has improved significantly to 8.7 his creatinine is improved to 2.2 he is feeling better. At this point we do not need to admit him for renal failure and he does not need to be transfused. We did do a Hemoccult stool on him and it was positive. He would prefer to go home we do not really have anything that he would benefit from hospitalization. I called Dr. Quintero and reviewed with him he agreed it was okay okay let the patient go home but we both felt it was important that he get early follow-up we have asked patient to return to the oncology clinic early next week for repeat lab work. Medical Records I reviewed the patient's medical records. Lab Data I reviewed the patient's lab results. 08/29/22 12:25 08/29/22 12:25 Radiology Impressions Chest X-Ray 08/29/22 11:47 IMPRESSION: 1. No acute cardiopulmonary process. Laboratory Results WBC 5.6 10^3/uL (4.0-10.0) 08/29/22 12:25 RBC 2.98 10^6/uL (4.1-5.3) L 08/29/22 12:25 Hgb 8.7 g/dL (11.7-16.6) L 08/29/22 12:25 Hct 27.9 % (42.0-52.0) L 08/29/22 12:25 MCV 93.6 fl (80-94) 08/29/22 12:25 MCH 29.2 pg (28.0-34.0) 08/29/22 12:25 MCHC 31.2 g/dL (30.0-36.0) 08/29/22 12:25 RDW 14.8 % (12.1-15.1) 08/29/22 12:25 Plt Count 129 10^3/cmm (130-400) L 08/29/22 12:25 MPV 9.4 fL (7.4-10.4) 08/29/22 12:25 Neut % (Auto) 79.9 % 08/29/22 12:25 Lymph % (Auto) 8.3 % 08/29/22 12:25 [place] % (Auto) 9.9 % 08/29/22 12:25 Eos % (Auto) 1.1 % 08/29/22 12:25 Baso % (Auto) 0.4 % 08/29/22 12:25 Neut # (Auto) 4.45 10^3/uL (1.8-7.7) 08/29/22 12:25 Lymph # (Auto) 0.5 10^3/uL (0.8-4.8) L 08/29/22 12:25 [place] # (Auto) 0.6 10^3/uL (0.2-0.9) 08/29/22 12:25 Eos # (Auto) 0.1 10^3/uL (0.0-0.8) 08/29/22 12:25 Baso # (Auto) 0.0 10^3/uL (0.0-0.1) 08/29/22 12:25 Nucleated RBC % (auto) 0 % 08/29/22 12:25 Nucleated RBCs # 0.0 /100WBC 08/29/22 12:25 Sodium 140 mmol/L (136-145) 08/29/22 12:25 Potassium 4.3 mmol/L (3.5-5.1) 08/29/22 12:25 Chloride 103 mmol/L (98-107) 08/29/22 12:25 Carbon Dioxide 24 mmol/L (22-29) 08/29/22 12:25 Anion Gap 17.3 (5-19) 08/29/22 12:25 BUN 36 mg/dL (8-23) H 08/29/22 12:25 Creatinine 2.2 mg/dL (0.7-1.2) H 08/29/22 12:25 GFR Calculation Not Reportable 08/29/22 12:25 Glucose 109 mg/dL (65-115) 08/29/22 12:25 Calculated Osmolality 299 mOsm/kg (285-295) H 08/29/22 12:25 Calcium 8.9 mg/dL (8.5-10.5) 08/29/22 12:25 Total Bilirubin 0.4 mg/dL (0.15-1.2) 08/29/22 12:25 AST 25 U/L (0-40) 08/29/22 12:25 ALT < 5 U/L (0-41) 08/29/22 12:25 Alkaline Phosphatase 77 U/L (40-130) 08/29/22 12:25 Total Protein 6.5 g/dL (6.6-8.7) L 08/29/22 12:25 Albumin 3.6 g/dL (3.5-5.2) 08/29/22 12:25 Globulin 2.9 g/dL (1.3-4.6) 08/29/22 12:25 Blood Type B Negative 08/29/22 12:47 Rho(D) Type Negative 08/29/22 12:47 Antibody Screen Negative 08/29/22 12:47 Discharge Plan Discharge Patient Disposition: Home Clinical Impression: Prostate cancer, Anemia, Acute retention of urine, HERBERT (acute kidney injury) Condition: Stable Prescriptions: No Action [place]'s wort 300 mg capsule 300 mg PO QAM carbidopa-levodopa 25-100 mg tablet 2 tab PO TID sulfasalazine 500 mg tablet 1 g PO BID Qty: 360 0RF Rx Instructions: give with food (meal/snack) hydroxychloroquine 200 mg tablet 200 mg PO BID Qty: 180 1RF phenazopyridine [Pyridium] 100 mg tablet 100 mg PO TID PRN (Reason: Constipation) ciprofloxacin HCl 100 mg tablet 500 mg PO BID Qty: 60 1RF calcium carbonate 500 mg calcium (1,250 mg) Tablet 500 mg PO DAILY vitamin B complex Tablet 1 tab PO TID lutein 1 cap PO DAILY cyanocobalamin (vitamin B-12) [Vitamin B-12] 1,000 mcg Tablet 1,000 mcg PO DAILY leflunomide 20 mg tablet 20 mg PO DAILY Discharge Orders: Discharge ED (Routine); Ordered 08/29/22 Ordered By: Felix Uribe Referrals: Rhonda Yousif MD [Primary Care Provider] - Discharge Diet: Usual diet Discharge Activity: Increase activity as tolerated Activity Restrictions/Additional Instructions: You were seen today for the acute kidney injury and anemia. Both of these things have improved from earlier in the week and no longer would require hospitalization. However as we discussed they should both be watched closely. Before your discharge I discussed this with your oncologist Dr. Quintero. They would like to see you back in the oncology clinic early next week for repeat blood work. If you have problems before then return to the emergency room. Continue all of your other medications as previously prescribed at this time. Coding Level of Care Code ED Customer Strategy Manager for Rahel Estrada
[2022-08-29 12:33] LABS: Basophils % 0.4 %; Eosinophils # 0.1 10^3/uL (0.0-0.8); Eosinophils % 1.1 %; Hematocrit 27.9 % (42.0-52.0); Hemoglobin 8.7 g/dL (11.7-16.6); Lymphocytes # 0.5 10^3/uL (0.8-4.8); Lymphocytes % 8.3 %; Mean Corpuscular HGB Conc 31.2 g/dL (30.0-36.0); Mean Corpuscular Hemoglobin 29.2 pg (28.0-34.0); Mean Corpuscular Volume 93.6 fl (80-94); Mean Platelet Volume 9.4 fL (7.4-10.4); Monocytes # 0.6 10^3/uL (0.2-0.9); Monocytes % 9.9 %; Neutrophils # 4.45 10^3/uL (1.8-7.7); Neutrophils % 79.9 %; Nucleated Red Blood Cells % 0 %; Platelet Count 129 10^3/cmm (130-400); Red Blood Count 2.98 10^6/uL (4.1-5.3); Red Cell Distribution Width 14.8 % (12.1-15.1); White Blood Count 5.6 10^3/uL (4.0-10.0)
[2022-08-29 12:57] LABS: Alanine Aminotransferase < 5 U/L (0-41); Albumin Level 3.6 g/dL (3.5-5.2); Alkaline Phosphatase 77 U/L (40-130); Anion Gap 17.3 (5-19); Aspartate Amino Transferase 25 U/L (0-40); Blood Urea Nitrogen 36 mg/dL (8-23); Calcium 8.9 mg/dL (8.5-10.5); Carbon Dioxide 24 mmol/L (22-29); Chloride 103 mmol/L (98-107); Globulin 2.9 g/dL (1.3-4.6); Glucose 109 mg/dL (65-115); Osmolality Calculated 299 mOsm/kg (285-295); Potassium 4.3 mmol/L (3.5-5.1); Sodium 140 mmol/L (136-145); Total Bilirubin 0.4 mg/dL (0.15-1.2); Total Protein 6.5 g/dL (6.6-8.7)
[2022-08-29] MEDS: sodium chloride 0.9% 1,000 ML 999 ML IV (13:35)
[2022-08-29 13:44] VITALS: BP 162/87; PULSE 68; RESP 14; O2SAT 94
== END 2022-08-29 15:28 | disposition home or self-care (01) ==
PROVIDERS: Emergency Provider Family Medicine; PCP Family Medicine
DX: N17.9 Acute kidney failure, unspecified (principal); D64.9 Anemia, unspecified; R33.9 Retention of urine, unspecified; C61 Malignant neoplasm of prostate; G20 Parkinson's disease
CPT/HCPCS: 71045; 80053; 85025; 86850; 86900; 93005; 99285; J7030

== ENCOUNTER 2022-09-15 12:25 | Inpatient (IN) | payer OTHER, SELFPAY ==
[2022-09-15 12:36] VITALS: BP 159/76; PULSE 76; RESP 16; TEMP 36.2; O2SAT 99
--- NOTE | 2022-09-15 15:11 | PC.NURSE ---
WHILE WITH PT IN LOBBY PT IS IN NAD.
[2022-09-15 15:12] VITALS: PULSE 88; O2SAT 98
[2022-09-15 16:31] VITALS: BP 167/107; PULSE 76; O2SAT 98
--- NOTE | 2022-09-15 16:31 | PC.NURSE ---
WHILE WITH PT IN LOBBY PT IS IN NAD.
--- NOTE | 2022-09-15 17:52 | W.ED.MALEGU ---
HPI - Male Genitourinary General: Chief complaint: Urogenital-Male Stated complaint: cath issues Time Seen by Provider: 09/15/22 17:46 History of Present Illness: 82-year-old male patient comes in today for complaints of poor drainage from Negron catheter. Patient reports over the last 2 days Negron catheter has not been draining hardly anything at all. Patient has a Negron catheter in due to BPH and prostate cancer. Patient appears chronically ill. No fevers been reported. reports some nausea and vomiting with pain. Spouse also reports the patient's had poor oral intake over the last 24 hours. Review of Systems Const: Denies: fever(s) : Reports: other (Negron catheter dysfunction.) [facility] [place] [facility] PFSH: Medical History Adhesive capsulitis Anemia Arthralgia of both hands Biochemically recurrent malignant neoplasm of prostate High risk medication use Immunization counseling Inflammatory arthritis Osteoarthritis, generalized Parkinsons Prostate cancer PSA elevation Seronegative rheumatoid arthritis of both hands Surgical History History of cholecystectomy History of kidney surgery Family History Other CAD (coronary artery disease) Cancer Chronic kidney disease (CKD) Denies family history of Rheumatoid arthritis Diabetes Lupus Clotting disorder Dementia Hyperlipidemia Psychiatric illness Suicide Anesthesia complication Bleeding disorder Lung disease Hypertension Stroke Social History Smoking and tobacco status: never smoked Alcohol intake: never Marital status: Current occupational status: retired History of recent travel: No Physical Exam Const: COMMON NORMALS: alert HENMT: COMMON NORMALS: normocephalic HEAD & SCALP: normocephalic Neck/C-Spine: COMMON NORMALS: full ROM Resp: COMMON NORMALS: normal respiratory effort AUSCULTATION: diminished lung sounds Cardio: COMMON NORMALS: regular rate and regular rhythm RATE: regular rate RHYTHM: regular rhythm GI: COMMON NORMALS: Soft to palpation PALPATION: Yes Soft to palpation : COMMON NORMALS: Yes no CVA tenderness BLADDER/KIDNEY EXAM: Yes no CVA tenderness Back/Pelvis: COMMON NORMALS: no CVA tenderness Extremity: NARRATIVE EXTREMITY EXAM: Edema noted to the hands and feet Neuro: SENSORIUM/ORIENTATION: Yes alert Skin: NARRATIVE SKIN EXAM: Pale skin Course ED course: 1999, consulted Dr. Chambers regarding patient's concerns and complaints. He reports that patient has had a lot of pain and discomfort with bladder and catheter due to stricture and post radiation treatment of cancer. He recommended doing a bladder scan to evaluate whether the bladder has been emptying. Then he recommended probable treatment for cystitis based on last cultures. I also discussed patient's laboratory values with Dr. George patient has had a decline in his hemoglobin to 7.1 he agreed with plan to go ahead and transfuse 1 unit. Patient also has shown a bump in his creatinine from 2.2-4.9 and sodium is slightly low at 127. 2053, reviewed patient with Dr. George concerning his creatinine increase and probable need for admission for acute kidney injury. He agreed with plan. He recommended CT scan of abdomen and pelvis also. Patient was also being treated per recommendations by Dr. Chambers for urinary tract infection with ceftriaxone based on his last culture that had growth of Klebsiella oxtoca. Blood cultures were also collected. Vital Signs: Vital signs: Vital Signs Temperature 97.2 F L 09/15/22 19:28 Pulse Rate 76 09/15/22 19:28 Respiratory Rate 16 09/15/22 19:28 Blood Pressure 167/107 09/15/22 19:28 Pulse Oximetry 98 09/15/22 19:28 [facility] - Male Medical Decision Making 82-year-old male patient comes in today due to poorly draining Negron catheter. Patient has had the Negron catheter for about 2 weeks and over the last 2 days it has been draining poorly. Patient reports some increased pain and discomfort. Patient reports that there is leakage around the Negron catheter. Bladder scan showed 150 mL in urine. Differential diagnosis includes UTI, dehydration, sepsis, acute kidney injury, acute urinary retention. No signs of severe urinary retention is noted. Patient's CBC noted white count of 8.3, hemoglobin 7.1 and 22.5 which is down from 2 weeks ago. Family is wanting a unit of red blood cells given as per recommendation by Dr. Quintero. Patient's sodium was 127, potassium is 5.0, creatinine has climbed to 4.9. Urinalysis has a large amount of red blood cells and leukocyte esterase in it. I reviewed the case with Dr. Chambers regarding changing the catheter he did not recommend doing it unless it showed significant retention. I believe the patient probably is not having a lot of urine out due to his dehydration secondary to nausea and vomiting which is probably caused from either his cancer treatment or urinary tract infection. CT of the abdomen pelvis was ordered. We will give a gram of Rocephin per request by Dr. Chambers, urine culture and blood cultures were collected. I discussed this with Dr. George who agreed that patient should be admitted for acute kidney injury, urinary tract infection, dehydration. Patient needs IV fluids, antibiotics, and further evaluation and treatment. Family and patient both agreed to plan. Dr. Marie, hospitalist, agreed to admission. Lab Data 09/15/22 18:30 09/15/22 18:30 Laboratory Results WBC 8.3 10^3/uL (4.0-10.0) 09/15/22 18:30 RBC 2.58 10^6/uL (4.1-5.3) L 09/15/22 18: Hgb 7.1 g/dL (11.7-16.6) L 09/15/22 18:30 Hct 22.5 % (42.0-52.0) L 09/15/22 18:30 MCV 87.2 fl (80-94) 09/15/22 18: MCH 27.5 pg (28.0-34.0) L 09/15/22 18:30 MCHC 31.6 g/dL (30.0-36.0) 09/15/22 18:30 RDW 15.7 % (12.1-15.1) H 09/15/22 18: Plt Count 191 10^3/cmm (130-400) 09/15/22 18:30 MPV 9.5 fL (7.4-10.4) 09/15/22 18: Neut % (Auto) 86.3 % 09/15/22 18: Lymph % (Auto) 4.6 % 09/15/22 18: Baker % (Auto) 7.6 % 09/15/22 18:30 Eos % (Auto) 0.6 % 09/15/22 18:30 Baso % (Auto) 0.2 % 09/15/22 18: Neut # (Auto) 7.14 10^3/uL (1.8-7.7) 09/15/22 18:30 Lymph # (Auto) 0.4 10^3/uL (0.8-4.8) L 09/15/22 18:30 Baker # (Auto) 0.6 10^3/uL (0.2-0.9) 09/15/22 18:30 Eos # (Auto) 0.1 10^3/uL (0.0-0.8) 09/15/22 18:30 Baso # (Auto) 0.0 10^3/uL (0.0-0.1) 09/15/22 18:30 Nucleated RBC % (auto) 0 % 09/15/22 18:30 Nucleated RBCs # 0.0 /100WBC 09/15/22 18:30 Sodium 127 mmol/L (136-145) L 09/15/22 18:30 Potassium 5.0 mmol/L (3.5-5.1) 09/15/22 18:30 Chloride 93 mmol/L (98-107) L 09/15/22 18:30 Carbon Dioxide 20 mmol/L (22-29) L 09/15/22 18:30 Anion Gap 19.0 (5-19) 09/15/22 18:30 BUN 64 mg/dL (8-23) H 09/15/22 18:30 Creatinine 4.9 mg/dL (0.7-1.2) H 09/15/22 18:30 GFR Calculation Not Reportable 09/15/22 18:30 Glucose 88 mg/dL (65-115) 09/15/22 18:30 Calculated Osmolality 282 mOsm/kg (285-295) L 09/15/22 18:30 Calcium 8.9 mg/dL (8.5-10.5) 09/15/22 18:30 Urine Color Dark yellow (Yellow) 09/15/22 19:49 Urine Appearance Hazy (CLEAR) A 09/15/22 19:49 Urine pH 9 (5-7) H 09/15/22 19:49 Ur Specific [place] 1.015 (1.005-1.030) 09/15/22 19:49 Urine Protein 2+ (Negative) H 09/15/22 19:49 Urine Glucose (UA) Norm (Normal) 09/15/22 19:49 Urine Ketones Negative (Negative) 09/15/22 19:49 Urine Blood 3+ (Negative) H 09/15/22 19:49 Urine Nitrate Negative (Negative) 09/15/22 19:49 Urine Bilirubin Neg (Negative) 09/15/22 19:49 Prot Sulfosalicylic Acd Positive (Negative) 09/15/22 19:49 Urine Urobilinogen Norm mg/dL (Negative) 09/15/22 19:49 Ur Leukocyte Esterase 2+ (Negative) H 09/15/22 19:49 Urine RBC Too numerous to cnt /hpf (0-2) H 09/15/22 19:49 Urine WBC 5-10 /hpf (0-5) H 09/15/22 19:49 Ur Squamous Epith Cells 0-4 /hpf (0-5) H 09/15/22 19:49 Triple Phos Crystals 5-10 /hpf H 09/15/22 19:49 Amorphous Sediment Not Reportable 09/15/22 19:49 Urine Bacteria 3+ /hpf (NONE) H 09/15/22 19:49 Discharge Plan Discharge Patient Disposition: Admitted As Inpatient Clinical Impression: HERBERT (acute kidney injury), Prostate cancer, Acute dehydration, Acute UTI Anemia Qualifiers: Anemia type: unspecified type Qualified Code(s): D64.9 - Anemia, unspecified Condition: Stable Coding Level of Care Code ED 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
[2022-09-15 18:42] LABS: Basophils % 0.2 %; Eosinophils # 0.1 10^3/uL (0.0-0.8); Eosinophils % 0.6 %; Hematocrit 22.5 % (42.0-52.0); Hemoglobin 7.1 g/dL (11.7-16.6); Lymphocytes # 0.4 10^3/uL (0.8-4.8); Lymphocytes % 4.6 %; Mean Corpuscular HGB Conc 31.6 g/dL (30.0-36.0); Mean Corpuscular Hemoglobin 27.5 pg (28.0-34.0); Mean Corpuscular Volume 87.2 fl (80-94); Mean Platelet Volume 9.5 fL (7.4-10.4); Monocytes # 0.6 10^3/uL (0.2-0.9); Monocytes % 7.6 %; Neutrophils # 7.14 10^3/uL (1.8-7.7); Neutrophils % 86.3 %; Nucleated Red Blood Cells % 0 %; Platelet Count 191 10^3/cmm (130-400); Red Blood Count 2.58 10^6/uL (4.1-5.3); Red Cell Distribution Width 15.7 % (12.1-15.1); White Blood Count 8.3 10^3/uL (4.0-10.0)
[2022-09-15] MEDS: morphine 4 mg/mL SDV 1 mL IVP (18:42)
[2022-09-15] MEDS: ondansetron 2 mg/ML SDV 2 mL 4 MG IVP (18:42)
[2022-09-15] MEDS: sodium chloride 0.9% 500 ML IV (18:45)
[2022-09-15 18:59] LABS: Blood Urea Nitrogen 64 mg/dL (8-23); Calcium 8.9 mg/dL (8.5-10.5); Carbon Dioxide 20 mmol/L (22-29); Chloride 93 mmol/L (98-107); Glucose 88 mg/dL (65-115); Osmolality Calculated 282 mOsm/kg (285-295); Sodium 127 mmol/L (136-145)
[2022-09-15 19:28] VITALS: BP 167/107; PULSE 76; RESP 16; TEMP 36.2; O2SAT 98
[2022-09-15 20:20] LABS: Urine Color Dark Yellow (Yellow)
[2022-09-15 20:21] LABS: Add Urine Microscopic? YES; Bilirubin Urine Neg (Negative); Blood Urine 3+ (Negative); Glucose Urine UA Norm (Normal); Ketones Urine Negative (Negative); Leukocyte Esterase Urine 2+ (Negative); Nitrate Urine Negative (Negative); Protein Urine 2+ (Negative); Specific Gravity, Urine 1.015 (1.005-1.030); Sulfosalicylic Acid Urine Positive (Negative); Urine Appearance Hazy (CLEAR); Urobilinogen Urine Norm (Negative); pH Urine 9 (5-7)
[2022-09-15 20:22] LABS: Add Urine Culture? Yes; Bacteria Urine 3+ /hpf; RBC Urine TOO NUMEROUS TO CNT /hpf (0-2); Squamous Epithelial Cell Urine 0-4 /hpf (0-5)
--- NOTE | 2022-09-15 20:48 | CTR_ITS ---
PROCEDURE INFORMATION: Exam: CT Abdomen And Pelvis Without Contrast Exam date and time: 09/15/2022 9:33 PM Age: 82 years old Clinical indication: Nausea and vomiting; Abdominal pain; Generalized; Prior surgery; Surgery type: Hernia repair. Patient HX: C/O abd pain with n/v. History of renal failure and prostate cancer. ; Additional info: Juan Ramon TECHNIQUE: Imaging protocol: Computed tomography of the abdomen and pelvis without contrast. Radiation optimization: All CT scans at this facility use at least one of these dose optimization techniques: automated exposure control; mA and/or kV adjustment per patient size (includes targeted exams where dose is matched to clinical indication); or iterative reconstruction. COMPARISON: CT abdomen pelvis wo/w [id number] 02/24/2018 10:11 AM RADIATION DOSE METRICS: Total DLP (mGy-cm): 713.1 FINDINGS: Limitations: The absence of intravenous contrast lessens the sensitivity of this study for solid organ abnormalities. The absence of intravenous contrast lessens the sensitivity of this study for solid organ abnormalities. Lungs: There is calcified granuloma in the left lung base. Liver: There is a 2.8 cm sized cyst arising from the medial segment of the left lobe of the liver and there are 2 smaller benign-appearing simple cysts in the left lobe measuring 6 and 9 mm, all not significantly changed. Gallbladder and bile ducts: There has been a cholecystectomy. Pancreas: The pancreas is normal. Spleen: The spleen demonstrates punctate calcifications, consistent with remote granulomatous organism exposure. Adrenal glands: The adrenal glands are normal. Kidneys and ureters: There is marked hydronephrosis. There is hydroureter. There are multiple bilateral renal collecting system calcifications. There is no stone along the course of either ureter. 4.5 cm benign-appearing simple cyst lower pole left kidney. This is larger than on the previous study. Indeterminate lesion measuring 2.8 cm mid right kidney not well seen without contrast. This may be larger than on the previous study. There are several smaller benign-appearing cysts in the left kidney 1 of which appears hyperdense and measures 16 mm, larger than the previous exam. Small benign-appearing hyperdense cysts also noted in the right kidney. Stomach and bowel: There is no evidence of colitis/diverticulitis. Appendix: A normal appendix is identified. Intraperitoneal space: There is a new lobulated 38 x 28 x 47 mm soft tissue mass in the subhepatic space lateral to the hepatic flexure of the colon of uncertain significance. There are 10 and 14 mm sized soft tissue nodules also seen in the subhepatic space abutting the liver of similar character and of uncertain significance. Further evaluation recommended. Vasculature: The aorta demonstrates mild atherosclerotic calcification. There is no evidence of an abdominal aortic aneurysm. Lymph nodes: There is no evidence of lymphadenopathy. Urinary bladder: Negron catheter is within the urinary bladder. There are calcifications within the urinary bladder likely representing bladder calculi. Small amount of air is seen within the urinary bladder, presumably secondary to placement of the Negron catheter. There is significant urinary bladder wall thickening. Reproductive: There are findings of prostatectomy. Bones/joints: Unremarkable. No acute fracture. Soft tissues: Unremarkable. CT/CT abdomen pelvis wo con [id number] IMPRESSION: 1. Severe bilateral hydronephrosis. 2. Nephrolithiasis 3. Stones within the urinary bladder. 4. Right upper quadrant peritoneal soft tissue mass of uncertain significance. This could represent peritoneal metastasis or neoplasm of other etiology. COMMENTS: Consistent with the [employer]'s Incidental Findings Committee white paper (J Am Gloria Radiol 2018): Any incidental renal lesion less than 1 cm or classified as too small to characterize, or any incidental cystic renal lesion characterized as simple-appearing, is likely benign. No follow-up imaging is recommended for these lesions per consensus recommendations based on imaging criteria.
[2022-09-15] MEDS: cefTRIAXone 1,000 MG in sodium chloride 0.9% (plus) 50 ML 100 MG IV (20:49)
--- NOTE | 2022-09-15 21:05 | PM.HP ---
Providers/Chief Complaint Primary Care Provider: Rhonda Yousif MD Chief Complaint: cath issues History of Present Illness Gabriele Sommers is a 82 year old male with history of prostate cancer, chronic indwelling catheter follows up with Dr. Chambers, patient was brought in today by his with concern catheter not draining. For last 3 to 4 days patient is experiencing low-grade fever 99.9, he has experienced 5 episodes of emesis as well, got concerned today when she noticed that catheter was not draining properly. is also endorsing that whenever she washes his undergarments she notices blood which she thinks is coming from urine and rectum. Previous colonoscopy was roughly 4 to 5 years ago which was unremarkable. 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 Requested BNP and echo Review of Systems Const: Reports: fever(s), body aches and fatigue Eyes: Denies: change in vision ENMT: Denies: throat pain Card: Denies: chest pain Resp: Denies: dyspnea GI: Reports: nausea and vomiting : Reports: difficulty urinating and dysuria; Denies: flank pain Musc: Denies: neck pain Skin/Breast: Denies: rash Neuro: Denies: headache(s) Psych: Reports: anxiety Endo: Denies: polyuria David/Lymph: Denies: easy bruising All/Imm: Denies: urticaria Medications/Allergies Home Medications Medication Instructions Recorded Confirmed Last Taken Type [place]'s wort 300 mg capsule 300 mg PO QAM 06/04/20 08/29/22 08/29/22 History carbidopa 25 mg-levodopa 100 mg 2 tab PO TID 09/18/20 08/29/22 08/29/22 History tablet calcium carbonate 500 mg calcium 500 mg PO DAILY 04/04/22 08/29/22 08/29/22 History (1,250 mg) tablet lutein 1 cap PO DAILY 04/04/22 08/29/22 08/29/22 History vitamin B complex 1 tab PO TID 04/04/22 08/29/22 08/29/22 History cyanocobalamin (vitamin B-12) 1,000 mcg PO DAILY 06/04/22 08/29/22 08/29/22 History 1,000 mcg tablet (Vitamin B-12) hydroxychloroquine 200 mg tablet 200 mg PO BID #180 tabs 07/10/22 08/29/22 08/29/22 Rx sulfasalazine 500 mg tablet 1 g PO BID #360 tabs 07/10/22 08/29/22 08/29/22 Rx phenazopyridine 100 mg tablet 100 mg PO TID PRN Constipation 08/12/22 08/29/22 Unknown History (Pyridium) ciprofloxacin HCl 100 mg tablet 500 mg PO BID #60 tabs 08/18/22 08/29/22 08/29/22 Rx leflunomide 20 mg tablet 20 mg PO DAILY 08/29/22 08/29/22 08/29/22 History Allergies Allergy/AdvReac Type Severity Reaction Status Date / Time adhesive tape Allergy Unknown Verified 08/29/22 12:05 PFSH Acute PFSH: Medical History Adhesive capsulitis Anemia Arthralgia of both hands Biochemically recurrent malignant neoplasm of prostate High risk medication use Immunization counseling Inflammatory arthritis Osteoarthritis, generalized Parkinsons Prostate cancer PSA elevation Seronegative rheumatoid arthritis of both hands Surgical History History of cholecystectomy History of kidney surgery Family History Other CAD (coronary artery disease) Cancer Chronic kidney disease (CKD) Denies family history of Rheumatoid arthritis Diabetes Lupus Clotting disorder Dementia Hyperlipidemia Psychiatric illness Suicide Anesthesia complication Bleeding disorder Lung disease Hypertension Stroke Social History Smoking and tobacco status: never smoked Alcohol intake: never Marital status: Current occupational status: retired History of recent travel: No Vitals/I&O/Wt Last Vital Signs Temp 97.2 F L 09/15/22 19:28 Pulse 76 09/15/22 19:28 Resp 16 09/15/22 19:28 BP 167/107 09/15/22 19:28 Pulse Ox 98 09/15/22 19:28 09/15/22 09/15/22 09/15/22 06:59 14:59 22:59 Intake Total 500 / 500 Balance 500 / 500 Weight last 48 hrs Weight 76.204 kg Physical Exam Narrative: Patient is awake and alert Lying supine Hemodynamically stable Negron catheter draining urine No acute discomfort Abdomen soft No signs of peritonitis Clinically patient looks dehydrated however 1+ pitting edema of bilateral lower extremities Family at the bedside Nonfocal neuro exam Currently doing well on room air Very pleasant and cooperative Data 09/15/22 18:30 09/15/22 18:30 A&P Assessment and plan (1) Prostate cancer: (2) Parkinsons: (3) Inflammatory arthritis: (4) Seronegative rheumatoid arthritis of both hands: (5) HERBERT (acute kidney injury): (6) HERBERT (acute kidney injury): (7) Anemia: Qualifiers: Anemia type: unspecified type Qualified Code(s): D64.9 - Anemia, unspecified (8) Irradiation cystitis with hematuria: (9) Malignant neoplasm of prostate: (10) Membranous urethral stricture: Plan HERBERT Likely postrenal obstruction Negron catheter started draining after 150 mL normal saline flush was used to flush the catheter Start ceftriaxone for possible UTI Previous urine culture pansensitive Klebsiella Patient's Negron catheter was changed [address] Chambers Hematuria related anemia Previous EGD colonoscopy unremarkable Will give 1 unit PRBC UA positive for hematuria He might need another cystoscopy Please consult Dr. Chambers in the morning for further recommendations Nausea/vomiting low-grade fever Requested CT abdomen pelvis without contrast No signs of peritonitis on clinical exam Clinically patient does not look to be in any distress Lower extremity edema New onset Requested BNP and echo Prostate cancer with University score [address] Quintero History of prostate cancer with Rigo score 7. Underwent laparoscopic radical prostatectomy March 2018. Treated with radiation therapy, completed October 2019. Was on Zoladex but stopped due to side effects.? 11/2020 PSA: 2.09 Due to progressive PSA level a PSMA scan was completed August 2021 showed no obvious metastatic disease but multiple vague lesions. Restarted Zoladex November 2021 (PSA: 10.650) Full code Cardiac DVT prophylaxis contraindicated Use SCDs Attestations Medical Necessity Statement*: More than 2 midnights anticipated for management of HERBERT bladder out obstruction Time Spent in Patient Care: 40 Coding Level of Care Code Acute Pin Machine Tender for Chg Fwd Diagnoses Prostate cancer C61 Parkinsons G20 Inflammatory arthritis M19.90 Seronegative rheumatoid arthritis of both hands M06.041; M06.042 HERBERT (acute kidney injury) N17.9 HERBERT (acute kidney injury) N17.9 Anemia D64.9 Anemia type: unspecified type Irradiation cystitis with hematuria N30.41 Malignant neoplasm of prostate C61 Membranous urethral stricture N35.913
--- NOTE | 2022-09-15 21:25 | PC.NURSE ---
handoff report received from Noe Miller RN.
[2022-09-15 21:57] LABS: Hematocrit 22.9 % (42.0-52.0); Hemoglobin 7.2 g/dL (11.7-16.6)
[2022-09-15 22:21] LABS: Lactic Sepsis W/Reflex 0.7 mmol/L (0.5-2.2)
[2022-09-15 22:29] VITALS: BP 128/72; PULSE 67; RESP 17; TEMP 36.7; O2SAT 97
[2022-09-15 23:31] LABS: NT Pro B Type Natriuretic Pept 1994 pg/mL (0-450)
[2022-09-15] MEDS: hyDRALAzine 10 mg Tablet PO (23:40)
[2022-09-15] MEDS: sodium chloride 0.9% 1,000 ML 100 ML IV (23:40)
[2022-09-16] VITALS (18 sets, daily range): BP systolic 105–163; BP diastolic 54–82; PULSE 61–88; RESP 14–18; TEMP 36.2–37.1; O2SAT 94–99
[2022-09-16] MEDS: sodium chloride 0.9% (100 ml) 100 ML 10 ML ×2 (02:01→13:59)
[2022-09-16 06:07] LABS: Basophils % 0.5 %; Eosinophils # 0.1 10^3/uL (0.0-0.8); Eosinophils % 1.7 %; Hematocrit 24.3 % (42.0-52.0); Hemoglobin 7.7 g/dL (11.7-16.6); Lymphocytes # 0.5 10^3/uL (0.8-4.8); Lymphocytes % 7.8 %; Mean Corpuscular HGB Conc 31.7 g/dL (30.0-36.0); Mean Corpuscular Hemoglobin 28.2 pg (28.0-34.0); Mean Platelet Volume 9.2 fL (7.4-10.4); Monocytes # 0.6 10^3/uL (0.2-0.9); Monocytes % 9.7 %; Neutrophils # 4.82 10^3/uL (1.8-7.7); Neutrophils % 79.5 %; Nucleated Red Blood Cells % 0 %; Platelet Count 167 10^3/cmm (130-400); Red Blood Count 2.73 10^6/uL (4.1-5.3); White Blood Count 6.1 10^3/uL (4.0-10.0)
[2022-09-16 06:23] LABS: Blood Urea Nitrogen 54 mg/dL (8-23); C Reactive Protein 134.1 mg/L (0.0-4.9); Calcium 8.4 mg/dL (8.5-10.5); Carbon Dioxide 19 mmol/L (22-29); Chloride 102 mmol/L (98-107); Glucose 74 mg/dL (65-115); Magnesium 1.9 mg/dL (1.7-2.3); Osmolality Calculated 289 mOsm/kg (285-295); Sodium 133 mmol/L (136-145)
[2022-09-16 06:24] LABS: Anion Gap 16.4 (5-19)
[2022-09-16 06:25] LABS: Potassium 4.4 mmol/L (3.5-5.1)
[2022-09-16] MEDS: sodium chloride 0.9% 1,000 ML 100 ML IV (06:34)
[2022-09-16] MEDS: cefTRIAXone 1,000 MG in sodium chloride 0.9% (plus) 50 ML 100 MG IV (08:51)
[2022-09-16] MEDS: carbidopa-levodopa 25-100mg Tablet 2 EACH PO ×3 (10:58→20:19)
[2022-09-16] MEDS: pantoprazole 40 mg SDV IVP ×2 (10:58→17:52)
[2022-09-16] MEDS: phenazopyridine 100 mg Tablet PO ×2 (10:59→20:51)
[2022-09-16] MEDS: amlodipine 10 mg Tablet PO (10:59)
[2022-09-16] MEDS: hyDRALAzine 10 mg Tablet PO ×2 (10:59→20:20)
--- NOTE | 2022-09-16 11:47 | PC.NURSE ---
This RN notifed that patient had pulled out IV and NGT. Per Dr. Belle note- okay to leave NGT out as long as patient is tolerating PO intake. Patient has since tolerated drinking golytle with no complaints of nausea or vomiting. IV reinserted and documented.
--- NOTE | 2022-09-16 13:29 | PM.PN ---
Subjective Subjective: Was seen and examined this morning, has been afebrile, BUN and serum creatinine is improving, H&H post 1 unit transfusion is: 7.7/24 , hyponatremia is improving, no hematuria noted. Medications: Medication Review Details: Generic Name Dose Route Start Last Admin Trade Name Nayeli PRN Reason Stop Dose Admin Amlodipine Besylat e 10 mg 09/16/22 09:00 09/16/22 10:59 Amlodipine 10 Mg Tablet PO 10 mg DAILY LIT Administration Carbidopa/Levodopa 2 each 09/16/22 09:00 09/16/22 10:58 Carbidopa-Levodo pa 25-100mg Tablet PO 2 each TID LIT Administration Hydralazine HCl 10 mg 09/15/22 22:45 09/16/22 10:59 Hydralazine 10 M g Tablet PO 10 mg TID LIT Administration Ceftriaxone Sodium 1,000 mg/ 50 mls @ 100 mls/ hr 09/16/22 09:00 09/16/22 11:08 Sodium Chloride IV Infused DAILY LIT Infusion Protocol Pantoprazole Sodiu m 40 mg 09/16/22 09:00 09/16/22 10:58 Pantoprazole 40 Mg Sdv IVP 40 mg BID LIT Administration Phenazopyridine HC l 100 mg 09/16/22 09:00 09/16/22 10:59 Phenazopyridine 100 Mg Tablet PO 100 mg BID LIT Administration Vitals/I&O/Wt Last Vital Signs Temp 98.4 F 09/16/22 13:14 Pulse 76 09/16/22 13:14 Resp 16 09/16/22 13:14 BP 123/64 09/16/22 13:14 Pulse Ox 94 09/16/22 13:14 O2 Del Method 09/16/22 08:00 09/15/22 09/16/22 09/16/22 22:59 06:59 14:59 Intake Total 500 / 500 1090 / 1590 880 / 880 Output Total 550 / 550 1625 / 2175 900 / 900 Balance -50 / -50 -535 / -585 -20 / -20 Weight last 48 hrs Weight 76.204 kg Physical Exam Const: COMMON NORMALS: patient oriented x3 Resp: COMMON NORMALS: clear to auscultation bilaterally EFFORT & INSPECTION: Yes symmetric chest movement AUSCULTATION: clear to auscultation bilaterally Cardio: COMMON NORMALS: regular rate, regular rhythm, S1 normal heart sound present, S2 normal heart sound present, No gallops present (Cardio), No murmurs present (Cardio), No rub (Cardio) and Peripheral pulses 2+ throughout RATE: regular rate RHYTHM: regular rhythm HEART SOUNDS: S1 normal heart sound present and S2 normal heart sound present PERIPHERAL PULSES: Peripheral pulses 2+ throughout GI: COMMON NORMALS: Normal to inspection, nondistended, normoactive bowel sounds present, Soft to palpation, non-tender, No hepatosplenomegaly present and no masses AUSCULTATION: Yes normoactive bowel sounds PALPATION: Yes Soft to palpation and Yes No hepatosplenomegaly present RECTAL EXAM: Yes deferred Extremity: COMMON NORMALS: no clubbing, cyanosis or edema and no pedal edema Neuro: COMMON NORMALS: patient oriented x3 Data 09/16/22 05:58 09/16/22 05:58 Micro: Microbiology 09/16/22 09:23 Occult Blood (FIT) - Final Stool Routine Collection 09/15/22 21:24 Blood Culture - Preliminary Blood SPECIMEN COLLECTED 09/15/22 21:00 Blood Culture - Preliminary Blood SPECIMEN COLLECTED A&P Assessment and plan (1) Prostate cancer: (2) Parkinsons: (3) Inflammatory arthritis: (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 Chambers as outpatient, hypertension, was brought in by his due to concerns for catheter not draining well, According to the patient has lately also experienced low-grade fever, vomiting, lately she has also noticed Blood in his undergarments. Currently is being managed for: Assessment: HERBERT on CKD: Possibly secondary to obstructive uropathy. 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 Patient is currently making good urine, Negron catheter is draining well, BUN serum creatinine is improved. Continue IV hydration, monitor BMP, monitor intake output charting, avoid nephrotoxic's. H&H posttransfusion has been appreciated, plan to give him 1 more unit of PRBC today, monitor H&H. FOBT is negative. Follow blood culture Follow 2D echo Prior EGD and colonoscopy has been unremarkable Continue ceftriaxone Continue home antihypertensive Hematuria is evident on UA, patient will continue to follow urology as outpatient. Negron catheter was changed 2 weeks ago History of CA prostate: Oncology follow up outpatient CODE STATUS: Full code DVT prophylaxis on SCDs Attestations Medical Necessity Statement*: Patient is still in hospital for management of HERBERT. Coding Level of Care Code Acute Technical Support Coordinator for g Fwd Diagnoses Prostate cancer C61 Parkinsons G20 Inflammatory arthritis M19.90 Seronegative rheumatoid arthritis of both hands M06.041; M06.042 HERBERT (acute kidney injury) N17.9 Anemia D64.9 Anemia type: unspecified type Irradiation cystitis with hematuria N30.41 Membranous urethral stricture N35.913
[2022-09-16] MEDS: sodium chloride 0.9% 1,000 ML 50 ML IV (17:55)
[2022-09-16] MEDS: morphine IR 15 mg Tablet PO (19:27)
--- NOTE | 2022-09-16 20:25 | PC.NURSE ---
Addendum entered by Deborah Leon LPN 09/17/22 03:53: continued monitoring of oropeza bag shows irrigation to have been successful. pt has had good output overnight, urine has returned to a bright yellow in color as well. Original Note: oropeza catheter of pt showed bright red hematuria in tube and no output in bag. this nurse irrigated oropeza x2 with 50mL sterile water each time. return of bright red urine with small to moderate in size clots, numbering 4 in total. immediate return of 250mL in urine.
--- NOTE | 2022-09-16 22:45 | USCV_ITS ---
Gabriele Sommers Age: 82 Gender: M : 1940 Exam Date: 09/16/2022 00:04 Ordering Phys: Pipe Marie MD Technologist: WINTER Exam Location: [facility] [place] Indication: Admitting diagnosis was urinary outlet obstruction. BP: 128 / 72 HR: 72 Rhythm: Sinus Technical Quality: Adequate MEASUREMENTS (Male / Female) Normal Values 2D ECHO LV Diastolic Diameter PLAX 2.4 cm 4.2 - 5.9 / 3.9 - 5.3 cm LV Systolic Diameter PLAX 1.8 cm IVS Diastolic Thickness 1.8 cm 0.6 - 1.0 / 0.6 - 0.9 cm IVS Systolic Thickness 2.9 cm LVPW Diastolic Thickness 1.3 cm 0.6 - 1.0 / 0.6 - 0.9 cm LVPW Systolic Thickness 2.0 cm LVOT Diameter 1.9 cm LV Ejection Fraction 2D Teich 55.9 % LV Ejection Fraction MOD 2C 77.7 % LV Ejection Fraction 2C AL 78.4 % LA Diameter 3.4 cm LA Width 3.9 cm LA Height 5.8 cm RA Width 2.9 cm RA Height 4.8 cm Aorta at Sinotubular Diameter 3.8 cm IVC Diameter 0.9 cm M-MODE Aortic Annulus Diameter 4.0 cm LA Ao Ratio MM 0.8 MV E Point Septal Separation 0.3 cm DOPPLER AV Peak Velocity 155.0 cm/s LVOT Peak Velocity 129.0 cm/s AV Area Cont Eq vti 2.5 cm squared AV Area Cont Eq pk 2.3 cm squared MV Peak Velocity 106.0 cm/s MV Area PHT 1.7 cm squared Mitral E to A Ratio 0.6 MV E' Velocity 28.5 cm/s Mitral E to MV E' Ratio 12.3 Mitral E to LV E' Lateral Ratio 11.5 Mitral E to LV E' Septal Ratio 13.2 TR Peak Velocity 247.3 cm/s TR Peak Gradient 24.5 mmHg TV Peak E Velocity 53.0 cm/s Right Atrial Pressure 5.0 mmHg Pulmonary Artery Systolic Pressu 29.5 mmHg PV Peak Velocity 114.0 cm/s RV Acceleration Time 0.1 s RV Ejection Time 0.3 s RV AcT/ET 0.3 FINDINGS Left Ventricle Normal left ventricular size, systolic function and wall thickness, with no regional wall motion abnormalities. Left ventricular ejection fraction is estimated at 65 %. Grade I diastolic dysfunction (abnormal relaxation filling pattern), normal to mildly elevated filling pressures. Right Ventricle Normal right ventricular size and systolic function. Right ventricular systolic pressure 28 mmHg. Right Atrium Normal right atrial size. Left Atrium Mildly increased left atrial size. Mitral Valve Structurally normal mitral valve. No mitral valve stenosis. No significant mitral valve regurgitation. Aortic Valve Structurally normal trileaflet aortic valve. No aortic valve stenosis. Trace aortic valve regurgitation. Tricuspid Valve Structurally normal tricuspid valve. No tricuspid valve stenosis. Trace to mild tricuspid valve regurgitation. Pulmonic Valve Structurally normal pulmonic valve. No pulmonary valve stenosis. Trace pulmonary valve regurgitation. Pericardium No pericardial effusion. Aorta Normal size aortic root and proximal ascending aorta. IVC Normal IVC dimension with >50% respiratory change of the inferior vena cava. CONCLUSIONS 1. Normal left ventricular size, systolic function and wall thickness, with no regional wall motion abnormalities. Left ventricular ejection fraction is estimated at 65 %. Grade I diastolic dysfunction (abnormal relaxation filling pattern), normal to mildly elevated filling pressures. 2. Normal right ventricular size and systolic function. 3. Trace to mild tricuspid valve regurgitation. 4. Trace aortic valve regurgitation. 5. No prior similar studies to compare. Kiah Torres MD (Electronically Signed) Final Date: 16 September 2022 12:49 S
[2022-09-17] VITALS (7 sets, daily range): BP systolic 135–165; BP diastolic 73–80; PULSE 62–74; RESP 17–20; TEMP 36.7–36.8; O2SAT 93–95
[2022-09-17] MEDS: acetaminophen 500 mg Tablet PO (00:25)
[2022-09-17] MEDS: morphine IR 15 mg Tablet PO ×2 (01:49→08:37)
[2022-09-17] MEDS: sodium chloride 0.9% 1,000 ML 50 ML IV (03:26)
[2022-09-17 05:17] LABS: Basophils % 0.4 %; Eosinophils # 0.1 10^3/uL (0.0-0.8); Eosinophils % 2.6 %; Hematocrit 28.2 % (42.0-52.0); Hemoglobin 8.9 g/dL (11.7-16.6); Lymphocytes # 0.7 10^3/uL (0.8-4.8); Lymphocytes % 13.1 %; Mean Corpuscular HGB Conc 31.6 g/dL (30.0-36.0); Mean Corpuscular Hemoglobin 28.2 pg (28.0-34.0); Mean Corpuscular Volume 89.2 fl (80-94); Mean Platelet Volume 9.4 fL (7.4-10.4); Monocytes # 0.5 10^3/uL (0.2-0.9); Monocytes % 9.5 %; Neutrophils # 3.71 10^3/uL (1.8-7.7); Neutrophils % 73.8 %; Nucleated Red Blood Cells % 0 %; Platelet Count 162 10^3/cmm (130-400); Red Blood Count 3.16 10^6/uL (4.1-5.3)
[2022-09-17 05:40] LABS: Anion Gap 15.9 (5-19); Blood Urea Nitrogen 45 mg/dL (8-23); Calcium 8.5 mg/dL (8.5-10.5); Carbon Dioxide 19 mmol/L (22-29); Chloride 107 mmol/L (98-107); Glucose 73 mg/dL (65-115); Osmolality Calculated 296 mOsm/kg (285-295); Potassium 3.9 mmol/L (3.5-5.1); Sodium 138 mmol/L (136-145)
[2022-09-17] MEDS: pantoprazole 40 mg SDV IVP (08:38)
[2022-09-17] MEDS: carbidopa-levodopa 25-100mg Tablet 2 EACH PO (08:38)
[2022-09-17] MEDS: amlodipine 10 mg Tablet PO (08:39)
[2022-09-17] MEDS: hyDRALAzine 10 mg Tablet PO (08:39)
[2022-09-17] MEDS: cefTRIAXone 1,000 MG in sodium chloride 0.9% (plus) 50 ML 100 MG IV (08:39)
[2022-09-17] MEDS: phenazopyridine 100 mg Tablet PO (08:40)
--- NOTE | 2022-09-17 09:49 | P.DS_ITS ---
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 Chambers as outpatient, hypertension, was brought in by his due to concerns for catheter not draining well, he was admitted for the management of HERBERT on CKD, likely secondary to postobstructive uropathy, bilateral hydronephrosis hydroureter hematuria, Negron catheter was flushed, thereafter it was draining well, patient was making good urine output, HERBERT was improving, he was kept on IV hydration, intake output charting was done, for chronic anemia, likely secondary to anemia of chronic disease patient was transfused 2 units PRBC, hemoglobin at the time of discharge was:8.9, he has prior EGD and colonoscopy as a part of anemia work- up which were unremarkable, FOBT was negative. Patient was kept on ceftriaxone for UTI during the hospital stay, will continue ciprofloxacin as outpatient renally dosed. 2D echo was also done during the hospital stay: As there was some lower extremity edema: Echo showed normal LV size systolic function, LVEF of 65% grade 1 diastolic dysfunction, normal RV size and systolic function, no gross valvular abnormality. Overall patient responded well to above medical management and was discharged in stable condition to home, he will continue to follow urology as outpatient. Physical Exam Const: COMMON NORMALS: patient oriented x3 Resp: COMMON NORMALS: clear to auscultation bilaterally EFFORT & INSPECTION: Yes symmetric chest movement AUSCULTATION: clear to auscultation bilaterally Cardio: COMMON NORMALS: regular rate, regular rhythm, S1 normal heart sound present, S2 normal heart sound present, No gallops present (Cardio), No murmurs present (Cardio), No rub (Cardio) and Peripheral pulses 2+ throughout RATE: regular rate RHYTHM: regular rhythm HEART SOUNDS: S1 normal heart sound present and S2 normal heart sound present PERIPHERAL PULSES: Peripheral pulses 2+ throughout GI: COMMON NORMALS: Normal to inspection, nondistended, normoactive bowel sounds present, Soft to palpation, non-tender, No hepatosplenomegaly present and no masses AUSCULTATION: Yes normoactive bowel sounds PALPATION: Yes Soft to palpation and Yes No hepatosplenomegaly present RECTAL EXAM: Yes deferred Extremity: COMMON NORMALS: no clubbing, cyanosis or edema and no pedal edema Neuro: COMMON NORMALS: patient oriented x3 Discharge Data Studies Completed and Pending Completed Studies During Hospitalization Category Date Time Status CT abdomen pelvis wo con [id number] Stat Cat Scan 09/15/22 20:48 Completed CV. echo complete* [id number] Routine Ultrasound 09/16/22 22:45 Completed Pending at discharge Category Date Time Status BMP [Basic Metabolic Panel] AM LABS Lab 09/18/22 04:00 Ordered BMP [Basic Metabolic Panel] AM LABS Lab 09/19/22 04:00 Ordered Blood Culture Stat Lab 09/15/22 21:24 Results CBC Auto Diff [Complete Blood Count w/Auto] AM LABS Lab 09/18/22 04:00 Ordered CBC Auto Diff [Complete Blood Count w/Auto] AM LABS Lab 09/19/22 04:00 Ordered Urine Culture Stat Lab 09/15/22 19:49 Received Radiology Impressions Abdomen/Pelvis CT 09/15/22 20:48 IMPRESSION: 1. Severe bilateral hydronephrosis. 2. Nephrolithiasis 3. Stones within the urinary bladder. 4. Right upper quadrant peritoneal soft tissue mass of uncertain significance. This could represent peritoneal metastasis or neoplasm of other etiology. COMMENTS: Consistent with the [place] [employer]'s Incidental Findings Committee white paper (J Am Gloria Radiol 2018): Any incidental renal lesion less than 1 cm or classified as too small to characterize, or any incidental cystic renal lesion characterized as simple-appearing, is likely benign. No follow-up imaging is recommended for these lesions per consensus recommendations based on imaging criteria. Laboratory Results WBC 5.0 10^3/uL (4.0-10.0) 09/17/22 04:16 RBC 3.16 10^6/uL (4.1-5.3) L 09/17/22 04:16 Hgb 8.9 g/dL (11.7-16.6) L 09/17/22 04:16 Hct 28.2 % (42.0-52.0) L 09/17/22 04:16 MCV 89.2 fl (80-94) 09/17/22 04:16 MCH 28.2 pg (28.0-34.0) 09/17/22 04:16 MCHC 31.6 g/dL (30.0-36.0) 09/17/22 04:16 RDW 15.0 % (12.1-15.1) 09/17/22 04:16 Plt Count 162 10^3/cmm (130-400) 09/17/22 04:16 MPV 9.4 fL (7.4-10.4) 09/17/22 04:16 Neut % (Auto) 73.8 % 09/17/22 04:16 Lymph % (Auto) 13.1 % 09/17/22 04:16 [place] % (Auto) 9.5 % 09/17/22 04:16 Eos % (Auto) 2.6 % 09/17/22 04:16 Baso % (Auto) 0.4 % 09/17/22 04:16 Neut # (Auto) 3.71 10^3/uL (1.8-7.7) 09/17/22 04:16 Lymph # (Auto) 0.7 10^3/uL (0.8-4.8) L 09/17/22 04:16 [place] # (Auto) 0.5 10^3/uL (0.2-0.9) 09/17/22 04:16 Eos # (Auto) 0.1 10^3/uL (0.0-0.8) 09/17/22 04:16 Baso # (Auto) 0.0 10^3/uL (0.0-0.1) 09/17/22 04:16 Nucleated RBC % (auto) 0 % 09/17/22 04:16 Nucleated RBCs # 0.0 /100WBC 09/17/22 04:16 Sodium 138 mmol/L (136-145) 09/17/22 04:16 Potassium 3.9 mmol/L (3.5-5.1) 09/17/22 04:16 Chloride 107 mmol/L (98-107) 09/17/22 04:16 Carbon Dioxide 19 mmol/L (22-29) L 09/17/22 04:16 Anion Gap 15.9 (5-19) 09/17/22 04:16 BUN 45 mg/dL (8-23) H 09/17/22 04:16 Creatinine 2.7 mg/dL (0.7-1.2) H 09/17/22 04:16 GFR Calculation Not Reportable 09/17/22 04:16 Glucose 73 mg/dL (65-115) 09/17/22 04:16 Calculated Osmolality 296 mOsm/kg (285-295) H 09/17/22 04:16 Lactic Acid 0.7 mmol/L (0.5-2.2) 09/15/22 21:24 Calcium 8.5 mg/dL (8.5-10.5) 09/17/22 04:16 Magnesium 1.9 mg/dL (1.7-2.3) 09/16/22 05:58 C-Reactive Protein 134.1 mg/L (0.0-4.9) H 09/16/22 05:58 NT-Pro-B Natriuret Pep 1994 pg/mL (0-450) H 09/15/22 18:30 Procalcitonin 0.40 ng/mL (0-0.5) 09/15/22 18:30 Urine Color Dark yellow (Yellow) 09/15/22 19:49 Urine Appearance Hazy (CLEAR) A 09/15/22 19:49 Urine pH 9 (5-7) H 09/15/22 19:49 Ur Specific [place] 1.015 (1.005-1.030) 09/15/22 19:49 Urine Protein 2+ (Negative) H 09/15/22 19:49 Urine Glucose (UA) Norm (Normal) 09/15/22 19:49 Urine Ketones Negative (Negative) 09/15/22 19:49 Urine Blood 3+ (Negative) H 09/15/22 19:49 Urine Nitrate Negative (Negative) 09/15/22 19:49 Urine Bilirubin Neg (Negative) 09/15/22 19:49 Prot Sulfosalicylic Acd Positive (Negative) 09/15/22 19:49 Urine Urobilinogen Norm mg/dL (Negative) 09/15/22 19:49 Ur Leukocyte Esterase 2+ (Negative) H 09/15/22 19:49 Urine RBC Too numerous to cnt /hpf (0-2) H 09/15/22 19:49 Urine WBC 5-10 /hpf (0-5) H 09/15/22 19:49 Ur Squamous Epith Cells 0-4 /hpf (0-5) H 09/15/22 19:49 Triple Phos Crystals 5-10 /hpf H 09/15/22 19:49 Amorphous Sediment Not Reportable 09/15/22 19:49 Urine Bacteria 3+ /hpf (NONE) H 09/15/22 19:49 Blood Type B Negative 09/15/22 Unknown Rho(D) Type Negative 09/15/22 Unknown Antibody Screen Negative 09/15/22 Unknown Crossmatch See Detail 09/15/22 Unknown Vitals Last Vital Signs Temp 98.1 F 09/17/22 07:43 Pulse 62 09/17/22 07:43 Resp 20 H 09/17/22 08:37 BP 160/73 09/17/22 07:43 Pulse Ox 95 09/17/22 08:37 O2 Del Method 09/17/22 04:00 Discharge Plan Discharge Patient Disposition: Home Condition: Stable Prescriptions: New amlodipine 10 mg tablet 10 mg PO DAILY Qty: 30 0RF tramadol 50 mg tablet 50 mg PO TID PRN (Reason: pain) Qty: 20 0RF Continued carbidopa-levodopa 25-100 mg tablet 2 tab PO TID sulfasalazine 500 mg tablet 1 g PO BID Qty: 360 0RF Rx Instructions: give with food (meal/snack) hydroxychloroquine 200 mg tablet 200 mg PO BID Qty: 180 1RF phenazopyridine [Pyridium] 100 mg tablet 100 mg PO TID PRN (Reason: Constipation) tramadol 50 mg tablet 50 mg PO TID leflunomide 20 mg tablet 20 mg PO DAILY Changed ciprofloxacin HCl 100 mg tablet 500 mg PO DAILY Qty: 60 1RF Discharge Orders: Discharge Order (Routine); Ordered 09/17/22 Ordered By: Tato Ya Other Ambulatory Orders: Basic Metabolic Panel (Routine) Timeframe: 1 Week Facility: [facility] - Location: Lab - Main Lab Ordered By: Tato Ya Complete Blood Count w/Auto (Routine) Timeframe: 1 Week Location: Determined by Patient Ordered By: Tato Ya Referrals: Rhonda Yousif MD [Primary Care Provider] - 09/26/22 11:30 am Patient Instructions: Amlodipine (By mouth), Tramadol (By mouth), Acute Kidney Injury (GEN), Urinary Tract Infection in Men (DC), Opioid Safety Discharge Attestations Time Spent in Discharge Care*: less than 30 min Quality Metrics Clinical Quality Measures [ No reported AMI, CVA or VTE this stay] Coding Level of Care Code Acute Chg FW DC note Diagnoses Prostate cancer C61 Parkinsons G20 Inflammatory arthritis M19.90 Seronegative rheumatoid arthritis of both hands M06.041; M06.042 HERBERT (acute kidney injury) N17.9 Anemia D64.9 Anemia type: unspecified type Irradiation cystitis with hematuria N30.41 Membranous urethral stricture N35.913
== END 2022-09-17 11:50 | disposition home or self-care (01) | DRG 699 ==
LOC: ER 21:18 → MEDSURG 21:51
PROVIDERS: Admitting Provider Internal Medicine; Emergency Provider Nurse Practitioner Family; PCP Family Medicine; Visit Provider Internal Medicine
DX: N30.41 Irradiation cystitis with hematuria (principal); E87.1 Hypo-osmolality and hyponatremia; N13.39 Other hydronephrosis; N17.9 Acute kidney failure, unspecified; C61 Malignant neoplasm of prostate; G20 Parkinson's disease; M06.00 Rheumatoid arthritis without rheumatoid factor, unspecified site; D63.1 Anemia in chronic kidney disease; W88.1XXS Exposure to radioactive isotopes, sequela; N35.913 Unspecified membranous urethral stricture, male; Z96.0 Presence of urogenital implants; Z79.891 Long term (current) use of opiate analgesic; N21.0 Calculus in bladder
CPT/HCPCS: 36430; 74176; 80048; 81001; 82274; 83605; 83735; 83880; 84145; 85014; 85018; 85025; 86140; 86850; 86900; 86920; 87040; 87086; 93306; 96365; 96375; 99285; C9113; J0696; J2270; J2405; J7030; J7040; P9016

== ENCOUNTER 2022-09-23 15:41 | Outpatient (CLI) | payer OTHER, SELFPAY ==
[2022-09-23 16:54] LABS: Basophils # 0.1 10^3/uL (0.0-0.1); Eosinophils # 0.1 10^3/uL (0.0-0.8); Eosinophils % 2.3 %; Hematocrit 35.2 % (42.0-52.0); Hemoglobin 10.6 g/dL (11.7-16.6); Lymphocytes % 17.4 %; Mean Corpuscular HGB Conc 30.1 g/dL (30.0-36.0); Mean Corpuscular Hemoglobin 27.5 pg (28.0-34.0); Mean Corpuscular Volume 91.4 fl (80-94); Mean Platelet Volume 8.9 fL (7.4-10.4); Monocytes # 0.6 10^3/uL (0.2-0.9); Monocytes % 9.4 %; Neutrophils # 4.09 10^3/uL (1.8-7.7); Neutrophils % 68.7 %; Nucleated Red Blood Cells % 0 %; Platelet Count 201 10^3/cmm (130-400); Red Blood Count 3.85 10^6/uL (4.1-5.3); Red Cell Distribution Width 15.2 % (12.1-15.1)
[2022-09-23 18:57] LABS: Alanine Aminotransferase 8 U/L (0-41); Albumin Level 3.3 g/dL (3.5-5.2); Alkaline Phosphatase 135 U/L (40-130); Aspartate Amino Transferase 22 U/L (0-40); Blood Urea Nitrogen 31 mg/dL (8-23); Calcium 9.3 mg/dL (8.5-10.5); Carbon Dioxide 19 mmol/L (22-29); Chloride 101 mmol/L (98-107); Globulin 3.8 g/dL (1.3-4.6); Glucose 103 mg/dL (65-115); Total Bilirubin 0.5 mg/dL (0.15-1.2); Total Protein 7.1 g/dL (6.6-8.7)
[2022-09-23 20:09] LABS: Osmolality Calculated 293 mOsm/kg (285-295); Sodium 138 mmol/L (136-145)
[2022-09-23 20:10] LABS: Anion Gap 22.3 (5-19); Potassium 4.3 mmol/L (3.5-5.1)
== END 2022-09-23 15:42 | disposition home or self-care (01) ==
LOC: LAB 15:49
PROVIDERS: PCP Family Medicine; Visit Provider Urology
DX: N19 Unspecified kidney failure (principal); T83.098A Other mechanical complication of other urinary catheter, initial encounter; N35.913 Unspecified membranous urethral stricture, male; C61 Malignant neoplasm of prostate; R97.21 Rising PSA following treatment for malignant neoplasm of prostate; N30.41 Irradiation cystitis with hematuria; G20 Parkinson's disease
CPT/HCPCS: 36415; 80053; 85025; 99214

== ENCOUNTER 2022-09-24 09:18 | Day surgery (SDC) | payer OTHER, SELFPAY ==
[2022-09-24] VITALS (9 sets, daily range): BP systolic 112–182; BP diastolic 79–110; PULSE 66–79; RESP 15–18; TEMP 36.1–36.6; O2SAT 96–97; BMI 22.4
--- NOTE | 2022-09-24 09:26 | SC_ITS ---
WS: [id number] INTRAOPERATIVE TECHNIQUE: 12 Spot fluoroscopic images for intraoperative purposes. FLUOROSCOPY TIME: 102.0seconds CLINICAL INFORMATION: Urethral dilation under fluoroscopy COMPARISON: CT September 15 2022 FINDINGS: Balloon angioplasty across the urethra with dilatation. Negron catheter placement. SC/C-arm FL for Urology IMPRESSION: Images obtained for intraoperative purposes.
--- NOTE | 2022-09-24 09:51 | ANES.PREANE2 ---
Pre-Anesthetic Assessment Height/Weight: Height 1.78 m Weight 70.76 kg Temp Pulse Resp BP Pulse Ox O2 Del Method 97.5 F L 79 18 122/79 97 09/24/22 09:40 09/24/22 09:40 09/24/22 09:40 09/24/22 09:40 09/24/22 09:40 09/24/22 09:40 Preop Diagnosis: Retained urethral catheter, urethrovesical anastomotic stricture Operation Date: 09/24/22 12:00 Proposed Procedures s CYSTOSCOPY URETHRAL DILATION POSSIBLE SUPRAPUBIC TUBE 51728 55159 T83.098A(Not Applicable) - Jose Chambers MD p CYSTOSCOPY URETHRAL DILATION POSSIBLE SUPRAPUBIC TUBE 30822 [id number] T83.098A(Not Applicable) - Jose Chambers MD s Urethral Dilation(Not Applicable) - Jose Chambers MD Familial anesthetic complications: None Was Beta Lexa taken within 24 hours: N/A Was Clonidine taken within 24 hours: N/A Last intake: Intake Last Liquid Date 09/23/22 Last Liquid Time 21:00 Last Solid Date 09/23/22 Last Solid Time 18:00 Social No alcohol and No tobacco Exam alert, oriented x 3, clear to auscultation bilaterally and regular rate & rhythm Airway Mallampati: Class II Dentition: full CV/HEM Hypertension Neuropsych parkinsons Anesthetic Plan ASA status: 3 Anesthesia: General Risk of > 500 ml blood loss (7ml/kg in children): No Medications/Allergies Home Medications Medication Instructions Recorded Confirmed Last Taken Type carbidopa 25 mg-levodopa 100 mg 2 tab PO TID 09/18/20 09/24/22 09/23/22 History tablet hydroxychloroquine 200 mg tablet 200 mg PO BID #180 tabs 07/10/22 09/24/22 09/23/22 Rx sulfasalazine 500 mg tablet 1 g PO BID #360 tabs 07/10/22 09/24/22 09/23/22 Rx phenazopyridine 100 mg tablet 100 mg PO TID PRN urinary spams 08/12/22 09/24/22 09/23/22 History (Pyridium) leflunomide 20 mg tablet 20 mg PO DAILY 08/29/22 09/24/22 09/23/22 History tramadol 50 mg tablet 50 mg PO TID 09/16/22 09/23/22 Unknown History amlodipine 10 mg tablet 10 mg PO DAILY #30 tabs 09/17/22 09/24/22 09/23/22 Rx ciprofloxacin HCl 100 mg tablet 500 mg PO DAILY #60 tabs 09/17/22 09/24/22 09/23/22 Rx tramadol 50 mg tablet 50 mg PO TID PRN pain #20 tabs 09/17/22 09/24/22 09/24/22 Rx Allergies Allergy/AdvReac Type Severity Reaction Status Date / Time adhesive tape Allergy Unknown Verified 09/23/22 16:13 [facility] Anesthesia Medical History (Updated 09/23/22 @ 17:16 by Jose Chambers MD) Acute dehydration Acute UTI Adhesive capsulitis HERBERT (acute kidney injury) Anemia Arthralgia of both hands Biochemically recurrent malignant neoplasm of prostate High risk medication use Immunization counseling Inflammatory arthritis Irradiation cystitis with hematuria Malignant neoplasm of prostate Stage X - T2b, NX, MX Membranous urethral stricture Osteoarthritis, generalized Parkinsons Prostate cancer PSA elevation Seronegative rheumatoid arthritis of both hands Surgical History History of cholecystectomy History of kidney surgery Family History Other CAD (coronary artery disease) Cancer Chronic kidney disease (CKD) Denies family history of Rheumatoid arthritis Diabetes Lupus Clotting disorder Dementia Hyperlipidemia Psychiatric illness Suicide Anesthesia complication Bleeding disorder Lung disease Hypertension Stroke Social History Smoking and tobacco status: never smoked Alcohol intake: never Marital status: Current occupational status: retired History of recent travel: No Data Anesthesia Cardiac Studies: Echocardiogram 09/16/22
[2022-09-24] MEDS: sodium chloride 0.9% 1,000 ML 30 ML IV (09:53)
--- NOTE | 2022-09-24 10:39 | W.PM.OPSUD ---
Surgery/Procedure H&P Update DATE OF PROCEDURE: September 24, 2022 DATE H&P PERFORMED: 09/23/22 H&P UPDATE INFORMATION: I have reviewed H&P completed within last 30 days, I have examined patient prior to procedure, No changes to prior documentation and H&P is in [facility] EMR on date indicated PREOP DIAGNOSIS: Retained urethral catheter, urethrovesical anastomotic stricture PLANNED PROCEDURE: Operation Date: 09/24/22 12:00 Proposed Procedures s CYSTOSCOPY URETHRAL DILATION POSSIBLE SUPRAPUBIC TUBE 21044 29082 T83.098A(Not Applicable) - Jose Chambers MD p CYSTOSCOPY URETHRAL DILATION POSSIBLE SUPRAPUBIC TUBE 42874 17612 T83.098A(Not Applicable) - Jose Chambers MD s Urethral Dilation(Not Applicable) - Jose Chambers MD
--- NOTE | 2022-09-24 10:53 | P.OP_ITS ---
Operative Report Date of procedure: September 24, 2022 Pre-op diagnosis: Retained urethral catheter Urethrovesical anastomotic stricture Post-op diagnosis: Retained urethral catheter Urethrovesical anastomotic stricture Procedure done: 1. Cystoscopy difficult removal of Negron catheter 2. Cystolitholapaxy with mechanical and laser lithotripsy 3. Cystogram 4. Difficult catheter placement over guidewire 5. Dilation of urethrovesical anastomotic stricture Implants: 20 [place]anese Negron catheter Specimens removed/disposition: Dystrophic calcifications Pathology: Stone fragment Surgeon: Reyes Estimated blood loss: Less than 10 cc Urine output: Not measured Complications: None Findings: Anesthesia: General Condition: Stable Disposition: PACU Intraoperative findings * Ring of calcifications/eschar at the urethral vesicle anastomotic stricture requiring laser lithotripsy * Urethral vesicle anastomotic stricture dilated with 8, 10, 12 [place] Amplatz sounds which facilitated catheter removal. It was then dilated to 21 [place] with a balloon. Brief History: Mr. Sommers is a very pleasant 82-year-old white male whose had a very difficult time related to prostate cancer and complications from treatment. He is status post radical prostatectomy and postop radiation for residual disease. 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 This has been complicated as well by radiation cystitis for which she underwent a course of hyperbaric oxygen therapy but had to be cut short due to significant impact on his function posttreatment Recently was hospitalized with acute renal failure from obstructive uropathy from a catheter that was poorly draining. That catheter had been placed after clinic dilation of the urethrovesical anastomotic stricture with plans for increasing it sized to an 18 or 16 Bhutanese. He recovered after the catheter was flushed while he was hospitalized for renal failure and has done reasonably well at least from a metabolic perspective Yesterday he was due for his catheter change in the clinic but I could not get it out without excessive tension and for that reason he was scheduled for evaluation under anesthesia. On review of his CT scan that was performed during his recent hospitalization he was found to have a lot of most likely dystrophic calcifications at the area of the stricture and I expect that these were contributing to the inability to remove the catheter. Plan was to try to advance a mini ureteroscope along the urethral catheter and dislodge any adherent calcifications. Possibly laser lithotripsy. We had talked about a suprapubic tube being placed at some point if the urethra just becomes completely unmanageable and I feel like we are pretty close to that. If the site of catheter impaction could not be adequately accessed from a retrograde perspective I have recommended antegrade approach via open cystotomy followed by catheter removal and suprapubic tube placement. All of this has been discussed in great detail with the patient and his and is well today with his son. Our uniform hope is that we will be able to manage the catheter endoscopically only achieve adequate dilation of the urethrovesical anastomosis and place a sizable catheter that can be maintained with frequent changes etc. We also discussed that because of his overall failing status there is probably a good reason to consider palliative care/home health/possible hospice. He is scheduled to see Dr. Quintero next week and I would certainly appreciate his opinion regarding level of assistance needed. Procedure: After routine preoperative evaluation examination and obtaining of informed consent he was taken to the operating suite on 09/24/2022 where general anesthesia was administered without difficulty. Prepped and draped in usual sterile fashion in dorsolithotomy position paying careful attention to voiding pressure points. After adequate level of anesthesia was achieved the catheter was attempted again to be withdrawn but was too tight to pull out safely. A 6 Bh[place]anese mini scope was then introduced next to the catheter but could not be passed all the way into the bladder as expected. Attempted passage of a flexible tip guidewire was unsuccessful. A zip wire was then utilized and thankfully the wire did bypass the dystrophic calcification seen on CT scan in the anastomotic stricture and curled in the bladder. An open-ended ureteral catheter was advanced over the guidewire into the bladder contrast was injected for a cystogram that demonstrated somewhat reduced capacity of the bladder and trabeculation but no other gross abnormality. A regular flexible tip guidewire was then replaced back into the bladder through the open-ended ureteral catheter which was removed. The stricture was then dilated with Amplatz sounds from 8 Bh[place]anese to 12 Bhutanese. The mini scope was then passed over the guidewire into the bladder. There was a lot of dystrophic calcifications seen at the anastomotic stricture and also along the posterior floor of the bladder. Appear to be a lot of matrix eschar type of material on the posterior floor of the bladder. The scope was removed. At this point with the wire in place manipulation of the catheter allowed the catheter to be removed without excessive tension A 17 [place] cystoscope was then advanced into the bladder under direct vision after the wire been secured to the drapes as a safety wire. There were some fairly sizable stones were fragmented with a 200 ?m holmium laser fiber. There was also a ring of eschar/calcific density at the stricture but this could not be easily removed and appeared to be multiple layers of adherence probably representing some calcification of a sloughing/necrotic scar. A 21 [place]anese cystoscope was manipulated into the bladder and utilizing some manual grasping forceps some of the necrotic looking tissue was teased off the posterior wall of the bladder but it was not very successful. It did not appear to be this was just calcification but rather some sloughing tissue. There was no significant bleeding. Ultimately with the urethra well dilated it was decided to forego trying to be heroic removing the eschar type material and place a Negron catheter and complete the procedure. A 20 [place] catheter was converted to a cherokee tip catheter and passed over the wire through the stenotic area with good function confirmed, balloon inflated, balloon confirmed to be functioning before the wire was removed. Catheter was placed to dependent drainage. He tolerated procedure well without complications and was awakened in the operating room and returned to the recovery room in stable condition. PLANS: 1. Discharge from outpatient surgery is anticipated 2. Follow-up in 2 weeks for catheter change in clinic. This will be performed early due to the concern related to the dystrophic calcifications leading to catheter fixation as this catheter was found to be
[2022-09-24] MEDS: cefTRIAXone 1,000 MG in sodium chloride 0.9% (plus) 50 ML 100 MG IV (11:05)
[2022-09-24] MEDS: lidocaine 2% Urojet 20 mL TOPICAL (11:21)
[2022-09-24] MEDS: TRAMadol 50 mg Tablet PO (13:39)
--- NOTE | 2022-09-24 16:33 | ANE.PACU2 ---
Inpatient post-anesthesia follow up: Airway intact: Yes Vital signs: Temperature 98 F Pulse Rate 75 Respiratory Rate 16 Blood Pressure 160/98 Pulse Oximetry 97 Oxygen Delivery Me thod Room Air Oxygen Flow Rate Fraction of Inspir ed Oxygen Hydration adequate: Yes Nausea and vomiting: No Pain level: 1 Mental status: Baseline
[2022-09-29 14:04] LABS: Stone Source BLADDER
== END 2022-09-24 14:30 | disposition home or self-care (01) ==
PROVIDERS: PCP Family Medicine; Visit Provider Urology
PROC: (CPT 52315; 2022-09-24 11:40)
PROC: 0TJB8ZZ Inspection of Bladder, Via Natural or Artificial Opening Endoscopic (ICD-10-PCS; CPT 52000; 2022-09-24 11:40)
PROC: 0TCB8ZZ Extirpation of Matter from Bladder, Via Natural or Artificial Opening Endoscopic (ICD-10-PCS; CPT 52315; 2022-09-24 11:40)
PROC: (CPT 52315; 2022-09-24 11:40)
DX: T83.098A Other mechanical complication of other urinary catheter, initial encounter (principal); N28.89 Other specified disorders of kidney and ureter; I10 Essential (primary) hypertension; G20 Parkinson's disease
CPT/HCPCS: 52315; 52318; 76000; 82365; 88300; J0696; J2704; J3010; J3490; J7030; Q9967

== ENCOUNTER 2022-09-29 12:51 | Oncology outpatient (recurring) (ONCR) | payer OTHER, SELFPAY ==
[2022-09-29 13:38] LABS: Basophils # 0.1 10^3/uL (0.0-0.1); Basophils % 0.8 %; Eosinophils # 0.1 10^3/uL (0.0-0.8); Eosinophils % 2.2 %; Hematocrit 31.7 % (42.0-52.0); Hemoglobin 9.4 g/dL (11.7-16.6); Lymphocytes # 0.8 10^3/uL (0.8-4.8); Lymphocytes % 12.4 %; Mean Corpuscular HGB Conc 29.7 g/dL (30.0-36.0); Mean Corpuscular Hemoglobin 27.5 pg (28.0-34.0); Mean Corpuscular Volume 92.7 fl (80-94); Mean Platelet Volume 9.7 fL (7.4-10.4); Monocytes # 0.6 10^3/uL (0.2-0.9); Monocytes % 9.8 %; Neutrophils # 4.78 10^3/uL (1.8-7.7); Neutrophils % 74.2 %; Nucleated Red Blood Cells % 0 %; Platelet Count 204 10^3/cmm (130-400); Red Blood Count 3.42 10^6/uL (4.1-5.3); Red Cell Distribution Width 15.9 % (12.1-15.1); White Blood Count 6.4 10^3/uL (4.0-10.0)
[2022-09-29 14:08] LABS: Blood Urea Nitrogen 30 mg/dL (8-23); Carbon Dioxide 24 mmol/L (22-29); Chloride 103 mmol/L (98-107); Glucose 92 mg/dL (65-115); Osmolality Calculated 292 mOsm/kg (285-295); Sodium 138 mmol/L (136-145); Testosterone Total 13.4 ng/dL (193-740)
[2022-09-29] MEDS: leuprolide 22.5 mg Kit IM (15:50)
== END 2022-10-11 23:59 | disposition home or self-care (01) ==
PROVIDERS: Internal Medicine; PCP Family Medicine; Visit Provider Internal Medicine Hematology & Oncology
DX: C61 Malignant neoplasm of prostate (principal); R31.0 Gross hematuria; R53.1 Weakness; R53.82 Chronic fatigue, unspecified; D64.9 Anemia, unspecified; M25.552 Pain in left hip; M25.551 Pain in right hip; Z79.52 Long term (current) use of systemic steroids; Z79.818 Long term (current) use of other agents affecting estrogen receptors and estrogen levels; Z79.891 Long term (current) use of opiate analgesic; Z79.899 Other long term (current) drug therapy
CPT/HCPCS: 36415; 80048; 84153; 84403; 85025; 96402; 99215; J9217

== ENCOUNTER → 2022-10-08 12:41 | Outpatient (BNVA) | payer OTHER, SELFPAY | PROVIDERS: PCP Family Medicine; Visit Provider Urology | DX: N35.913 Unspecified membranous urethral stricture, male (principal); C61 Malignant neoplasm of prostate; R97.21 Rising PSA following treatment for malignant neoplasm of prostate; G20 Parkinson's disease | CPT/HCPCS: 52000; 99213 ==

== ENCOUNTER → 2022-11-06 10:08 | Outpatient (BNVA) | payer OTHER, SELFPAY | PROVIDERS: PCP Family Medicine; Visit Provider Urology | DX: C61 Malignant neoplasm of prostate (principal); N30.41 Irradiation cystitis with hematuria; R33.9 Retention of urine, unspecified | CPT/HCPCS: 51702; 99212 ==